=== PATIENT | female | born 1970 | race Caucasian/White ===

== ENCOUNTER 2020-12-19 10:57 | Emergency (ER) | payer OTHER ==
--- OUTSIDE RECORDS SUMMARY | 2020-12-19 10:59 | XMS REPORT | Continuity of Care Document ---
:1970 Author Organization [facility] t Address [address] [place] [address] Care Team Providers Name Role Phone Sherwin SZYMANSKI Attending Clinician 2, Lab Attending Clinician Unavailable Problems This patient has no known problems. Allergies, Adverse Reactions, Alerts This patient has no known allergies or adverse reactions. Medications This patient has no known medications. Procedures This patient has no known procedures. Encounters Start End Encounter Admission Attending Care Care Encounter Source Date/Time Date/Time Type Type Clinicians Facility Department ID 2020-11-08 2020-11-08 Refill LM Courtney [id number] 00:00:00 00:00:00 Mak Aguilar [id number] [place] [id number] Professio [phone] [facility] 2020-11-02 2020-11-02 Mailing Clerk 2, [facility] Lab [facility] [[email or web address]] [id number] 13:24:05 13:39:05 Visit Lauren [id number] Bl[place] [id number] Professio [phone] [facility] 2020-11-02 2020-11-02 Office LM Cuortney [id number] 11:28:22 11:49:50 Visit Mak Aguilar [id number] [place] [id number] Professio [phone] 9 [facility] Results This patient has no known results.
[2020-12-19 11:26] LABS: Urine Blood Negative (Negative); Urine Glucose 1+ (Negative); Urine Protein Negative (Negative); Urine Specific Gravity 1.025 (1.005-1.030)
[2020-12-19] MEDS ORDERED: NA CHLORIDE 0.9% 1,000 ML ONE (11:39)
[2020-12-19] MEDS ORDERED: ONDANSETRON 4 MG/2 ML VIAL ONE (11:39)
[2020-12-19] MEDS ORDERED: MORPHINE 4 MG/ML SYR ONE (11:39)
[2020-12-19 11:51] LABS: Absolute Lymphocytes (CBC) 1.6 K/uL (0.7-4.9); Basophils % 0.4 % (0-1.3); Hematocrit 39.5 % (36.0-45.0); Lymphocytes % 14.4 % (15.3-44.8); MPV 8.2 fL (7.6-11.3); RBC Red Blood Cell Count 4.73 M/uL (3.86-4.86)
[2020-12-19 11:54] LABS: Urine RBC <5 /HPF (NONE SEEN)
[2020-12-19 11:55] LABS: Urine Bacteria <20 /HPF (<20); Urine Mucus 1+ /HPF (NONE SEEN)
[2020-12-19 12:02] LABS: Albumin 3.2 g/dL (3.4-5.0); Bilirubin Direct 0.2 mg/dL (0-0.2); Bilirubin Total 0.7 mg/dL (0.2-1.0); Potassium 3.9 mmol/L (3.5-5.1); Protein, Total 7.9 g/dL (6.4-8.2)
--- NOTE | 2020-12-19 13:04 | RAD REPORT ---
EXAM DESCRIPTION: CT - Abdomen Pelvis W Contrast - 12/19/2020 12:35 pm CLINICAL HISTORY: Abdominal pain COMPARISON: 2016 TECHNIQUE: Computed axial tomography of the abdomen pelvis was obtained. 100 cc Isovue-300 was admin istered intravenously. Oral contrast was not requested which limits evaluation of bowel. All CT scans are performed using dose optimization technique as appropriate and may include automated exposure control or mA/KV adjustment according to patient size. FINDINGS: Fatty liver Spleen, pancreas, adrenals and kidneys unremarkable Normal appendix. Diverticula stem from the colon. Mild to moderate stranding adjacent to sigmoid colon Prominence of the endometrium. If the patient is premenopausal this is normal. If the patient is post menopausal this is abnormal Small umbilical hernia IMPRESSION: Mild to moderate sigmoid diverticulitis
--- NOTE | 2020-12-19 13:26 | ER ---
Nurse's Notes [facility] Name: Adilson Patel Age: 50 yrs Sex: Female : 1970 Arrival Date: 12/19/2020 Time: 11:00 Bed 16 Private MD: Diagnosis: Diverticulitis of intestine, part unspecified, without perforation or abscess without bleeding Presentation: 12/19 11:08 Chief complaint: Right flank pain that radiates to lower abdomen and nausea x 4 days. hb Denies fever/diarrhea/urinary symptoms. Coronavirus screen: At this time, the client does not indicate any symptoms associated with coronavirus-19. Ebola Screen: No symptoms or risks identified at this time. Initial Sepsis Screen: Does the patient meet any 2 criteria? No. Patient's initial sepsis screen is negative. Does the patient have a suspected source of infection? No. Patient's initial sepsis screen is negative. Risk Assessment: Do you want to hurt yourself or someone else? Patient reports no desire to harm self or others. Onset of symptoms was December 15, 2020. 11:08 Method Of Arrival: Ambulatory hb 11:08 Acuity: OVIDIO 3 hb Triage Assessment: 12:26 General: Appears in no apparent distress. Behavior is calm, cooperative, appropriate tr6 for age. Pain: Complains of pain in lower abdomen. EENT: No deficits noted. Neuro: No deficits noted. Cardiovascular: No deficits noted. Respiratory: No deficits noted. GI: Abdomen is round. : No deficits noted. Derm: No deficits noted. Musculoskeletal: No deficits noted. Historical: - Allergies: 11:10 Latex, Natural Rubber; hb 11:10 mycins; hb - Home Meds: 11:10 metformin 1,000 mg Oral tab 1 tab 2 times per day [Active]; Vitamin D3 1,000 unit Oral hb tab daily [Active]; - PMHx: 11:10 Diabetes - NIDDM; Kidney stones; Ovarian cyst; hb - PSHx: 11:10 HEART CATH; hb - Immunization history:: Adult Immunizations up to date. - Social history:: Smoking status: Patient denies any tobacco usage or history of. Screenin:38 Abuse screen: Denies threats or abuse. Denies injuries from another. Nutritional tr6 screening: No deficits noted. Tuberculosis screening: No symptoms or risk factors identified. Fall Risk None identified. Assessment: 12:26 Reassessment: pt transported to CT via wheelchair. tr6 13:16 GI: Bowel sounds present X 4 quads. Abdomen is tender to palpation LLQ. tr6 Vital Signs: 11:08 BP 168 / 75; Pulse 96; Resp 16; Temp 97.9(TE); Pulse Ox 100% on R/A; Weight 79.38 kg; hb Height 5 ft. 3 in. (160.02 cm); Pain 8/10; 13:16 BP 115 / 76; Pulse 80; Resp 18; Pulse Ox 100% on R/A; tr6 11:08 Body Mass Index 31.00 (79.38 kg, 160.02 cm) hb ED Course: 11:00 Patient arrived in ED. mr 11:08 Rosanna Tate FNP-C is PHCP. kb 11:08 Luis Underwood MD is Attending Physician. kb 11:09 Triage completed. hb 11:10 Arm band placed on. hb 11:13 Umm Moses, GINA is Primary Nurse. tr6 11:32 Urine Microscopic Only Sent. dh3 11:38 Inserted saline lock: 18 gauge in left forearm, using aseptic technique. Blood tr6 collected. 12:28 Patient has correct armband on for positive identification. Bed in low position. Call tr6 light in reach. Side rails up X 1. environmental monitoring specialist on. Pulse ox on. NIBP on. Door closed. Noise minimized. Visitors limited. Warm blanket given. 12:28 No provider procedures requiring assistance completed. tr6 12:35 CT Abd/Pelvis - IV Contrast Only In Process Unspecified. EDMS 13:25 IV discontinued, intact, bleeding controlled, No redness/swelling at site. Pressure tr6 dressing applied. Administered Medications: 11:37 Drug: NS 0.9% 1000 ml Route: IV; Rate: 1000 ml; Site: left forearm; tr6 12:27 Follow up: Response: No adverse reaction; IV Status: Completed infusion; IV Intake: tr6 1000ml 11:37 Drug: Zofran (Ondansetron) 4 mg Route: IVP; Site: left forearm; tr6 12:27 Follow up: Response: No adverse reaction tr6 11:37 Drug: morphine 4 mg Route: IVP; Site: left forearm; tr6 12:27 Follow up: Response: No adverse reaction tr6 13:14 Drug: Flagyl (metroNIDAZOLE) 500 mg Route: PO; tr6 13:44 Follow up: Response: No adverse reaction tr6 13:15 Drug: Cipro (ciprofloxacin) 500 mg Route: PO; tr6 13:44 Follow up: Response: No adverse reaction tr6 Intake: 12:27 IV: 1000ml; Total: 1000ml. tr6 Outcome: 13:25 Discharge ordered by MD. josé 13:40 Discharged to home ambulatory. tr6 13:40 Condition: stable 13:40 Discharge instructions given to patient, Instructed on discharge instructions, follow up and referral plans. no drinking with medication, medication usage, safety practices, Demonstrated understanding of instructions, follow-up care, medications, Prescriptions given X 4. 14:04 Patient left the ED. tr6 Signatures: Dispatcher [employer] EDMS Rosanna Tate, BATTALION FIRE CHIEF-C BATTALION FIRE CHIEF-Elizabeth Douglas Heather, RN RN hb Herrera, Deanna [facility] Umm Moses RN RN tr6
--- NOTE | 2020-12-19 13:26 | EDPHYS ---
Physician Documentation [facility] Name: Adilson Patel Age: 50 yrs Sex: Female : 1970 Arrival Date: 12/19/2020 Time: 11:00 Bed 16 Private MD: ED Physician Luis Underwood HPI: 12/19 14:04 This 50 yrs old Female presents to ER via Ambulatory with complaints of kb Abdominal Pain. 14:04 The patient presents with abdominal pain in the lower abdomen. The symptoms do not kb radiate. The patient has not experienced similar symptoms in the past. The patient has not recently seen a physician. 14:04 Onset: The symptoms/episode began/occurred 4 day(s) ago. Associated signs and symptoms: kb none. The symptoms are described as constant. Modifying factors: The symptoms are alleviated by nothing, the symptoms are aggravated by nothing. Severity of pain: At its worst the pain was mild moderate in the emergency department the pain is unchanged. Pt reports right flank pain that radiates into right lower abd that started 4 days ago. States the pain is now across entire lower abdomen. Denies n/v/d, fever/chills. Historical: - Allergies: 11:10 Latex, Natural Rubber; hb 11:10 mycins; hb - Home Meds: 11:10 metformin 1,000 mg Oral tab 1 tab 2 times per day [Active]; Vitamin D3 1,000 unit Oral hb tab daily [Active]; - PMHx: 11:10 Diabetes - NIDDM; Kidney stones; Ovarian cyst; hb - PSHx: 11:10 HEART CATH; hb - Immunization history:: Adult Immunizations up to date. - Social history:: Smoking status: Patient denies any tobacco usage or history of. ROS: 14:03 Constitutional: Negative for fever, chills, and weight loss. kb 14:03 Abdomen/GI: Positive for abdominal pain, Negative for nausea, vomiting, and diarrhea. 14:03 All other systems are negative. Exam: 14:03 Constitutional: This is a well developed, well nourished patient who is awake, alert, kb and in no acute distress. Head/Face: Normocephalic, atraumatic. ENT: Moist Mucous membranes Cardiovascular: Regular rate and rhythm with a normal S1 and S2. No gallops, murmurs, or rubs. No pulse deficits. Respiratory: Respirations even and unlabored. No increased work of breathing, no retractions or nasal flaring. Skin: Warm, dry with normal turgor. Normal color. MS/ Extremity: Pulses equal, no cyanosis. Neurovascular intact. Full, normal range of motion. Neuro: Awake and alert, GCS 15, oriented to person, place, time, and situation. Moves all extremities. Normal gait. Psych: Awake, alert, with orientation to person, place and time. Behavior, mood, and affect are within normal limits. 14:03 Abdomen/GI: Inspection: abdomen appears normal, Bowel sounds: normal, in all quadrants, Palpation: soft, in all quadrants, mild abdominal tenderness, in the right lower quadrant, moderate abdominal tenderness, in the left lower quadrant. Vital Signs: 11:08 BP 168 / 75; Pulse 96; Resp 16; Temp 97.9(TE); Pulse Ox 100% on R/A; Weight 79.38 kg; hb Height 5 ft. 3 in. (160.02 cm); Pain 8/10; 13:16 BP 115 / 76; Pulse 80; Resp 18; Pulse Ox 100% on R/A; tr6 11:08 Body Mass Index 31.00 (79.38 kg, 160.02 cm) hb MDM: 11:08 Patient medically screened. kb 14:02 Data reviewed: vital signs, nurses notes. Data interpreted: Pulse oximetry: on room air kb is 100 %. Interpretation: normal. Counseling: I had a detailed discussion with the patient and/or guardian regarding: the historical points, exam findings, and any diagnostic results supporting the discharge/admit diagnosis, lab results, radiology results, the need for outpatient follow up, a family practitioner, a lode miner blasting, to return to the emergency department if symptoms worsen or persist or if there are any questions or concerns that arise at home. 14:05 ED course: Discussed outpatient antibiotic treatment with pt. Pt in agreement with kb that. Pt educated to return immediately for severe pain, inability to tolerate PO medications and any other concerns. . 12/19 11:08 Order name: Basic Metabolic Panel 12/19 11:08 Order name: CBC with Diff 12/19 11:08 Order name: Hepatic Function 12/19 11:08 Order name: Lipase 12/19 11:09 Order name: Basic Metabolic Panel; Complete Time: 12:04 EDWA 12/19 11:09 Order name: CBC with Automated Diff; Complete Time: 12:50 EDWA 12/19 11:09 Order name: Liver (Hepatic) Function; Complete Time: 12:04 EDWA 12/19 11:09 Order name: Lipase; Complete Time: 12:04 EDWA 12/19 11:26 Order name: Urine Dipstick-Ancillary EDWA 12/19 11:26 Order name: Urine Microscopic Only em1 12/19 11:27 Order name: Urine Microscopic Only; Complete Time: 11:55 EDMS 12/19 12:05 Order name: CT Abd/Pelvis - IV Contrast Only; Complete Time: 13:05 kb 12/19 11:08 Order name: IV Saline Lock; Complete Time: 11:38 kb 12/19 11:08 Order name: Labs collected and sent; Complete Time: 11:38 kb 12/19 11:13 Order name: Urine Dipstick-Ancillary (obtain specimen); Complete Time: 11:26 kb Administered Medications: 11:37 Drug: NS 0.9% 1000 ml Route: IV; Rate: 1000 ml; Site: left forearm; tr6 12:27 Follow up: Response: No adverse reaction; IV Status: Completed infusion; IV Intake: tr6 1000ml 11:37 Drug: Zofran (Ondansetron) 4 mg Route: IVP; Site: left forearm; tr6 12:27 Follow up: Response: No adverse reaction tr6 11:37 Drug: morphine 4 mg Route: IVP; Site: left forearm; tr6 12:27 Follow up: Response: No adverse reaction tr6 13:14 Drug: Flagyl (metroNIDAZOLE) 500 mg Route: PO; tr6 13:44 Follow up: Response: No adverse reaction tr6 13:15 Drug: Cipro (ciprofloxacin) 500 mg Route: PO; tr6 13:44 Follow up: Response: No adverse reaction tr6 Disposition: 12/19/20 13:25 Discharged to Home. Impression: Diverticulitis of intestine, part unspecified, without perforation or abscess without bleeding. - Condition is Stable. - Discharge Instructions: Diverticulitis, [id number]. - Prescriptions for Flagyl 500 mg Oral Tablet - take 1 tablet by ORAL route every 8 hours for 10 days; 30 tablet. Zofran 4 mg Oral Tablet - take 1 tablet by ORAL route every 6 hours As needed; 20 tablet. Cipro 500 mg Oral Tablet - take 1 tablet by ORAL route every 12 hours for 10 days; 20 tablet. Tramadol 50 mg Oral Tablet - take 1 tablet by ORAL route every 8 hours as needed; 12 tablet. - Medication Reconciliation Form, Thank You Letter, Antibiotic Education, Prescription Opioid Use, Work release form form. - Follow up: Emergency Department; When: As needed; Reason: Worsening of condition. Follow up: Private Physician; When: 2 - 3 days; Reason: Recheck today's complaints, Continuance of care, Re-evaluation by your physician. Addendum: 12/23/2020 06:57 Co-signature as Attending Physician, Luis Underwood MD. m a2 Signatures: Dispatcher [employer] EDMS Rosanna Tate, PATI-C PATI-Radha Poon, RN RN Luis Underwood MD MD ma2 Umm Moses RN RN tr6 Corrections: (The following items were deleted from the chart) 12/19 14:04 13:25 12/19/2020 13:25 Discharged to Home. Impression: Diverticulitis of intestine, tr6 part unspecified, without perforation or abscess without bleeding. Condition is Stable. Forms are Work release form, Medication Reconciliation Form, Thank You Letter, Antibiotic Education, Prescription Opioid Use. Follow up: Emergency Department; When: As needed; Reason: Worsening of condition. Follow up: Private Physician; When: 2 - 3 days; Reason: Recheck today's complaints, Continuance of care, Re-evaluation by your physician. kb
[2020-12-19] MEDS ORDERED: CIPROFLOXACIN HCL 500 MG TAB ONE (13:33)
[2020-12-19] MEDS ORDERED: metroNIDAZOLE 500 MG TABLET ONE (13:33)
[2020-12-19 14:35] VITALS: TEMP 97.9; O2SAT 100
[2020-12-19 14:36] VITALS: BP 115/76
== END 2020-12-19 14:04 | disposition home or self-care (01) ==
LOC: ER 10:57
DX: K57.32 Diverticulitis of large intestine without perforation or abscess without bleeding (principal); E11.9 Type 2 diabetes mellitus without complications; Z88.3 Allergy status to other anti-infective agents; Z91.040 Latex allergy status; Z91.048 Other nonmedicinal substance allergy status
CPT/HCPCS: 85025; 80048; 36415; 80076; 83690; 74177; Q9967; J7030; J2405; 81003; 81015; 96361; 96374; 96375; 99284

== ENCOUNTER 2021-05-22 09:37 | Emergency (ER) | payer OTHER ==
[2021-05-22 10:15] LABS: Absolute Lymphocytes (CBC) 2.4 K/uL (0.7-4.9); Basophils % 0.7 % (0-1.3); Hematocrit 38.7 % (36.0-45.0); Lymphocytes % 23.3 % (15.3-44.8); RBC Red Blood Cell Count 4.65 M/uL (3.86-4.86)
[2021-05-22 10:22] LABS: Urine Blood Negative (Negative); Urine Glucose Negative (Negative); Urine Protein Negative (Negative); Urine pH 5.5 (5.0-7.0)
[2021-05-22] MEDS ORDERED: CIPROFLOXACIN 400mg IV 400 MG/200 ML BAG IV ONE (10:32)
[2021-05-22] MEDS ORDERED: WATER FOR INJ,STERILE 10 ML ONE (10:32)
[2021-05-22] MEDS ORDERED: CEFTRIAXONE 500 MG/VIAL ONE (10:32)
[2021-05-22] MEDS ORDERED: NA CHLORIDE 0.9% 1,000 ML ONE (10:33)
[2021-05-22] MEDS ORDERED: METRONIDAZOLE 500mg IVPB 500 MG/100 ML BAG IV ONE (10:33)
--- NOTE | 2021-05-22 11:14 | RAD REPORT ---
EXAM DESCRIPTION: CTAbdomen Pelvis W Contrast - 05/22/2021 10:31 am CLINICAL HISTORY: Abdominal pain. ABD PAIN COMPARISON: Abdomen Pelvis W Contrast dated 12/19/2020; Abdomen Pelvis W Contrast dated 03/21/2017 ; Abdomen Pelvis W Contrast dated 07/10/2016 TECHNIQUE: Biphasic CT imaging of the abdomen and pelvis was performed with 100 ml non-ionic IV cont rast. All CT scans are performed using dose optimization technique as appropriate and may include automated exposure control or mA/KV adjustment according to patient size. FINDINGS: The lung bases are clear. The liver demonstrates diffuse fatty infiltration. Spleen, pancreas, adrenal glands and kidneys are w ithin normal limits. No bowel obstruction, free air, free fluid or abscess. Mild sigmoid diverticulosis is present without diverticulitis. The appendix is normal. No evidence of significant lymphadenopathy. No suspicious bony findings. IMPRESSION: No acute intra-abdominal or pelvic finding. Mild sigmoid diverticulosis coli. Diffuse fatty liver.
--- NOTE | 2021-05-22 11:18 | ER ---
Nurse's Notes [facility] Name: Adilson Patel Age: 51 yrs Sex: Female : 1970 Arrival Date: 05/22/2021 Time: 09:39 Bed 14 Private MD: Diagnosis: Abdominal pain, Generalized;Diverticulitis of large intestine without perforation or abscess without bleeding Presentation: 05/22 09:56 Chief complaint: Patient states: c/o abd pain and spasm x 2 days. Coronavirus screen: [facility] Vaccine status: Patient reports being unvaccinated. Client denies travel out of the [place] in the last 14 days. Client indicates they have traveled out of the [place] in the last 14 days. Ebola Screen: Patient negative for fever greater than or equal to 101.5 degrees Fahrenheit, and additional compatible Ebola Virus Disease symptoms Patient denies exposure to infectious person. Patient denies travel to an Ebola-affected area in the 21 days before illness onset. Initial Sepsis Screen: Does the patient meet any 2 criteria? No. Patient's initial sepsis screen is negative. Does the patient have a suspected source of infection? No. Patient's initial sepsis screen is negative. Risk Assessment: Do you want to hurt yourself or someone else? Patient reports no desire to harm self or others. Onset of symptoms was May 20, 2021. 09:56 Method Of Arrival: Ambulatory [facility] 09:56 Acuity: OVIDIO 3 jw6 Triage Assessment: 09:59 General: Appears uncomfortable, Behavior is calm, cooperative. Pain: Complains of pain jw6 in abdomen Pain does not radiate. Pain currently is 10 out of 10 on a pain scale. EENT: No deficits noted. Neuro: No deficits noted. Cardiovascular: No deficits noted. Respiratory: No deficits noted. GI: Reports lower abdominal pain, cramping, nausea. : No deficits noted. Derm: No deficits noted. Musculoskeletal: No deficits noted. CLINICAL NURSE SPECIALIST: 10:25 0, LMP 04/29/2021 6 Historical: - Allergies: 09:58 Latex, Natural Rubber; ll1 09:58 mycins; ll1 09:59 Latex, Natural Rubber; jw6 - Home Meds: 09:59 metformin 1,000 mg Oral tab 1 tab 2 times per day [Active]; Vitamin D3 1,000 unit Oral jw6 tab daily [Active]; - PMHx: 09:58 Diabetes - NIDDM; Kidney stones; Ovarian cyst; Hypercholesterolemia; Hypertensive ll1 disorder; 10:02 Diverticulitis; ll1 - PSHx: 09:58 heart cath; ll1 - Immunization history:: Client reports receiving the 2nd dose of the Covid vaccine, Adult Immunizations up to date. - Social history:: Smoking status: Patient denies any tobacco usage or history of. Smoking status: Patient denies any tobacco usage or history of. - Family history:: not pertinent. Screenin:01 Abuse screen: Denies threats or abuse. Denies injuries from another. Nutritional jw6 screening: No deficits noted. Tuberculosis screening: No symptoms or risk factors identified. Fall Risk IV access (20 points). Assessment: 10:01 General: Appears distressed, Behavior is cooperative. Pain: Complains of pain in jw6 abdomen Pain does not radiate. Pain currently is 10 out of 10 on a pain scale. Neuro: No deficits noted. Cardiovascular: No deficits noted. Respiratory: No deficits noted. GI: Bowel sounds present X 4 quads. Abdomen is tender to palpation X 4 quads. Reports nausea. : No deficits noted. EENT: No deficits noted. Derm: No deficits noted. Musculoskeletal: No deficits noted. Vital Signs: 09:56 BP 150 / 75; Pulse 96; Resp 18; Pulse Ox 100% ; Weight 77.11 kg; Height 5 ft. 3 in. jw6 (160.02 cm); Pain 10/10; 09:59 BP 140 / 86; Pulse 79; Resp 17; Temp 97.6; Pulse Ox 98% ; Weight 77.11 kg; Height 5 ft. ll1 3 in. (160.02 cm); Pain 8/10; 10:01 BP 140 / 86; Resp 18; Pulse Ox 98% on R/A; jw6 09:59 Body Mass Index 30.11 (77.11 kg, 160.02 cm) ll1 ED Course: 09:39 Patient arrived in ED. as 09:40 Shad Johnston MD is Attending Physician. [facility] 09:56 Crystal Laura is Primary Nurse. jw6 09:58 Arm band placed on Patient placed in an exam room, on a stretcher. ll1 09:59 Triage completed. jw6 10:01 Patient has correct armband on for positive identification. Bed in low position. Call jw6 light in reach. Side rails up X 1. 10:01 Initial lab(s) drawn, by me, sent to lab. Inserted saline lock: 20 gauge in right jw6 forearm, using aseptic technique. 10:30 CT Abd/Pelvis - IV Contrast Only In Process Unspecified. EDMS 11:17 Leonor cMginnis MD is Referral Physician. [facility] Administered Medications: 10:24 Drug: Rocephin (cefTRIAXone) 2 grams Route: IV; Rate: per protocol; Site: right forearm;jw6 10:24 Follow up: Response: No adverse reaction; IV Status: Completed infusion jw6 10:40 Drug: Flagyl (metroNIDAZOLE) 500 mg Volume: 100 ml; Route: IVPB; Rate: 200 ml/hr; jw6 Infused Over: 30 mins; Site: right forearm; 10:50 Follow up: Response: No adverse reaction; IV Status: Completed infusion; IV Intake: jw6 100ml 10:41 Drug: NS 0.9% 1000 ml Route: IV; Rate: 1 bolus; Site: right forearm; jw6 10:50 Drug: Cipro (ciprofloxacin) 400 mg Volume: 200 ml; Route: IVPB; Infused Over: 60 mins; jw6 Site: right forearm; 12:01 Drug: Zofran (Ondansetron) 4 mg Route: IVP; Site: right forearm; jw6 12:01 Follow up: Response: No adverse reaction jw6 Intake: 10:50 IV: 100ml; Total: 100ml. jw6 Outcome: 11:17 Discharge ordered by . [facility] 12:31 Patient left the ED. jw6 Signatures: Dispatcher [employer] EDOH Shad Johnston MD MD cha Martinez, Amelia as Lewis, Lynsay, RN RN ll1 Crystal Laura jw6
--- NOTE | 2021-05-22 11:18 | EDPHYS ---
Physician Documentation [facility] Name: Adilson Patel Age: 51 yrs Sex: Female : 1970 Arrival Date: 05/22/2021 Time: 09:39 Bed 14 Private MD: HAIM Physician Shad Johnston HPI: 05/22 10:14 This 51 yrs old Female presents to ER via Ambulatory with complaints of molly Abdominal Pain. 10:14 The patient presents with abdominal pain in the left upper quadrant, in the left lower molly quadrant, abdominal distention in the upper abdomen, in the lower abdomen. Onset: The symptoms/episode began/occurred 3 day(s) ago. The symptoms do not radiate. Associated signs and symptoms: Pertinent positives: nausea and vomiting. The symptoms are described as crampy, dull. Modifying factors: The symptoms are alleviated by nothing, the symptoms are aggravated by nothing. Severity of pain: At its worst the pain was mild moderate in the emergency department the pain is unchanged. The patient has experienced similar episodes in the past, several times. 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 - Social history:: Smoking status: Patient denies any tobacco usage or history of. Smoking status: Patient denies any tobacco usage or history of. - Family history:: not pertinent. ROS: 10:14 Constitutional: Negative for fever, chills, and weight loss, Eyes: Negative for injury, molly pain, redness, and discharge, ENT: Negative for injury, pain, and discharge, Neck: Negative for injury, pain, and swelling, Cardiovascular: Negative for chest pain, palpitations, and edema, Respiratory: Negative for shortness of breath, cough, wheezing, and pleuritic chest pain, Back: Negative for injury and pain, : Negative for injury, bleeding, discharge, and swelling, MS/Extremity: Negative for injury and deformity, Skin: Negative for injury, rash, and discoloration, Neuro: Negative for headache, weakness, numbness, tingling, and seizure, Psych: Negative for depression, anxiety, suicide ideation, homicidal ideation, and hallucinations, Allergy/Immunology: Negative for hives, rash, and allergies, Endocrine: Negative for neck swelling, polydipsia, polyuria, polyphagia, and marked weight changes, Hematologic/Lymphatic: Negative for swollen nodes, abnormal bleeding, and unusual bruising. 10:14 Abdomen/GI: Positive for abdominal pain, nausea and vomiting, of the left upper quadrant and left lower quadrant. Exam: 10:14 Constitutional: This is a well developed, well nourished patient who is awake, alert, molly and in no acute distress. Head/Face: Normocephalic, atraumatic. Eyes: Pupils equal round and reactive to light, extra-ocular motions intact. Lids and lashes normal. Conjunctiva and sclera are non-icteric and not injected. Cornea within normal limits. Periorbital areas with no swelling, redness, or edema. ENT: Nares patent. No nasal discharge, no septal abnormalities noted. Tympanic membranes are normal and external auditory canals are clear. Oropharynx with no redness, swelling, or masses, exudates, or evidence of obstruction, uvula midline. Mucous membranes moist. Neck: Trachea midline, no thyromegaly or masses palpated, and no cervical lymphadenopathy. Supple, full range of motion without nuchal rigidity, or vertebral point tenderness. No Meningismus. Chest/axilla: Normal chest wall appearance and motion. Nontender with no deformity. No lesions are appreciated. Cardiovascular: Regular rate and rhythm with a normal S1 and S2. No gallops, murmurs, or rubs. Normal PMI, no JVD. No pulse deficits. Respiratory: Lungs have equal breath sounds bilaterally, clear to auscultation and percussion. No rales, rhonchi or wheezes noted. No increased work of breathing, no retractions or nasal flaring. Back: No spinal tenderness. No costovertebral tenderness. Full range of motion. Female : Normal external genitalia. Skin: Warm, dry with normal turgor. Normal color with no rashes, no lesions, and no evidence of cellulitis. MS/ Extremity: Pulses equal, no cyanosis. Neurovascular intact. Full, normal range of motion. Neuro: Awake and alert, GCS 15, oriented to person, place, time, and situation. Cranial nerves II-XII grossly intact. Motor strength 5/5 in all extremities. Sensory grossly intact. Cerebellar exam normal. Normal gait. Psych: Awake, alert, with orientation to person, place and time. Behavior, mood, and affect are within normal limits. 10:14 Abdomen/GI: Inspection: distension, that is mild, Bowel sounds: active, Palpation: mild abdominal tenderness, in the left upper quadrant and left lower quadrant, Liver: no appreciated palpable abnormalities, Hernia: not appreciated. Vital Signs: 09:56 BP 150 / 75; Pulse 96; Resp 18; Pulse Ox 100% ; Weight 77.11 kg; Height 5 ft. 3 in. jw6 (160.02 cm); Pain 10/10; 09:59 BP 140 / 86; Pulse 79; Resp 17; Temp 97.6; Pulse Ox 98% ; Weight 77.11 kg; Height 5 ft. ll1 3 in. (160.02 cm); Pain 8/10; 10:01 BP 140 / 86; Resp 18; Pulse Ox 98% on R/A; jw6 09:59 Body Mass Index 30.11 (77.11 kg, 160.02 cm) ll1 MDM: 09:45 Patient medically screened. [facility] 10:17 Differential diagnosis: bowel obstruction, cholecystitis, Cholelithiasis, molly diverticulitis, gastritis, Irritable bowel syndrome, Mesenteric ischemia or infarction, non-specific abd pain, pancreatitis, Peptic Ulcer Disease, Pyelonephritis, urinary tract infection. Data reviewed: vital signs, nurses notes, lab test result(s), radiologic studies, CT scan. Data interpreted: Pulse oximetry: is not applicable for this patient encounter. on room air. Counseling: I had a detailed discussion with the patient and/or guardian regarding: the historical points, exam findings, and any diagnostic results supporting the discharge/admit diagnosis, lab results, radiology results. 05/22 10:00 Order name: Basic Metabolic Panel [facility] 05/22 10:00 Order name: CBC with Diff; Complete Time: 10:57 [facility] 05/22 10:00 Order name: Hepatic Function [facility] 05/22 10:00 Order name: Lipase molly 05/22 10:00 Order name: Urine Culture [facility] 05/22 10:22 Order name: Urine Dipstick-Ancillary; Complete Time: 10:57 EDMS 05/22 10:00 Order name: IV Saline Lock; Complete Time: 10:03 [facility] 05/22 10:00 Order name: CT Abd/Pelvis - IV Contrast Only; Complete Time: 11:17 [facility] 05/22 10:23 Order name: Urine --Ancillary (enter results) 05/22 10:00 Order name: Labs collected and sent; Complete Time: 10:03 [facility] 05/22 10:00 Order name: Urine Dipstick-Ancillary (obtain specimen) [facility] 05/22 10:19 Order name: Urine Test (obtain specimen); Complete Time: 10:41 [facility] Administered Medications: 10:24 Drug: Rocephin (cefTRIAXone) 2 grams Route: IV; Rate: per protocol; Site: right forearm;jw6 10:24 Follow up: Response: No adverse reaction; IV Status: Completed infusion jw6 10:40 Drug: Flagyl (metroNIDAZOLE) 500 mg Volume: 100 ml; Route: IVPB; Rate: 200 ml/hr; jw6 Infused Over: 30 mins; Site: right forearm; 10:50 Follow up: Response: No adverse reaction; IV Status: Completed infusion; IV Intake: jw6 100ml 10:41 Drug: NS 0.9% 1000 ml Route: IV; Rate: 1 bolus; Site: right forearm; jw6 10:50 Drug: Cipro (ciprofloxacin) 400 mg Volume: 200 ml; Route: IVPB; Infused Over: 60 mins; jw6 Site: right forearm; 12:01 Drug: Zofran (Ondansetron) 4 mg Route: IVP; Site: right forearm; jw6 12:01 Follow up: Response: No adverse reaction jw6 Disposition Summary: 05/22/21 11:17 Discharge Ordered Location: Home molly Problem: new molly Symptoms: have improved molly Condition: Stable molly Diagnosis - Abdominal pain, Generalized molly - Diverticulitis of large intestine without perforation or abscess without bleeding molly Followup: molly - With: Private Physician - When: 2 - 3 days - Reason: Recheck today's complaints, Continuance of care, Re-evaluation by your physician Followup: molly - With: - When: 2 - 3 days - Reason: Recheck today's complaints, Continuance of care, Re-evaluation by your physician Discharge Instructions: - Discharge Summary Sheet molly - Abdominal Pain, Adult molly - High-Fiber Diet molly - Diverticulitis molly - Diverticulitis, [id number] [facility] - Form - Excuse from Work, School, or Physical Activity jw6 Forms: - Medication Reconciliation Form [facility] - Thank You Letter molly - Antibiotic Education [facility] - Prescription Opioid Use [facility] Prescriptions: - Flagyl 500 mg Oral Tablet - take 1 tablet by ORAL route every 6 hours for 10 days; 40 tablet; Refills: 0, [facility] Product Selection Permitted - Zofran 4 mg Oral Tablet - take 1 tablet by ORAL route every 12 hours As needed; 20 tablet; Refills: 0, [facility] Product Selection Permitted - Cipro 500 mg Oral Tablet - take 1 tablet by ORAL route every 12 hours for 10 days; 20 tablet; Refills: 0, [facility] Product Selection Permitted - dicyclomine 20 mg Oral Tablet - take 2 tablets by ORAL route 4 times per day; 28 tablet; Refills: 0, Product [facility] Selection Permitted Signatures: Dispatcher [employer] Shad Gomez MD MD cha Lewis, Lynsay, RN RN ll1 Crystal Laura jw6
[2021-05-22] MEDS ORDERED: ONDANSETRON 4 MG/2 ML VIAL ONE (12:24)
[2021-05-22 12:56] VITALS: BP 140/86; TEMP 97.6; O2SAT 98
[2021-05-22 13:07] LABS: ALT/SGPT 56 U/L (12-78); AST/SGOT 41 U/L (15-37); Albumin 3.3 g/dL (3.4-5.0); Alkaline Phosphatase 106 U/L (45-117); BUN Blood Urea Nitrogen 7 mg/dL (7-18); Bicarbonate 28 mmol/L (21-32); Bilirubin Direct 0.1 mg/dL (0-0.2); Bilirubin Total 0.5 mg/dL (0.2-1.0); Glucose Level 185 mg/dL (74-106); Lipase 291 U/L (73-393); Potassium 3.8 mmol/L (3.5-5.1); Protein, Total 7.9 g/dL (6.4-8.2); Sodium Level 140 mmol/L (136-145)
== END 2021-05-22 12:31 | disposition home or self-care (01) ==
LOC: ER 09:37
DX: K57.32 Diverticulitis of large intestine without perforation or abscess without bleeding (principal); E11.9 Type 2 diabetes mellitus without complications; I10 Essential (primary) hypertension; Z88.3 Allergy status to other anti-infective agents; Z91.040 Latex allergy status; Z91.048 Other nonmedicinal substance allergy status
CPT/HCPCS: 87088; 85025; 87086; 80048; 36415; 81025; 82565; 80076; 81003; 83690; 74177; 96375; 96374; 99284; Q9967; J7030; J2405; J0696; J0744

== ENCOUNTER 2021-07-26 16:32 | Emergency (ER) | payer OTHER, SELFPAY ==
--- OUTSIDE RECORDS SUMMARY | 2021-07-26 16:35 | XMS REPORT | Continuity of Care Document ---
:1970 Author Organization [facility] t Address [address] [place] [address] Care Team Providers Name Role Phone Lucho PANDEY Primary Care Physician Unavailable CONNIE Attending Clinician Unavailable Lucho PANDEY Attending Clinician Unavailable Doctor Unassigned, Name Attending Clinician Unavailable Mitali SZYMANSKI, Lucho Attending Clinician Connie SZYMANSKI Attending Clinician [facility] Attending Clinician Unavailable Gurvinder MAY Attending Clinician Unavailable 2, Lab Attending Clinician Unavailable SEMAJ Attending Clinician Unavailable Payers Payer Name Policy Type Policy Number Effective Date Expiration Date [facility] [id number] 2017 CHOICE 00:00:00 Problems Condition Condition Condition Status Onset Resolution Last Treating Co mments Source Name Details Category Date Date Treatment Clinician Date CHRISTI on CHRISTI on Disease Active 2020-07 Univers CPAP CPAP 0-12 ity of 00:: [place] [facility] Cough Cough Disease Active Univers 8-03 ity of 00:00: [place] [facility] Sinus Sinus Disease Active Univers congestion congestion 8-03 it y of 00:00: [place] [facility] Vitamin D Vitamin D Disease Active Uni vers deficiency deficiency 8- it y of 00:00: [place] [facility] Dyslipidem Dyslipidem Disease Active U nivers ia ia 8- ity of 00:00: [place] [facility] Type 2 Type 2 Disease Active Univers diabetes diabetes 6- ity of mellitus mellitus 00:00: [place] without without 00 Medical complicati complicati Br anch on, on, without without long-term long-term current current use of use of insulin insulin Pain of Pain of Disease Active Univers both both 6- ity of shoulder shoulder 00:00: [place] joints joints 00 Medical Branch Pain of Pain of Disease Active Univers right hip right hip 6 ity of joint joint 00:00: [place] 00 Medical Branch Kidney Kidney Disease Active Univers stone stone 1- ity of 00:00: [place] 00 Medical Branch Allergies, Adverse Reactions, Alerts Allergy Allergy Status Severity Reaction(s) Onset Inactive Treating Comm ents Source Name Type Date Date Clinician Latex Drug Active Swelling Univers Intolera 5-02 ity of nce 00:00: [place] 00 Medical Branch Macrolid Drug Active Swelling Univer s e Intolera 502 ity of Antibiot nce 00:00: [place] ics 00 Medical Branch Neospori Drug Active Swelling Univer s n Intolera 5-02 ity of (Neomyci nce 00:00: [place] n-Polymy 00 Medical x) Branch LATEX DRUG Active High Swelling Univers INGREDI 5-02 ity of 00:00: [place] 00 Medical Branch MACROLID Drug Active High Swelling Univer s E Class 5-02 ity of ANTIBIOT 00:00: [place] ICS 00 Medical Branch NEOSPORI DRUG Active High Swelling Univer s N 5-02 ity of (NEOMYCI 00:00: [place] N-POLYMY 00 Medical X) Branch Social History Social Habit Start Date Stop Date Quantity Comments Source Exposure to Not sure [facility] SARS-CoV-2 [place] Medical (event) Branch Alcohol intake 2021-02-05 2021-02-05 Current [facility] 00:00:00 00:00:00 non-drinker of [facility] alcohol Branch (finding) Tobacco use and 2016-11-28 2016-11-28 Never used Universit y of exposure 00:00:00 00:00:00 [facility] Sex Ass[birth year] At [birth year] Universit y of 00:00:00 00:00:00 [facility] Smoking Status Start Date Stop Date Source Never smoker [facility] Medical Branch Medications Ordered Filled Start Stop Current Ordering Indication Dosage Frequency Signature Comments Components Source Medication Medication Date Date Medication? Clinician (SIG) Name Name Cholecalcif 2020-07 Yes 1000U Take 1,000 Univers silvana, 0-12 Units by ity of Vitamin D3, 11:31: mouth. Claudine s (VITAMIN 30 Medical D3) 1,000 Branch unit capsule aspirin 81 2020-07 Yes 81mg Take 81 mg U nivers mg chewable 0-12 by mouth ity of tablet 11:31: daily. [address] Cholecalcif 2020-07 Yes 1000U Take 1,000 Univers silvana, 0-12 Units by ity of Vitamin D3, 11:31: mouth. Kya s (VITAMIN 30 Medical D3) 1,000 Branch unit capsule aspirin 81 2020-07 Yes 81mg Take 81 mg U nivers mg chewable 0-12 by mouth ity of tablet 11:31: daily. [address] Cholecalcif 2020-07 Yes 1000U Take 1,000 Univers silvana, 0-12 Units by ity of Vitamin D3, 11:31: mouth. Kya s (VITAMIN 30 Medical D3) 1,000 Branch unit capsule aspirin 81 2020-07 Yes 81mg Take 81 mg U nivers mg chewable 0-12 by mouth ity of tablet 11:31: daily. [address] losartan 50 2020-07 Yes 50mg Take 1 Univ ers mg tablet 0-12 tablet by ity o f 00:00: mouth [place] 00 daily. Medical Branch atorvastati 2020-07 Yes [id number] 40mg Take 1 Univers n 40 mg 0-12 tablet by ity of tablet 00:00: mouth [place] 00 daily. Medical Branch losartan 50 2020-07 Yes 50mg Take 1 Univ ers mg tablet 0-12 tablet by ity o f 00:00: mouth [place] 00 daily. Medical Branch atorvastati 2020-07 Yes [id number] 40mg Take 1 Univers n 40 mg 0-12 tablet by ity of tablet 00:00: mouth [place] 00 daily. [facility] Branch losartan 50 2020-07 Yes 50mg Take 1 Univ ers mg tablet 0-12 tablet by ity o f 00:00: mouth [place] 00 daily. [facility] Branch atorvastati 2020-07 Yes [id number] 40mg Take 1 Univers n 40 mg 0-12 tablet by ity of tablet 00:00: mouth [place] 00 daily. Medical Branch glipiZIDE Yes [id number] 5mg Take 1 U nivers XL 5 mg 24 8-17 tablet by ity of hr tablet 00:00: mouth 2 (two) Medical times Branch daily. glipiZIDE 0 Yes [id number] 5mg Take 1 U nivers XL 5 mg 24 8-17 tablet by ity of hr tablet 00:00: mouth 2 (two) Medical times Branch daily. glipiZIDE 2020-0 Yes [id number] 5mg Take 1 U nivers XL 5 mg 24 8-17 tablet by ity of hr tablet 00:00: mouth 2 (two) Medical times Branch daily. cetirizine Yes [id number] 10mg Take 1 Univers (ZYRTEC) 10 8-02 tablet by ity of mg tablet 00:00: mouth 00 daily. Medical Branch fluticasone Yes [id number] 1{spray Use 1 Univers propionate 8-02 } [place] in ity o f 50 00:00: each [place] mcg/actuati 00 nostril Medic al on nasal daily. Branch spray cetirizine Yes [id number] 10mg Take 1 Univers (ZYRTEC) 10 8-02 tablet by ity of mg tablet 00:00: mouth 00 daily. Medical Branch fluticasone Yes [id number] 1{spray Use 1 Univers propionate 8-02 } [place] in ity o f 50 00:00: each [place] mcg/actuati 00 nostril Medic al on nasal daily. Branch spray cetirizine Yes [id number] 10mg Take 1 Univers (ZYRTEC) 10 8-02 tablet by ity of mg tablet 00:00: mouth [place] 00 daily. Medical Branch fluticasone Yes [id number] 1{spray Use 1 Univers propionate 8-02 } [place] in ity o f 50 00:00: each [place] mcg/actuati 00 nostril Medic al on nasal daily. Branch spray benzonatate 0 Yes [id number] 200mg Take 2 Univers 100 mg 7-10 capsules ity of capsule 00:00: [place] mouth 2 [place] 00 (two) Medical times Branch daily as needed for Cough. guaiFENesin 0 Yes [id number] 400mg Take 1 Univers 400 mg 7-10 tablet by ity of tablet 00:00: mouth [place] 00 every 4 Medical (four) Branch hours as needed for Cough. azelastine Yes [id number] 1{spray Use 1 Univers 137 mcg 7-10 } [place] in ity of (0.1 %) 00:00: each [place] nasal spray 00 nostril 2 Med ical (two) Branch times daily. Use in each nostril as directed benzonatate 0 Yes [id number] 200mg Take 2 Univers 100 mg 7-10 capsules ity of capsule 00:00: [place] mouth 2 [place] 00 (two) Medical times Branch daily as needed for Cough. guaiFENesin Yes [id number] 400mg Take 1 Univers 400 mg 7-10 tablet by ity of tablet 00:00: mouth [place] 00 every 4 Medical (four) Branch hours as needed for Cough. azelastine Yes [id number] 1{spray Use 1 Univers 137 mcg 7-10 } [place] in ity of (0.1 %) 00:00: each [place] nasal spray 00 nostril 2 Med ical (two) Branch times daily. Use in each nostril as directed benzonatate 0 Yes [id number] 200mg Take 2 Univers 100 mg 7-10 capsules ity of capsule 00:00: [place] mouth 2 [place] 00 (two) Medical times Branch daily as needed for Cough. guaiFENesin Yes [id number] 400mg Take 1 Univers 400 mg 7-10 tablet by ity of tablet 00:00: mouth [place] 00 every 4 Medical (four) Branch hours as needed for Cough. azelastine 0 Yes [id number] 1{spray Use 1 Univers 137 mcg 7-10 } [place] in ity of (0.1 %) 00:00: each [place] nasal spray 00 nostril 2 Med ical (two) Branch times daily. Use in each nostril as directed losartan 50 2020-0 2020- No [id number] 50mg Take 1 Univers mg tablet 4-12 10-12 tablet by ity of 00:00: 00:00 mouth [place] 00 :00 daily. Medical Branch METFORMIN 2020-0 Yes [id number] 1000mg TAKE 2 Univers ER 500 mg 3-28 TABLETS BY ity of 24 hr 00:00: MOUTH 2 [place] tablet 00 (TWO) Medical TIMES Branch DAILY. METFORMIN Yes [id number] 1000mg TAKE 2 Univers ER 500 mg 3-28 TABLETS BY ity of 24 hr 00:00: MOUTH 2 [place] tablet 00 (TWO) Medical TIMES Branch DAILY. METFORMIN Yes [id number] 1000mg TAKE 2 Univers ER 500 mg 3-28 TABLETS BY ity of 24 hr 00:00: MOUTH 2 [place] tablet 00 (TWO) Medical TIMES Branch DAILY. mupirocin 2 2019-0 Yes [id number] Apply to Univers % cream 6-15 area(s) 3 ity of 00:00: (three) [place] 00 times Medical daily. Branch mupirocin 2 2019-0 Yes [id number] Apply to Univers % cream 6-15 area(s) 3 ity of 00:00: (three) [place] 00 times Medical daily. Branch mupirocin 2 2019-0 Yes [id number] Apply to Univers % cream 6-15 area(s) 3 ity of 00:00: (three) [place] 00 times Medical daily. Branch Vital Signs Vital Name Observation Time Observation Value Comments Source Systolic blood 2021-05-10 16:32:00 137 mm[Hg] [facility] Diastolic blood 2021-05-10 16:32:00 78 [facility]Hg[facility] 2021-05-10 16:32:00 84 /min [facility] Respiratory rate 2021-05-10 16:32:00 22 /min [facility] Body height 2021-05-10 16:32:00 160 cm [facility] Body weight 2021-05-10 16:32:00 80.377 kg [facility] BMI 2021-05-10 16:32:00 31.39 kg/m2 [facility] Oxygen saturation in 2021-05-10 16:32:00 97 /min [facility] Arterial blood by [facility] Pulse oximetry Branch Procedures Procedure Date / Time Performed Performing Clinician Sour e EXTERNAL PROVIDER 2021-06-02 05:01:00 Doctor Unassigned, No Univ [facility] RECORDS Name Medical Branch Encounters Start End Encounter Admission Attending Care Care Encounter Source Date/Time Date/Time Type Type Clinicians Facility Department ID 2021-05-28 Emergency [facility] [id number] [facility] Out[facility] Jose Miguel ROSALES [facility] [id number] Univers 13:40:00 13:40:00 MAK [id number] ity o f [facility] 2021-09-01 2021-09-01 Outpatient R PANDEY [facility] [id number] Univers 09:00:00 09:00:00 KATHRIN [id number] ity [facility] [place] [facility] 2021-09-01 2021-09-01 [id number] Univers 09:00:00 09:00:00 KATHRIN [facility] 2021-06-20 2021-06-20 [facility] [id number] Univers 10:00:00 10:00:00 KATHRIN [id number] [facility] 2021-06-14 2021-06-14 Outpatient R MITALI [facility] [id number] Univers 09:00:00 09:00:00 KATHRIN [id number] [facility] 2021-06-14 2021-06-14 Outpatient R MITALI [facility] [id number] Univers 09:00:00 09:00:00 KATHRIN [facility] 2021-06-02 2021-06-02 Orders Doctor ARGELIA [id number] Univers 00:00:00 00:00:00 Only Unassigned, BRO [id number] ity of [place] [facility] [id number] [place] [phone] [address] 2021-05-23 2021-05-23 Telephone Pandey, [facility] [id number] Univers 00:00:00 00:00:00 Kathrin Aguilar [id number] ity of [place] [id number] [place] Profess[place] [phone] [place] [address] 2021-05-10 2021-05-10 [facility] [id number] Univers 11:20:05 11:44:52 Visit Mak Lauren [id number] tremayne [facility] [id number] Claudine Brown [phone] [place] dical nal 059 [facility] 2021-05-10 2021-05-10 Outpatient R CONNIE, [facility] [id number] Univers 11:20:00 11:20:00 MAK [id number] ity o [facility] 2021-05-10 2021-05-10 Outpatient R CONNIE, [facility] [id number] Univers 11:20:00 11:20:00 MAK y o [facility] 2021-05-03 2021-05-03 Outpatient R CONNIE, [facility] [id number] Univers 11:00:00 11:00:00 MAK [id number] y o [facility] 2021-03-01 2021-03-01 Outpatient R [facility] [id number] Univers 10:15:00 10:15:00 [id number] [facility] 2021-03-01 2021-03-01 [facility] [id number] Univers 10:15:00 10:15:00 KATHRIN [facility] 2021-02-28 2021-02-28 [facility] [id number] Univers 15:00:00 15:00:00 KATHRIN [id number] [facility] 2021-02-28 2021-02-28 [facility] [id number] Univers 15:00:00 15:00:00 KATHRIN [facility] 2021-02-05 2021-02-05 Outpatient R [facility] [id number] Univers 13:20:00 13:20:00 [id number] [facility] 2021-02-05 2021-02-05 Outpatient R NOA, [facility] [id number] Univers 13:20:00 13:20:00 OMAYEMI [facility] 2021-01-29 2021-01-29 Outpatient R [facility] [id number] Univers 17:40:00 17:40:00 [id number] [facility] 2021-01-29 2021-01-29 Outpatient R YADIRA, [facility] [id number] Univers 17:40:00 17:40:00 ALEX [facility] 2020-11-08 2020-11-08 Refill Connie, [facility] [id number] 00:00:00 00:00:00 Mak Aguilar [id number] [place] [id number] Professio [phone] nal 059 [facility] 2020-11-02 2020-11-02 Relief Salesperson 2, Adc Lab [facility] [id number] 13:24:05 13:39:05 Visit Lauren [id number] [place] [id number] Professio [phone] nal 353 [facility] 2020-11-02 2020-11-02 Office [facility] [id number] [id number] 11:28:22 11:49:50 Visit Mak Aguilar [id number] [place] [id number] Professio [phone] nal 059 [facility] 2020-11-02 2020-11-02 Outpatient R CONNIE, [facility] [id number] Univers 11:20:00 11:20:00 MAK [id number] ity o [facility] 2020-11-02 2020-11-02 Outpatient R CONNIE, [facility] [id number] Univers 11:20:00 11:20:00 MAK simentaly o [facility] 2020-09-21 2020-09-21 Outpatient R CONNIE, [facility] [id number] Univers 14:40:00 14:40:00 MAK [id number] ity o [facility] 2020-09-21 2020-09-21 Outpatient R CONNIE, [facility] [id number] Univers 14:40:00 14:40:00 AMK ity o f [facility] 2020-08-19 2020-08-19 Outpatient R [facility] [id number] Univers 08:40:00 08:40:00 [id number] [facility] 2020-08-19 2020-08-19 Outpatient R [facility] [id number] Univers 08:40:00 08:40:00 [facility] 2020-04-18 2020-04-18 Outpatient R [facility] [id number] Univers 13:00:00 13:00:00 [facility] 2020-04-18 2020-04-18 [facility] [id number] Univers 13:00:00 13:00:00 KEV [facility] 2020-02-13 2020-02-13 Outpatient R [facility] [id number] Univers 13:15:00 13:15:00 [id number] [facility] 2020-02-13 2020-02-13 [facility] [id number] Univers 13:15:00 13:15:00 KATHRIN [facility] Results This patient has no known results.
[2021-07-26 19:59] LABS: SARS-COV-2 RT PCR POSITIVE (NEGATIVE)
--- NOTE | 2021-07-26 20:11 | ER ---
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 Coronavirus screen: Vaccine status: Patient reports being unvaccinated. Client denies travel out of the [place] in the last 14 days. fatigue, fever, headache, Client presents with at least one sign or symptom that may indicate coronavirus-19. Standard/surgical mask placed on the client. Ebola Screen: Patient denies travel to an Ebola-affected area in the 21 days before illness onset. Initial Sepsis Screen: Does the patient meet any 2 criteria? No. Patient's initial sepsis screen is negative. Does the patient have a suspected source of infection?. Risk Assessment: Do you want to hurt yourself or someone else? Patient reports no desire to harm self or others. Onset of symptoms was July 26, 2021. 18:02 Method Of Arrival: Ambulatory ll1 18:02 Acuity: OVIDIO 4 ll1 Historical: - Allergies: 18:02 Latex, Natural Rubber; ll1 18:02 mycins; ll1 - PMHx: 18:02 Diabetes - NIDDM; Diverticulitis; Hypercholesterolemia; Hypertensive disorder; Kidney ll1 stones; Ovarian cyst; - PSHx: 18:02 heart cath; ll1 - Immunization history:: Client reports having NOT received the Covid vaccine. Flu vaccine status is unknown. - Social history:: Smoking status: Patient denies any tobacco usage or history of. Vital Signs: 18:02 BP 151 / 86; Pulse 94; Resp 18; Temp 98.6; Pulse Ox 99% ; Pain 6/10; ll1 ED Course: 16:36 Patient arrived in ED. mr 18:02 Arm band placed on. ll1 18:05 Triage completed. ll1 18:06 Rosanna Tate FNP-C [facility] kb 18:06 Facundo Rawls MD is Attending Physician. kb Administered Medications: No medications were administered Outcome: 20:10 Discharge ordered by . estefanía 20:14 Patient left the ED. kb Signatures: Rosanna Tate, PATI-C M[employer] OPERATIONS MANAGER-Elizabeth Douglas mr Nikky Muir, RN RN ll1
--- NOTE | 2021-07-26 20:11 | EDPHYS ---
Physician Documentation [facility] Name: Adilson Patel Age: 51 yrs Sex: Female : 1970 Arrival Date: 07/26/2021 Time: 16:36 Bed Waiting Private MD: ED Physician Facundo Rawls HPI: 07/26 22:12 This 51 yrs old Female presents to ER via Ambulatory with complaints of Flu Symptoms. kb 22:12 The patient or guardian reports flu symptoms, low-grade fever, myalgias. Onset: The kb symptoms/episode began/occurred at 16:00. Severity of symptoms: At their worst the symptoms were moderate, in the emergency department the symptoms are unchanged. Modifying factors: The symptoms are alleviated by nothing, the symptoms are aggravated by nothing. Associated signs and symptoms: Pertinent positives: fever, Pertinent negatives: chest pain, diarrhea, ear ache, nausea, rhinorrhea, sore throat, vomiting. The patient has not experienced similar symptoms in the past. The patient has not recently seen a physician. Pt reports fever, bodyaches and slight congestion since 1600 today. Concerned she has covid. Historical: - Allergies: 18:02 Latex, Natural Rubber; ll1 18:02 mycins; ll1 - PMHx: 18:02 Diabetes - NIDDM; Diverticulitis; Hypercholesterolemia; Hypertensive disorder; Kidney ll1 stones; Ovarian cyst; - PSHx: 18:02 heart cath; ll1 - Immunization history:: Client reports having NOT received the Covid vaccine. Flu vaccine status is unknown. - Social history:: Smoking status: Patient denies any tobacco usage or history of. ROS: 22:11 Respiratory: Negative for shortness of breath, cough, wheezing, and pleuritic chest kb pain. 22:11 Constitutional: Positive for body aches, fever. 22:11 ENT: Positive for sinus congestion. 22:11 All other systems are negative. Exam: 22:11 Constitutional: This is a well developed, well nourished patient who is awake, alert, kb and in no acute distress. Head/Face: Normocephalic, atraumatic. ENT: Moist Mucous membranes Cardiovascular: Regular rate and rhythm with a normal S1 and S2. No gallops, murmurs, or rubs. No pulse deficits. Respiratory: Respirations even and unlabored. No increased work of breathing. Talking in full sentences Skin: Warm, dry with normal turgor. Normal color. MS/ Extremity: Pulses equal, no cyanosis. Neurovascular intact. Full, normal range of motion. Neuro: Awake and alert, GCS 15, oriented to person, place, time, and situation. Moves all extremities. Normal gait. Psych: Awake, alert, with orientation to person, place and time. Behavior, mood, and affect are within normal limits. Vital Signs: 18:02 BP 151 / 86; Pulse 94; Resp 18; Temp 98.6; Pulse Ox 99% ; Pain 6/10; ll1 MDM: 18:06 Patient medically screened. kb 22:11 Data reviewed: vital signs, nurses notes. Data interpreted: Pulse oximetry: on room air kb is 99 %. Interpretation: normal. Counseling: I had a detailed discussion with the patient and/or guardian regarding: the historical points, exam findings, and any diagnostic results supporting the discharge/admit diagnosis, lab results, the need for outpatient follow up, a family practitioner, to return to the emergency department if symptoms worsen or persist or if there are any questions or concerns that arise at home. 07/26 17:41 Order name: COVID-19/FLU A+B (Document "Date of Onset" if Symptomatic); Complete Time: kb 20:10 Administered Medications: No medications were administered Disposition: 07/27 07:27 Co-signature as Attending Physician, Facundo Rawls MD I agree with the assessment and kdr plan of care. Disposition Summary: 07/26/21 20:10 Discharge Ordered Location: Home kb Condition: Stable kb Diagnosis - Coronavirus infection, unspecified kb Followup: kb - With: Emergency Department - When: As needed - Reason: Worsening of condition Followup: kb - With: Private Physician - When: 2 - 3 days - Reason: Recheck today's complaints, Continuance of care, Re-evaluation by your physician Discharge Instructions: - Discharge Summary Sheet kb - COVID-19 kb - COVID-19 Frequently Asked Questions kb Forms: - Medication Reconciliation Form kb - Thank You Letter kb - Antibiotic Education kb - Prescription Opioid Use kb Signatures: Dispatcher [employer] EDRosanna Williamson, JONATHANC PATI-Facundo Brantley MD MD kdr Lewis, Lynsay, RN RN ll1
[2021-07-26 20:34] VITALS: BP 151/86; TEMP 98.6; O2SAT 99
== END 2021-07-26 20:14 | disposition home or self-care (01) ==
LOC: ER 16:32
DX: U07.1 COVID-19 (principal); E11.9 Type 2 diabetes mellitus without complications; I10 Essential (primary) hypertension; Z91.040 Latex allergy status
CPT/HCPCS: 0240U; 99281

== ENCOUNTER 2022-07-08 17:07 | Emergency (ER) | payer OTHER ==
--- OUTSIDE RECORDS SUMMARY | 2022-07-08 17:11 | XMS REPORT | Continuity of Care Document ---
:[address] [facility] t Address [address] [place] [address] Care Team Providers Name Role Phone Kathrin Jasmine MD Primary Care Physician [phone] MAK ROSALES Attending Clinician Unavailable CHARLETTE BYRD Attending Clinician Unavailable SHARAN KRAMER Attending Clinician Unavailable KATHRIN JASMINE Attending Clinician Unavailable Kathrin Jasmine MD Attending Clinician [phone] Mak Rosales MD Attending Clinician Yari Luz RN Attending Clinician Unavailable DIRK JIMENEZ Attending Clinician Unavailable Dirk Khan Attending Clinician Winsome Lott LMSW Attending Clinician Doctor Unassigned, [place] Attending Clinician Unavailable 2, [facility] Attending Clinician Unavailable Jose Muniz MD Attending Clinician JOSE MUNIZ Attending Clinician Unavailable Liana Chowdhury MD Attending Clinician Kev Mariano Attending Clinician LIANA CHOWDHURY Attending Clinician Unavailable ANDREW MARTINEZ Attending Clinician Unavailable Andrew Martinez PA-C Attending Clinician Unknown, Attending Attending Clinician Unavailable Veronica Sotelo Attending Clinician [phone] Mark Gaston Attending Clinician GETACHEWMARK MALDONADO Attending Clinician Unavailable Provider, [facility] Attending Clinician Unavailable Alex May MD Attending Clinician ALEX MAY Attending Clinician Unavailable Ramesh Huffman DO Attending Clinician Anton KRUEGER, Abigail Ameena Attending Clinician Komal Ann Attending Clinician KEV CHA Attending Clinician Unavailable Pob, [facility] Main Attending Clinician Unavailable KATHRIN JASMINE Admitting Clinician Unavailable Payers Payer Name Policy Type Policy Number Effective Date Expiration Date [facility] [id number] 2017 CHOICE 00:00:00 Problems Condition Condition Condition Status Onset Resolution Last Treating Co mments Source Name Details Category Date Date Treatment Clinician Date CHRISTI on CHRISTI on Disease Active 2020-07 Univers CPAP CPAP 0-12 ity of 00:00: Medical Branch Cough Cough Disease Active Univers 8-03 ity of 00:00: Medical Branch Sinus Sinus Disease Active Univers congestion congestion 8 it y of 00:00: Medical Branch Vitamin D Vitamin D Disease Active Uni vers deficiency deficiency 03-21 it y of 00:00: 00 Medical Branch Dyslipidem Dyslipidem Disease Active U nivers ia ia 8 ity of 00:00: 00 Medical Branch Type 2 Type 2 Disease Active Univers diabetes diabetes 01-22 ity of mellitus mellitus 00:00: [place] without without 00 Medical complicati complicati Br anch on, on, without without long-term long-term current current use of use of insulin insulin Pain of Pain of Disease Active Univers both both 01-22 ity of shoulder shoulder 00:00: [place] joints joints 00 Medical Branch Pain of Pain of Disease Active Univers right hip right hip 01-22 ity of joint joint 00:00: [place] 00 Medical Branch Kidney Kidney Disease Active Univers stone stone - ity of 00:00: 00 Medical Branch Allergies, Adverse Reactions, Alerts Allergy Allergy Status Severity Reaction(s) Onset Inactive Treating Comm ents Source Name Type Date Date Clinician LATEX DRUG Active High Swelling Univers INGREDI 11-28 ity of 00:00: [place] 00 Medical Branch MACROLID Drug Active High Swelling Univer s E Class 11-28 ity of ANTIBIOT 00:00: [place] ICS 00 Medical Branch NEOSPORI DRUG Active High Swelling Univer s N 11-28 ity of (NEOMYCI 00:00: [place] N-POLYMY 00 Medical X) Branch Latex Drug Active Swelling Univers Intolera 11-28 ity of nce 00:00: [place] 00 Medical Branch Neospori Drug Active Swelling Univer s n Intolera 11-28 ity of (Neomyci nce 00:00: [place] n-Polymy 00 Medical x) Branch Macrolid Drug Active Swelling Univer s e Intolera 11-28 ity of Antibiot nce 00:00: [place] ics 00 [facility] Social History Social Habit Start Date Stop Date Quantity Comments Source Exposure to 2022-04-08 2022-04-18 Not sure [facility] SARS-CoV-2 00:00:00 14:21:00 [facility] (event) [place] Alcohol intake 2022-04-18 2022-04-18 Current University of 00:00:00 00:00:00 non-drinker of [facility] alcohol (finding) [place] Tobacco use and 2022-03-02 2022-03-02 Smokeless tobacco Un iversity of exposure 00:00:00 00:00:00 non-user [facility] Sex Assigned At [birth year] Universit y of 00:00:00 00:00:00 [facility] Smoking Status Start Date Stop Date Source Never smoked tobacco [facility] Medications Ordered Filled Start Stop Current Ordering Indication Dosage Frequency Signature Comments Components Source Medication Medication Date Date Medication? Clinician (SIG) Name Name Cholecalcif 2021-07 Yes 1000U Take 1,000 Univers silvana, 1-10 Units by ity of Vitamin D3, 10:34[place] (VITAMIN 24 Medical D3) 1,000 Branch unit capsule Cholecalcif 2021-07 Yes 1000U Take 1,000 Univers silvana, 1-10 Units by ity of Vitamin D3, 10:34: [place] (VITAMIN 24 Medical D3) 1,000 Branch unit capsule aspirin 81 2021-07 Yes 81mg Take 81 mg U nivers mg chewable 1-10 by mouth ity of tablet 10:34: daily. [address] aspirin 81 2021-07 Yes 81mg Take 81 mg U nivers mg chewable 1-10 by mouth ity of tablet 10:34: daily. [address] acetylcyste 2021-07 Yes Take by Uni vers ine (NAC 1-10 mouth. ity of ORAL) 10:34: [place] 15 [facility] acetylcyste 2021-07 Yes Take by Uni vers ine (NAC 1-10 mouth. ity of ORAL) 10:34: [address] Branch ZINC ORAL 2021-07 Yes 50mg Take 50 mg Un kath 1-10 by mouth. ity of 10:34: [address] Branch ZINC ORAL 2021-07 Yes 50mg Take 50 mg Un kath 1-10 by mouth. ity of 10:34: [address] Branch vitamin C 2021-07 Yes 1000mg Take 1,000 Univers with jazmin 1-10 mg by ity of hips 10:34: mouth in [place] (VITAMIN C) 12 the Medical 1,000 mg morning. Branch tablet vitamin C 2021-07 Yes 1000mg Take 1,000 Univers with jazmin 1-10 mg by ity of hips 10:34: mouth in [place] (VITAMIN C) 12 the Medical 1,000 mg morning. Branch tablet loratadine 2021-07 Yes Take by Univ ers (CLARITIN 1-10 mouth. ity of ORAL) 10:34: [place] [facility] Branch loratadine 2021-07 Yes Take by Univ ers (CLARITIN 1-10 mouth. ity of ORAL) 10:34: [place] Medical Branch cyanocobala 2021-[address] Unive rs min, 1-10 under the ity of vitamin 10:34: tongue. [place] Medical (VITAMIN Branch B-12) 5,000 mcg Subl cyanocobala 2021-[address] Unive rs min, 1-10 under the ity of vitamin 10:34: tongue. Medical (VITAMIN Branch B-12) 5,000 mcg Subl glipiZIDE 2021-07 Yes [id number] 10mg Take 1 U nivers XL 10 mg 24 1-10 tablet by ity of hr tablet 00:00: mouth in [facility] s 00 the Medical morning Branch and 1 tablet in the evening. glipiZIDE 2021-07 Yes [id number] 10mg Take 1 U nivers XL 10 mg 24 1-10 tablet by ity of hr tablet 00:00: mouth in [facility] s 00 the Medical morning Branch and 1 tablet in the evening. losartan 50 2021-07 Yes [id number] 50mg Take 1 Univers mg tablet 0-11 tablet by ity o f 00:00: mouth in [place] 00 the Medical morning. Branch losartan 50 2021-07 Yes [id number] 50mg Take 1 Univers mg tablet 0-11 tablet by ity o f 00:00: mouth in [place] 00 the Medical morning. Branch losartan 50 2021-07 Yes [id number] 50mg Take 1 Univers mg tablet 0-11 tablet by ity o f 00:00: mouth in [place] the Medical morning. Branch cyanocobala Yes Place Unive rs min, 8-04 under the ity of vitamin 10:34: tongue. [facility] Medical (VITAMIN Branch B-12) 5,000 mcg Subl ZINC ORAL 0 Yes 50mg Take 50 mg Un kath 8-04 by mouth. ity of 10:34: [place] [address] Medical Branch loratadine Yes Take by Univ ers (CLARITIN 8-04 mouth. ity of ORAL) 10:34: [place] [address] Medical Branch vitamin C 0 Yes 1000mg Take 1,000 Univers with jazmin 8-04 mg by ity of hips 10:34: mouth in [place] (VITAMIN C) 12 the Medical 1,000 mg morning. Branch tablet cyanocobala Yes Place Unive rs min, 8-04 under the ity of vitamin 10:34: tongue. [place] Medical (VITAMIN Branch B-12) 5,000 mcg Subl ZINC ORAL 2021-0 Yes 50mg Take 50 mg Un kath 8-04 by mouth. ity of 10:34: [place] [address] Medical Branch loratadine 0 Yes Take by Univ ers (CLARITIN 8-04 mouth. ity of ORAL) 10:34: [place] [address] Medical Branch vitamin C 0 Yes 1000mg Take 1,000 Univers with jazmin 8-04 mg by ity of hips 10:34: mouth in [place] (VITAMIN C) 12 the Medical 1,000 mg morning. Branch tablet cyanocobala 2022-[address] Unive rs min, 8-04 under the ity of vitamin 10:34: tongue. [place] Medical (VITAMIN Branch B-12) 5,000 mcg Subl ZINC ORAL 2022-0 Yes 50mg Take 50 mg Un kath 8-04 by mouth. ity of 10:34: [place] [address] Medical Branch loratadine 2021-0 Yes Take by Univ ers (CLARITIN 8-04 mouth. ity of ORAL) 10:34: [place] [address] Medical Branch vitamin C 2-0 Yes 1000mg Take 1,000 Univers with jazmin 8-04 mg by ity of hips 10:34: mouth in [place] (VITAMIN C) 12 the Medical 1,000 mg morning. Branch tablet cyanocobala 2022-[address] Unive rs min, 8-04 under the ity of vitamin 10:34: tongue. [place] Medical (VITAMIN Branch B-12) 5,000 mcg Subl ZINC ORAL 2-0 Yes 50mg Take 50 mg Un kath 8-04 by mouth. ity of 10:34: [place] [address] Medical Branch loratadine 2021-0 Yes Take by Univ ers (CLARITIN 8-04 mouth. ity of ORAL) 10:34: [place] [address] Medical Branch vitamin C 2-0 Yes 1000mg Take 1,000 Univers with jazmin 8-04 mg by ity of hips 10:34: mouth in [place] (VITAMIN C) 12 the Medical 1,000 mg morning. Branch tablet cyanocobala 2-[address] Unive rs min, 8-04 under the ity of vitamin 10:34: tongue. [place] Medical (VITAMIN Branch B-12) 5,000 mcg Subl ZINC ORAL 2-0 Yes 50mg Take 50 mg Un kath 8-04 by mouth. ity of 10:34: [place] [address] Medical Branch loratadine 2-0 Yes Take by Univ ers (CLARITIN 8-04 mouth. ity of ORAL) 10:34: [place] [address] Medical Branch vitamin C 2-0 Yes 1000mg Take 1,000 Univers with jazmin 8-04 mg by ity of hips 10:34: mouth in [place] (VITAMIN C) 12 the Medical 1,000 mg morning. Branch tablet Cholecalcif 2022-0 Yes 1000U Take 1,000 Univers silvana, 8-04 Units by ity of Vitamin D3, 10:33: [place] (VITAMIN 16 Medical D3) 1,000 Branch unit capsule Cholecalcif 2022-0 Yes 1000U Take 1,000 Univers silvana, 8-04 Units by ity of Vitamin D3, 10:33: [place] (VITAMIN 16 Medical D3) 1,000 Branch unit capsule Cholecalcif 2022-0 Yes 1000U Take 1,000 Univers silvana, 8-04 Units by ity of Vitamin D3, 10:33: [place] (VITAMIN 16 Medical D3) 1,000 Branch unit capsule Cholecalcif 2022-0 Yes 1000U Take 1,000 Univers silvana, 8-04 Units by ity of Vitamin D3, 10:33: [place] (VITAMIN 16 Medical D3) 1,000 Branch unit capsule Cholecalcif 2022-0 Yes 1000U Take 1,000 Univers silvana, 8-04 Units by ity of Vitamin D3, 10:33: [place]. [place] (VITAMIN 16 Medical D3) 1,000 Branch unit capsule aspirin 81 2022-0 Yes 81mg Take 81 mg U nivers mg chewable 8-04 by mouth ity of tablet 10:33: daily. [address] aspirin 81 2022-0 Yes 81mg Take 81 mg U nivers mg chewable 8-04 by mouth ity of tablet 10:33: daily. [address] aspirin 81 2022-0 Yes 81mg Take 81 mg U nivers mg chewable 8-04 by mouth ity of tablet 10:33: daily. [address] aspirin 81 2022-0 Yes 81mg Take 81 mg U nivers mg chewable 8-04 by mouth ity of tablet 10:33: daily. [address] aspirin 81 2022-0 Yes 81mg Take 81 mg U nivers mg chewable 8-04 by mouth ity of tablet 10:33: daily. [address] acetylcyste 2-0 Yes Take by Uni vers ine (NAC 8-04 mouth. ity of ORAL) 10:32: [address] acetylcyste 2-0 Yes Take by Uni vers ine (NAC 8-04 mouth. ity of ORAL) 10:32: [place] 19 Medical Branch acetylcyste 2021-0 Yes Take by Uni vers ine (NAC 8-04 mouth. ity of ORAL) 10:32: [place] [address] Medical Branch acetylcyste 2021-0 Yes Take by Uni vers ine (NAC 8-04 mouth. ity of ORAL) 10:32: [place] Medical Branch acetylcyste 2021-0 Yes Take by Uni vers ine (NAC 8-04 mouth. ity of ORAL) 10:32: Medical Branch glipiZIDE 2021-0 Yes [id number] 5mg Take 1 U nivers XL 5 mg 24 8-04 tablet by ity of hr tablet 00:00: [place] 00 the Medical morning Branch and 1 tablet in the evening. metformin 2021-0 Yes [id number] 1000mg Take 2 Univers ER 500 mg 8-04 tablets by ity of 24 hr 00:00: mouth in [place] tablet 00 the Medical morning Branch and 2 tablets in the evening. atorvastati 2021-0 Yes [id number] 40mg Take 1 Univers n 40 mg 8-04 tablet by ity of tablet 00:00: mouth in [place] 00 the Medical morning. Branch glipiZIDE 2021-0 Yes [id number] 5mg Take 1 U nivers XL 5 mg 24 8-04 tablet by ity of hr tablet 00:00: [place] 00 the Medical morning Branch and 1 tablet in the evening. metformin 2021-0 Yes [id number] 1000mg Take 2 Univers ER 500 mg 8-04 tablets by ity of 24 hr 00:00: mouth in [place] tablet 00 the Medical morning Branch and 2 tablets in the evening. atorvastati 2021-0 Yes [id number] 40mg Take 1 Univers n 40 mg 8-04 tablet by ity of tablet 00:00: mouth in [place] 00 the Medical morning. Branch glipiZIDE 2021-0 Yes [id number] 5mg Take 1 U nivers XL 5 mg 24 8-04 tablet by ity of hr tablet 00:00: [place] 00 the Medical morning Branch and 1 tablet in the evening. metformin 2021-0 Yes [id number] 1000mg Take 2 Univers ER 500 mg 8-04 tablets by ity of 24 hr 00:00: mouth in [place] tablet 00 the Medical morning Branch and 2 tablets in the evening. atorvastati 2021-0 Yes [id number] 40mg Take 1 Univers n 40 mg 8-04 tablet by ity of tablet 00:00: mouth in [place] 00 the Medical morning. Branch glipiZIDE 2021-0 Yes [id number] 5mg Take 1 U nivers XL 5 mg 24 8-04 tablet by ity of hr tablet 00:00: [place] 00 the Medical morning Branch and 1 tablet in the evening. metformin 2021-0 Yes [id number] 1000mg Take 2 Univers ER 500 mg 8-04 tablets by ity of 24 hr 00:00: mouth in [place] tablet 00 the Medical morning Branch and 2 tablets in the evening. atorvastati 2021-0 Yes [id number] 40mg Take 1 Univers n 40 mg 8-04 tablet by ity of tablet 00:00: mouth in [place] 00 the Medical morning. Branch glipiZIDE 2021-0 Yes [id number] 5mg Take 1 U nivers XL 5 mg 24 8-04 tablet by ity of hr tablet 00:00: mouth [place] 00 the Medical morning Branch and 1 tablet in the evening. metformin 2021-0 Yes [id number] 1000mg Take 2 Univers ER 500 mg 8-04 tablets by ity of 24 hr 00:00: mouth in [place] tablet 00 the Medical morning Branch and 2 tablets in the evening. atorvastati 2021-0 Yes [id number] 40mg Take 1 Univers n 40 mg 8-04 tablet by ity of tablet 00:00: mouth in [place] 00 the Medical morning. Branch metformin 2021-0 Yes [id number] 1000mg Take 2 Univers ER 500 mg 8-04 tablets by ity of 24 hr 00:00: mouth in [place] tablet 00 the Medical morning Branch and 2 tablets in the evening. atorvastati 2021-0 Yes [id number] 40mg Take 1 Univers n 40 mg 8-04 tablet by ity of tablet 00:00: mouth in [place] 00 the Medical morning. Branch metformin 2021-0 Yes [id number] 1000mg Take 2 Univers ER 500 mg 8-04 tablets by ity of 24 hr 00:00: mouth in [place] tablet 00 the Medical morning Branch and 2 tablets in the evening. atorvastati 2021-0 Yes [id number] 40mg Take 1 Univers n 40 mg 8-04 tablet by ity of tablet 00:00: mouth in [place] 00 the Medical morning. Branch glipiZIDE 2021- No [id number] 5mg Take 1 Univers XL 5 mg 24 8- 11-10 tablet by ity of hr tablet 00:00: 00:00 mouth in [place] 00 :00 the Medical morning Branch and 1 tablet in the evening. glipiZIDE 2021- No [id number] 5mg Take 1 Univers XL 5 mg 24 8- 11-10 tablet by ity of hr tablet 00:00: 00:00 mouth in [place] 00 :00 the Medical morning Branch and 1 tablet in the evening. losartan 50 2020-07 Yes 50mg Take 1 [...] [place] 00 daily. Medical Branch losartan 50 2020-07- No 50mg Take 1 Uni vers mg tablet 0-12 10-11 tablet by ity of 00:00: 00:00 mouth [place] 00 :00 daily. Medical Branch losartan 50 2020-07- No 50mg Take 1 Uni vers mg tablet 0-12 10-11 tablet by ity of 00:00: 00:00 mouth [place] 00 :00 daily. Medical Branch fluticasone Yes [id number] 1{spray Use 1 Univers propionate 8-02 } [place] in ity o f 50 00:00: each [place] mcg/actuati 00 nostril Medic al on nasal daily. Branch spray fluticasone Yes [id number] 1{spray Use 1 Univers propionate 8-02 } [place] in ity o f 50 00:00: each [place] mcg/actuati 00 nostril Medic al on nasal daily. Branch spray fluticasone Yes [id number] 1{spray Use 1 Univers propionate 8-02 } [place] in ity o f 50 00:00: each [place] mcg/actuati 00 nostril Medic al on nasal daily. Branch spray fluticasone Yes [id number] 1{spray Use 1 Univers propionate 8-02 } [place] in ity o f 50 00:00: each [place] mcg/actuati 00 nostril Medic al on nasal daily. Branch spray fluticasone 2020-0 Yes [id number] 1{spray Use 1 Univers propionate 8-02 } [place] in ity o f 50 00:00: each [place] mcg/actuati 00 nostril Medic al on nasal daily. Branch spray fluticasone 2020-0 Yes [id number] 1{spray Use 1 Univers propionate 8-02 } [place] in ity o f 50 00:00: each [place] mcg/actuati 00 nostril Medic al on nasal daily. Branch spray fluticasone 2020-0 Yes [id number] 1{spray Use 1 Univers propionate 8-02 } [place] in ity o f 50 00:00: each [place] mcg/actuati 00 nostril Medic al on nasal daily. Branch spray mupirocin 2 2020-0 Yes [id number] Apply to Univers % cream 6-15 area(s) 3 ity of 00:00: (three) [place] 00 times Medical daily. Branch mupirocin 2 2020-0 Yes [id number] Apply to Univers % cream 6-15 area(s) 3 ity of 00:00: (three) [place] 00 times Medical daily. Branch mupirocin 2 2020-0 Yes [id number] Apply to Univers % cream 6-15 area(s) 3 ity of 00:00: (three) [place] 00 times Medical daily. Branch mupirocin 2 2020-0 Yes [id number] Apply to Univers % cream 6-15 area(s) 3 ity of 00:00: (three) [place] 00 times Medical daily. Branch mupirocin 2 2020-0 Yes [id number] Apply to Univers % cream 6-15 area(s) 3 ity of 00:00: (three) [place] 00 times Medical daily. Branch mupirocin 2 2020-0 Yes [id number] Apply to Univers % cream 6-15 area(s) 3 ity of 00:00: (three) [place] 00 times Medical daily. Branch mupirocin 2 2020-0 Yes [id number] Apply to Univers % cream 6-15 area(s) 3 ity of 00:00: (three) [place] 00 times Medical daily. Branch Vital Signs Vital Name Observation Time Observation Value Comments Source Systolic blood 2022-06-08 15:36:00 137 mm[Hg] Univer sity of pressure [place] [facility] Diastolic blood 2022-06-08 15:36:00 84 mm[Hg] Unive rsity of pressure [place] [facility] Heart rate 2022-06-08 15:36:00 89 /min Universi ty of [place] [facility] Respiratory rate 2022-06-08 15:36:00 18 /min Univ ersity of [place] [facility] Body weight 2022-06-08 15:36:00 76.749 kg Universi ty of [place] [facility] BMI 2022-06-08 15:36:00 29.97 kg/m2 Universi ty of [place] [facility] Oxygen saturation in 2022-06-08 15:36:00 96 /min University of Arterial blood by [place] [facility] Pulse oximetry Branch Systolic blood 2022-04-18 19:39:00 144 mm[Hg] Univer sity of pressure [place] [facility] Diastolic blood 2022-04-18 19:39:00 95 mm[Hg] Unive rsity of pressure [place] [facility] Heart rate 2022-04-18 19:38:00 96 /min Universi ty of [place] [facility] Body temperature 2022-04-18 19:38:00 36.89 Patricia Univ ersity of [place] [facility] Respiratory rate 2022-04-18 19:38:00 18 /min Univ ersity of [place] [facility] Body height 2022-04-18 19:38:00 160 cm Universi ty of [place] [facility] Body weight 2022-04-18 19:38:00 78.064 kg Universi ty of [place] [facility] BMI 2022-04-18 19:38:00 30.49 kg/m2 Universi ty of [place] [facility] Oxygen saturation in 2022-04-18 19:38:00 98 /min University of Arterial blood by [place] [facility] Pulse oximetry Branch Procedures Procedure Date / Time Performed Performing Clinician Sourc e POCT MOLECULAR STREP 2022-04-18 19:37:00 Dirk Jimenez ity of [place] [facility] [place] Encounters Start End Encounter Admission Attending Care Care Encounter Source Date/Time Date/Time Type Type Clinicians Facility Department ID 2021-05-28 Emergency [facility] [id number] Univers 18:31:18 ity [facility] 2023-02-06 2023-02-06 Outpatient R SHERWIN, [facility] [id number] Univers 10:00:00 10:00:00 JANINARADHA kapil o f [facility] 2023-02-06 2023-02-06 Outpatient R SHERWIN, [facility] [id number] Univers 10:00:00 10:00:00 JANINARADHA kapil o f [facility] 2022-09-26 2022-09-26 Outpatient R BRENDENRITESH, [facility] [id number] Univers 09:20:00 09:20:00 CHARLETTE tremayne [facility] 2022-06-27 2022-06-27 Outpatient R KRAMER, [facility] [id number] Univers 10:15:00 10:15:00 SHARAN [facility] 2022-06-08 2022-06-08 Outpatient R MITALI [facility] [id number] [facility] 09:40:00 10:55:51 KATHRIN dick [facility] 2022-06-08 2022-06-08 Office [facility] [id number] [facility] 09:40:00 10:55:51 Visit Kathrin MCKEON [id number] ity of [facility] [id number] PROF[place] [phone] Pa dical NAL [address] [facility] 2022-05-05 2022-05-05 [facility] 1.2.840.114 [id number] Univers 00:00:00 00:00:00 Mak MCKEON [id number] ity of [place] [id number] PROF[place] [phone] Pa dical NAL 0[address] [facility] 2022-05-04 2022-05-04 [facility] 1.2.840.114 [id number] Univers 00:00:00 00:00:00 Mak NESBITTTON [id number] ity of [facility] [id number] PROFESS[place] [phone] Pa dical NAL 0[address] [facility] 2022-04-192022-04-19 Letter ARGELIA Luz 1.2.840.114 [id number] Univers 00:00:00 00:00:00 (Out) Yari BRO [id number] it y of [facility] [id number] [place] [phone] [facility] 019 [place] 2022-04-18 2022-04-18 [facility] [id number] Univers 14:20:00 14:54:17 RANGA ity of [facility] 2022-04-18 2022-04-18 Urgent [facility] 1.2.840.114 [id number] Univers 14:20:00 14:40:00 Care [facility] [id number] it y of [place] [id number] [place] MANISHA?BLEA [phone] Pa dical KNEY 370 [place] MEDICAL OFFICE [facility] 2022-03-13 2022-03-13 Patient Oren [facility] [id number] [id number] Univers 00:00:00 00:00:00 Outreach Winsome MCKEON [id number] ity of [id number] [phone] Pa dical NAL [address] [facility] 2022-03-06 2022-03-06 Telephone Sherwin [facility] [id number] Univers 00:00:00 00:00:00 Mak MCKEON [id number] ity of [id number] [phone] Pa dical NAL 0[address] [facility] 2022-03-04 2022-03-04 Orders Doctor ARGELIA 1.2.840.114 [id number] Univers 00:00:00 00:00:00 Only Unassigned, BRO [id number] ity of [place] [facility] [id number] [place] [phone] [facility] 009 [place] 2022-03-02 2022-03-02 Office [facility] 1.2.840.114 [id number] Univers 09:40:00 11:06:59 Visit Kathrin Lucho MCKEON [id number] ity of [facility] [id number] [phone] Pa dical NAL [address] [facility] 2022-03-02 2022-03-02 Outpatient R MITALI [facility] [id number] Univers 09:40:00 11:06:59 KATHRIN ity [facility] 2022-03-02 2022-03-02 Outpatient R MITALI [facility] [id number] Univers 09:40:00 09:40:00 KATHRIN ity [facility] 2022-03-02 2022-03-02 Outpatient R MITALI [facility] [id number] Univers 09:40:00 09:40:00 KATHRIN ity [facility] 2022-03-02 2022-03-02 Outpatient R MITALI [facility] [id number] Univers 09:40:00 09:40:00 KATHRIN ity [facility] 2022-03-02 2022-03-02 Outpatient R MITALI [facility] [id number] Univers 09:40:00 09:40:00 [facility] 2022-03-02 [facility] 1.2.840.114 [id number] Univers 00:00:00 00:00:00 Mak MCKEON [id number] ity of [place] [place] [phone] Pa dical NAL 9 [facility] 2022-02-23 2022-02-23 Telephone [facility] 1.2.180.764 [id number] Univers 00:00:00 00:00:00 Mak ANGLEMARLENI 350.1.13.10 ity of [facility] 4.2.[place].2.[place] [phone] Pa dical NAL 059 [facility] 2022-02-21 2022-02-21 [facility] [id number] Univers 16:00:00 16:00:00 MAK dick o [facility] 2022-02-21 2022-02-21 Outpatient R SHERWIN [facility] [id number] Univers 14:44:32 15:12:00 MAK viera [facility] 2022-02-15 2022-02-15 Patient [facility] 1.2.840.114 [id number] Univers 00:00:00 00:00:00 Secure Msg Kathrin NESBITTTON 350.1.13.10 ity of [place].2.[place] [phone] Pa dical NAL 044 [facility] 2022-02-14 2022-02-14 [place] 2, Adc Lab [facility] 1.2.840.114 [id number] Univers 10:30:00 10:45:00 Visit Kathrin Jasmine 350.1. 13.10 ity of [place] 4.2.7.2.[place] [phone] Pa dical NAL 353 [facility] 2022-02-14 2022-02-14 [facility] 1040 [id number] Univers 10:30:00 10:30:00 KATHRIN dick [facility] 2022 2022 [facility] [id number] Univers 13:40:00 14:09:01 MAK viera [facility] 2022 2022 Office [facility] 1.2.840.114 [id number] Univers 13:40:00 14:09:01 Visit Mak LINDA 350.1.13.10 ity of [facility] 4.2.7.2.[place] [phone] Pa dical NAL 059 [facility] 2022 2022 Outpatient [facility] [id number] Univers 13:40:00 14:09:01 MAK holatremayne viera [facility] 2021-11-08 2021-11-08 Refill [facility] .2.840.114 [id number] Univers 00:00:00 00:00:00 Kathrin Lucho NESBITTTON 350.1.13.10 ity of [place] 4[place]2.7.2.[place] [phone] Pa dical NAL 231 [facility] 2021-11-07 2021-11-07 Ivette [facility]RE[facility] 1.2.840.114 [id number] Univers 00:00:00 00:00:00 Mak ADONISTON 350.1.13.10 it[place] of [place].2.[place] [phone] [facility] 059 [facility] 2021-11-01 2021-11-01 Office [facility] 1.2.840.114 [id number] Univers 09:45:00 10:00:00 Visit [facility] 350.1.13.10 it y [place].2.[place] [phone] [facility] [address] 2021-11-01 2021-11-01 [facility] [id number] Univers 09:45:00 09:45:00 HUMAIR ity [facility] 2021-10-20 2021-10-20 [facility] 1038 [id number] Univers 10:13:12 23:59:00 KATHRIN ity of [facility] 2021-10-20 2021-10-20 [facility] 1.2.840.114 [id number] Univers 10:13:12 23:59:00 Encounter Kathrin MCKEON 350.1.13.10 it[place] of [place].2.7.2.[place] [phone] [facility] [address] 2021-10-03 2021-10-03 Case [facility] 1.2.840.114 [id number] Univers 00:00:00 00:00:00 Management Kathrin NESBITTTON 350.1.13.10 it[place] of [place] 4.[place].2.[place] [phone] [facility] 231 [facility] 2021-09-15 2021-09-15 Outpatient R [facility] RAD [id number] Univers 13:00:00 13:00:00 KATHRIN dick [facility] 2021-09-01 2021-09-01 [place] 2, Adc Lab [facility] 1.2.840.114 [id number] Univers 13:00:00 13:15:00 Visit Kathrin Jasmine Lucho LINDA 350.1. 13.10 ity of [facility] 4.2.7.2.[place] [phone] Pa gloriagilda [facility] 353 [facility] 2021-09-01 2021-09-01 Outpatient R MITALI [facility] 1034 [id number] Univers 13:00:00 13:00:00 KATHRIN dick [facility] 2021-09-01 2021-09-01 Office [facility] 1.2.840.114 [id number] Univers 09:00:00 10:41:55 Visit Kathrin MCKEON 350.1.13.10 ity of [place] 4.2.7.2.[place] [phone] Pa [facility] 231 [facility] 2021-09-01 2021-09-01 Outpatient R MITALI [facility] [id number] Univers 09:00:00 10:41:55 KATHRIN [facility] 2021-09-01 2021-09-01 Orders Doctor STOUT 1.2.840.114 [id number] Univers 00:00:00 00:00:00 Only Unassigned, BRO 350.1.13.10 ity of [place] [facility] 4.2.7.2.686 [place] [phone] [address] 2021-08-18 2021-08-18 Liana Beckwith [facility] 1.2.840.114 [id number] Univers 10:40:00 11:00:00 Care [facility] 350.1.13.10 ity of [place] 4.2.7.2.686 [place] MANISHA?BLEA [phone] [facility] [address] MEDICAL OFFICE BU[facility]ING 2021-08-18 2021-08-18 Outpatient R TRENTON [facility] [id number] Univers 10:40:00 10:40:00 LIANA holatremayne [facility] 2021-08-07 2021-08-07 Outpatient R MICHELLE [facility] [id number] Univers 17:40:00 18:44:41 ANDREW dick [facility] 2021-08-07 2021-08-07 Urgent Andrew Martinez [facility] 1.2.840.11 [id number] Univers 17:40:00 18:00:00 Care Unknown, Attending HEALTH 350.1.13.10 ity of [place] 4.2.7.2.686 [place] MANISHA?BLEA [phone] [facility] [address] MEDICAL OFFICE [facility] 2021-08-05 2021-08-05 Refill [facility] 1.2.840.114 [id number] Univers 00:00:00 00:00:00 Kathrin MCKEON 350.1.13.10 ity of [place] 4.2.7.2.[place] [phone] Pa [facility] 231 [facility] 2021-06-14 2021-06-14 Outpatient [facility] [id number] Univers 09:00:00 09:00:00 KATRHIN dick [facility] 2021-06-02 2021-06-02 Orders Doctor ARGELIA 1.2.840.114 [id number] Univers 00:00:00 00:00:00 Only Unassigned, BRO 350.1.13.10 ity of [place] [facility] 4.2.7.2.686 [place] [phone] [address] 2021-05-23 2021-05-23 Telephone [facility] 1.2.840.114 [id number] Univers 00:00:00 00:00:00 Kathrin Mckeon 350.1.13.10 ity of [place] 4.2.7.2.[place] [phone] Pa [facility] 044 [facility] 2021-05-10 2021-05-10 Office [facility] 1.2.840.114 [id number] Univers 11:20:05 11:44:52 Visit Mak Mckeon 350.1.13.10 it[place] of [place] 4.2.7.2.686 [place] [phone] Pa dical nal 059 [facility] 2021-05-10 2021-05-10 Outpatient Jose Miguel SHERWIN [facility] [id number] Univers 11:20:00 11:20:00 MAK dick o f [facility] 2021-03-15 2021-03-15 Case [facility] 1.2.840.114 [id number] Univers 00:00:00 00:00:00 Management Kathrin Mckeon 350.1.13.10 it[place] of [place] 4[place].2.[place] [phone] [facility] 231 [facility] 2021-03-01 2021-03-01 Outpatient [facility] [id number] [id number] Univers 10:15:00 10:15:00 KATHRIN dick [facility] 2021-03-01 2021-03-01 [place] 2, Adc Lab [facility] 1.2.840.114 [id number] Univers 09:45:20 10:00:20 Visit Kathrin Jasmine 350.1. 13.10 it[place] of [place] 4[place]2.[place].2.[place] [phone] [facility] 353 [facility] 2021-02-28 2021-02-28 Telemedici [facility] 1.2.840.114 [id number] Univers 15:07:51 16:32:56 ne Visit Kathrin Mckeon 350.1.13.10 it[place] of [place] 4.2.7.2.686 [place] [phone] Pa [facility]st. [facility] 231 [facility] 2021-02-28 2021-02-28 Outpatient [facility] [id number] Univers 15:00:00 15:00:00 KATHRIN dick [facility] 2021-02-28 2021-02-28 Refill [facility] 1.2.840.114 [id number] Univers 00:00:00 00:00:00 Kathrin Mckeon 350.1.13.10 ity of [place] 4.2.7.2.686 [place] [phone] Pa dical nal [address] [facility] 2021-02-27 2021-02-27 Refill Jace [facility] 1.2.840.114 [id number] Univers 00:00:00 00:00:00 s, [facility] 350.1.13.10 ity of [place] 4.2.7.2.686 [place] Profess[place] [phone] Pa dical nal [address] One 2021-02-27 2021-02-27 Refill [place] [facility] 1.2.840.114 [id number] Univers 00:00:00 00:00:00 [facility] 350.1.13.10 it y of [place] 4.2.7.2.686 [place] Profess[place] [phone] [facility] nal [address] [place] Office [facility] One 2021-02-05 2021-02-05 Urgent Liana Chowdhury [facility] 1.2.840.114 [id number] Univers 13:16:32 13:36:32 Care [facility] 350.1.13.10 ity of [place] 4.2.7.2.686 [place] Profess[place] [phone] [facility] [address] [place] Office [facility] One 2021-02-05 2021-02-05 Outpatient R NOA [facility] [id number] Univers 13:20:00 13:20:00 [facility] ity of [facility] 2021-01-29 2021-01-29 Urgent Provider, [facility] 1.2.840.114 [id number] Univers 17:34:49 18:20:41 Care Alex May [facility] 350.1.13.10 ity of [place] 4.2.7.2.686 [place] Profess[place] [phone] Pa dicdc nal [address] 2021-01-29 2021-01-29 Outpatient R YADIRA [facility] [id number] Univers 17:40:00 17:40:00 ALEX ity of [facility] 2021-01-10 2021-01-10 Case Mitali, [facility] 1.2.840.114 [id number] Univers 00:00:00 00:00:00 Management Kathrin Yepez Linda 350.1.13.10 [place] of [place] 4[place].2.[place] [phone] [facility] 231 [facility] 2020-11-08 2020-11-08 Refill [facility] 1.2.840.114 [id number] 00:00:00 00:00:00 Janinariteshclara [place] 350.1.13.10 [place] 4.2.7.2.686 Professio [phone] [address] 2020-11-08 2020-11-08 Refill [facility] 1.2.840.114 [id number] Univers 00:00:00 00:00:00 Mak Mckeon 350.1.13.10 it[place] of [place] 4[place].2.[place] [phone] [facility] 059 [facility] 2020-11-02 2020-11-02 [place] 2, [facility] Lab [facility] 1.2.840.114 [id number] 13:24:05 13:39:05 Visit [place] 350.1.13.10 [place] 4.2.7.2.686 Professio [phone] [facility] 353 [facility] 2020-11-02 2020-11-02 [place] 2, Adc Lab [facility] 1.2.840.114 [id number] [facility] 13:24:05 13:39:05 Visit Sherwin Mak Mckeon 350.1.13.10 it[place] of [place] 4[place].2.[place] [phone] [facility] 353 [facility] 2020-11-02 2020-11-02 Office [facility] 1.2.840.114 [id number] 11:28:22 11:49:50 Visit Mak Mckeon 350.1.13.10 [place] 4.2.7.2.686 Professio [phone] nal 059 [facility] 2020-11-02 2020-11-02 Office [facility] 1.2.840.114 [id number] Univers 11:28:22 11:49:50 Visit Mak Mckeon 350.1.13.10 it[place] of [place] 4[place]2.7.2.[place] [phone] Pa dical nal 059 [facility] 2020-11-02 2020-11-02 Outpatient R [facility] [id number] Univers 11:20:00 11:20:00 MAK dick o f [facility] 2020-10-21 2020-10-21 Refill [facility] 1.2.840.114 [id number] Univers 00:00:00 00:00:00 Kathrin Mckeon 350.1.13.10 it[place] of [place] 4[place].2.[place] [phone] Pa dical nal 231 [facility] 2020-10-12 2020-10-12 Patient [facility] 1.2.840.114 [id number] Univers 00:00:00 00:00:00 Outreach Ramesh MCDANIEL 350.1.13.10 i ty of [facility] 4.2.7.2.686 [place] [phone] Pa dical [address] 2020-09-21 2020-09-21 Office [facility] 1.2.840.114 [id number] Univers 14:18:43 15:09:25 Visit Mak Mckeon 350.1.13.10 it[place] of [place] 4.2.7.2.686 [place] [phone] Pa dical nal 059 [facility] 2020-09-21 2020-09-21 Outpatient R [facility] [id number] Univers 14:40:00 14:40:00 JANINARITESHCLARA kapil o f [facility] 2020-09-21 2020-09-21 Orders Doctor STOUT 1.2.840.114 [id number] Univers 00:00:00 00:00:00 Only Unassigned, BRO 350.1.13.10 ity of [facility] 4.2.7.2.686 [place] as [phone] [facility] [address] 2020-08-19 2020-08-19 Emergency Cacreji, [facility] 1.2.440.620 [id number] Univers 09:44:00 15:00:00 Abigail [place] 350.1.13.10 ity of [place] 4.2.7.2.686 [place] [facility] [phone] [facility] [address] 2020-08-19 2020-08-19 Urgent Provider, [facility] 1.2.840.114 [id number] Univers 08:30:48 09:33:22 Care Komal Bradley [facility] 350.1.13.10 ity of [place] 4.2.7.2.686 [place] Profess[place] [phone] [address] Office Building One 2020-08-19 2020-08-19 Outpatient R [facility] [id number] Univers 08:40:00 08:40:00 ity [facility] 2020-04-25 2020-04-25 Chris [facility]adRE[facility] 1.2.112.162 [id number] Univers 00:00:00 00:00:00 [facility] 350.1.13.10 it y of [place] 4.2.7.2.686 [place] Profess[place] [phone] [address] Office Building [facility] 2020-04-18 2020-04-18 Urgent Provider, [facility] 1.2.840.114 [id number] Univers 12:58:11 13:18:11 Care Susan [facility] 350.1.13.10 ity of [place] 4.2.7.2.686 [place] Profess[place] [phone] Pa dic[address] Office Building [facility] 2020-04-18 2020-04-18 [facility] [id number] Univers 13:00:00 13:00:00 [facility] 2020-02-13 2020-02-13 Outpatient R MITALI [facility] 1027 [id number] Univers 13:15:00 13:15:00 KATHRIN ity [facility] 2020-02-13 2020-02-13 [place] Mark [facility] Main [facility] 1.2.8 40.114 [id number] Univers 12:49:54 13:04:54 Visit Kathrin Jasmine 350.1. 13.10 it[place] of [place] 4[place]2.7.2.[place] [phone] [facility] 353 [facility] 2020-02-13 2020-02-13 Orders Doctor ARGELIA 1.2.840.114 [id number] Univers 00:00:00 00:00:00 Only Unassigned, BRO 350.1.13.10 ity of [place] [facility] 4.2.7.2.686 [place] [phone] [address] 2020-02-12 2020-02-12 Case Mitali [facility] 1.2.840.114 [id number] Univers 00:00:00 00:00:00 Management Kathrin Mckeon 350.1.13.10 it[place] of [place].2.[place] [phone] [facility] 231 [facility] 2020-01-12 2020-01-12 Case Mitali [facility] 1.2.840.114 [id number] Univers 00:00:00 00:00:00 Management Kathrin Mckeon 350.1.13.10 it[place] of [place] 4[place]2.7.2.[place] [phone] [address] 2019-10-16 2019-10-16 Refill Jasmine [facility] 1.2.840.114 [id number] Univers 00:00:00 00:00:00 Kathrin Mckeon 350.1.13.10 it[place] of [place] 4[place]2.[place].2.[place] [phone] Pa dic[address] 2019-04-16 2019-04-16 Patient Mitali [facility] 1.2.840.114 [id number] Univers 00:00:00 00:00:00 Secure Msg Kathrin Mckeon 350.1.13.10 ity of [place] 4.2.7.2.686 Claudine lockett Kevin [phone] Pa dical [place] [address] [address] [facility] Results Test Description Test Time Test Comments Results Result Comments Source POCT MOLECULAR STREP 2022-04-18 19:45:04 Test Item Value Reference Range Interpretation Comme nts POCT Molecular Strep (test code = 23936-8) Negative Negative Lab Interpretation (test code = 02091-4) Normal [facility]
[2022-07-08 18:21] LABS: Urine Blood Negative (Negative); Urine Glucose Negative (Negative); Urine Protein Negative (Negative); Urine Specific Gravity 1.025 (1.005-1.030)
[2022-07-08 18:30] LABS: Urine Specific Gravity/Preg 1.025 (1.005-1.030)
[2022-07-08 18:40] LABS: Urine Mucus Slight /HPF (None Seen); Urine RBC <5 /HPF (None Seen)
[2022-07-08] MEDS ORDERED: dexAMETHasone 10 MG/ML VIAL ONE (18:40)
[2022-07-08] MEDS ORDERED: LIDOCAINE 4% PATCH ONE (18:40)
[2022-07-08] MEDS ORDERED: KETOROLAC 30 MG/ML INJ ONE (18:40)
[2022-07-08] MEDS ORDERED: MORPHINE 4 MG/ML SYR ONE (18:40)
--- NOTE | 2022-07-08 20:18 | RAD REPORT ---
EXAM DESCRIPTION: RAD - Lumbar Spine 3 Views - 07/08/2022 8:07 pm CLINICAL HISTORY: PAIN COMPARISON: None FINDINGS: No acute fracture. Grade 1 anterolisthesis of L4 on L5. Mild diffuse endplate spurring but no significant disc height loss. IMPRESSION: No acute osseous abnormality involving the lumbar spine.
--- NOTE | 2022-07-08 20:46 | EDPHYS ---
Physician Documentation [facility] Name: Adilson Patel Age: 52 yrs Sex: Female : 1970 Arrival Date: 07/08/2022 Time: 17:08 Bed 6 Private MD: ED Physician Reno Burnett HPI: 07/08 18:20 This 52 yrs old Female presents to ER via Ambulatory with complaints of Low Back Pain. cp 18:20 The patient presents with pain that is acute, with no known mechanism of injury. The cp symptoms are located in the low back. 18:20 The pain radiates to the posterior aspect of right upper leg and right inner thigh. cp 18:20 The problem was sustained from unknown cause. cp 18:20 Onset: The symptoms/episode began/occurred 1 week(s) ago. cp 18:20 Associated signs and symptoms: Pertinent positives: radiating tightness to abdomen, cp Pertinent negatives: constipation, dysuria, fever, incontinence, numbness, urinary retention, weakness. Severity of symptoms: in the emergency department the symptoms are unchanged, despite home interventions. 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 N/A - Post-menopause kb3 Historical: - Allergies: 18:04 Latex, Natural Rubber; kb3 18:04 mycins; kb3 - Home Meds: 18:04 metformin 1,000 mg Oral tab 1 tab 2 times per day [Active]; Vitamin D3 1,000 unit Oral kb3 tab daily [Active]; glipizide 10 mg Oral tab 1 tab 2 times per day [Active]; losartan 50 mg oral tab 1 tab once daily [Active]; - PMHx: 18:04 Diabetes - NIDDM; Diverticulitis; Hypercholesterolemia; Hypertensive disorder; Kidney kb3 stones; Ovarian cyst; Sciatica; - PSHx: 18:04 heart cath; kb3 - Immunization history:: Adult Immunizations up to date, Client reports having NOT received the Covid vaccine. Last tetanus immunization: unknown. - Social history:: Smoking status: Patient denies any tobacco usage or history of. ROS: 18:25 Constitutional: Negative for body aches, chills, fever, poor PO intake. cp 18:25 Eyes: Negative for injury, pain, redness, and discharge. cp 18:25 Neck: Negative for pain with movement, pain at rest, stiffness. 18:25 Cardiovascular: Negative for chest pain, edema, palpitations. 18:25 Respiratory: Negative for cough, shortness of breath, wheezing. 18:25 Abdomen/GI: Positive for nausea, radiating tightness, Negative for vomiting, diarrhea, constipation, bowel incontinence. 18:25 Back: Positive for pain at rest, pain with movement. 18:25 : Negative for urinary symptoms, burning with urination, difficulty urinating, bladder incontinence. 18:25 Neuro: Negative for dizziness, numbness, weakness. 18:25 All other systems are negative. Exam: 18:30 Constitutional: The patient appears in no acute distress, alert, awake, cp non-diaphoretic, non-toxic, well developed, well nourished, uncomfortable. 18:30 Head/Face: Normocephalic, atraumatic. cp 18:30 Eyes: Periorbital structures: appear normal, Conjunctiva: normal, no exudate, no injection, Sclera: no appreciated abnormality, Lids and lashes: appear normal, bilaterally. 18:30 ENT: External ear(s): are unremarkable, Nose: is normal, Mouth: Lips: moist, Oral mucosa: moist, Posterior pharynx: Airway: no evidence of obstruction, patent. 18:30 Neck: ROM/movement: is normal, is supple, without pain, no range of motions limitations. 18:30 Chest/axilla: Inspection: normal. 18:30 Cardiovascular: Rate: tachycardic, Rhythm: regular. 18:30 Respiratory: the patient does not display signs of respiratory distress, Respirations: normal, no use of accessory muscles, no retractions, labored breathing, is not present, Breath sounds: are clear throughout, no decreased breath sounds, no stridor, no wheezing. 18:30 Abdomen/GI: Inspection: abdomen appears normal, Bowel sounds: active, all quadrants, Palpation: abdomen is soft and non-tender, in all quadrants, rebound tenderness, is not appreciated, involuntary guarding, is not appreciated. 18:30 Back: pain, that is moderate, of the lumbar area, ROM is painful, with all movement. 18:30 Skin: no rash present. 18:30 Neuro: Orientation: to person, place \T\ time. Mentation: is normal, Motor: moves all fours, strength is normal, Sensation: is normal, Gait: is steady. Vital Signs: 18:01 BP 173 / 79; Pulse 100; Resp 20; Temp 97.5; Pulse Ox 100% ; Weight 76.66 kg; Height 5 kb3 ft. 3 in. (160.02 cm); Pain 9/10; 20:08 BP 130 / 71; Pulse 67; Resp 18; Pulse Ox 98% on R/A; kd3 20:50 BP 129 / 74; Pulse 67; Resp 18 S; Pulse Ox 97% on R/A; as6 18:01 Body Mass Index 29.94 (76.66 kg, 160.02 cm) kb3 MDM: 17:57 Patient medically screened. cp 19:00 Differential diagnosis: sciatica, Herniated disc cauda equina, spinal stenosis, bulging cp disc. 20:43 Data reviewed: vital signs, nurses notes, lab test result(s), radiologic studies, plain cp films. 20:45 Counseling: I had a detailed discussion with the patient and/or guardian regarding: the cp historical points, exam findings, and any diagnostic results supporting the discharge/admit diagnosis, lab results, radiology results, the need for outpatient follow up, a family practitioner, to return to the emergency department if symptoms worsen or persist or if there are any questions or concerns that arise at home. Response to treatment: the patient's symptoms have markedly improved after treatment, Pain and nausea markedly improved. Will discharge to home for continued monitoring. Patient instructed to return to ED worsening pain, bowel and/or bladder incontinence, persistent numbness. 07/08 18:12 Order name: Urine Microscopic Only; Complete Time: 18:41 07/08 20:44 Interpretation: Reviewed. 07/08 18:21 Order name: Urine Dipstick-Ancillary; Complete Time: 18:41 EDMS 07/08 18:41 Interpretation: Normal except: UKET Trace. 07/08 18:29 Order name: Urine --Ancillary (enter results); Complete Time: 18:41 eb 07/08 18:57 Order name: XRAY Lumbar Spine (3 Views); Complete Time: 20:44 07/08 20:44 Interpretation: Report reviewed. 07/08 18:12 Order name: Urine Dipstick-Ancillary (obtain specimen); Complete Time: 18:22 cp 07/08 18:12 Order name: Urine Test (obtain specimen); Complete Time: 18:23 cp Administered Medications: 18:45 Drug: Ketorolac 30 mg Route: IM; Site: right ventrogluteal; kb3 20:51 Follow up: Response: No adverse reaction as6 18:46 Drug: morphine 4 mg Route: IM; Site: left ventrogluteal; kb3 20:51 Follow up: Response: No adverse reaction as6 18:48 Drug: Decadron (dexamethasone) 10 mg Route: IM; Site: left ventrogluteal; kb3 20:51 Follow up: Response: No adverse reaction as6 18:50 Drug: Lidoderm Patch 5 % (700 mg/patch) 1 patches {Note: Middle lower back.} Route: kb3 Topical; Site: affected area; 20:51 Follow up: Response: No adverse reaction as6 Disposition Summary: 07/08/22 20:45 Discharge Ordered Location: Home cp Problem: new cp Symptoms: have improved cp Condition: Stable cp Diagnosis - Lumbago with sciatica, right side cp Followup: cp - With: Private Physician - When: 2 - 3 days - Reason: Recheck today's complaints Discharge Instructions: - Discharge Summary Sheet cp - Acute Back Pain, Adult cp - Back Exercises cp Forms: - Medication Reconciliation Form cp - Thank You Letter cp - Antibiotic Education cp - Prescription Opioid Use cp - Work release form as6 Prescriptions: - Lidoderm 5 % Topical adhesive patch,medicated - apply 1 patch by TOPICAL route once daily; 10 patch; Refills: 0, Product cp Selection Permitted - Medrol (Enzo) 4 mg Oral Tablets, Dose Pack - take 1 tablet by ORAL route as directed - follow package instructions; 1 cp packet; Refills: 0, Product Selection Permitted - methocarbamol 500 mg Oral Tablet - take 1 tablet by ORAL route every 8 hours As needed; 30 tablet; Refills: 0, cp Product Selection Permitted Signatures: Dispatcher [employer] EDMS Shad Barba PA PA cp Barbara Braswell RN RN kb3 Cedric Beyer RN as6 Corrections: (The following items were deleted from the chart) 07/09 20:00 18:50 This 52 yrs old Female presents to ER via Ambulatory with complaints of Low Back cp Pain. cp 20:53 07/08 18:25 Abdomen/GI: Positive for radiating tightness, Negative for vomiting, cp diarrhea, constipation, bowel incontinence, cp
--- NOTE | 2022-07-08 20:46 | ER ---
Nurse's Notes [facility] Name: Adilson Patel Age: 52 yrs Sex: Female : 1970 Arrival Date: 07/08/2022 Time: 17:08 Bed 6 Private MD: Diagnosis: Lumbago with sciatica, right side Presentation: 07/08 18:01 Chief complaint: Patient states: middle lower back pain that is tender to palpation, kb3 intermittently radiates down bilateral legs with pain and tingling x1 week. Pt reports radiation is into posterior right thigh today and is burning. Pt also reports bilateral lower abdominal tightness and nausea today. Coronavirus screen: Vaccine status: Patient reports having had a previously documented Covid positive illness. Client denies travel out of the [place] in the last 14 days. Ebola Screen: Patient negative for fever greater than or equal to 101.5 degrees Fahrenheit, and additional compatible Ebola Virus Disease symptoms Patient denies exposure to infectious person. Patient denies travel to an Ebola-affected area in the 21 days before illness onset. No symptoms or risks identified at this time. Initial Sepsis Screen: Does the patient meet any 2 criteria? No. Patient's initial sepsis screen is negative. Does the patient have a suspected source of infection? No. Patient's initial sepsis screen is negative. Risk Assessment: Do you want to hurt yourself or someone else? Patient reports no desire to harm self or others. Onset of symptoms was July 01, 2022. 18:01 Method Of Arrival: Ambulatory kb3 18:01 Acuity: OVIDIO 3 kb3 Triage Assessment: 18:04 General: Appears in no apparent distress. uncomfortable, Behavior is calm, cooperative. kb3 Pain: Complains of pain in lumbar area Pain radiates to right hamstring, posterior aspect of right knee, right calf, right Achilles, right heel, left hamstring, posterior aspect of left knee, left calf, left Achilles and left heel Pain currently is 9 out of 10 on a pain scale. Quality of pain is described as burning. 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:04 LMP N/A - Post-menopause kb3 Historical: - Allergies: 18:04 Latex, Natural Rubber; kb3 18:04 mycins; kb3 - Home Meds: 18:04 metformin 1,000 mg Oral tab 1 tab 2 times per day [Active]; Vitamin D3 1,000 unit Oral kb3 tab daily [Active]; glipizide 10 mg Oral tab 1 tab 2 times per day [Active]; losartan 50 mg oral tab 1 tab once daily [Active]; - PMHx: 18:04 Diabetes - NIDDM; Diverticulitis; Hypercholesterolemia; Hypertensive disorder; Kidney kb3 stones; Ovarian cyst; Sciatica; - PSHx: 18:04 heart cath; kb3 - Immunization history:: Adult Immunizations up to date, Client reports having NOT received the Covid vaccine. Last tetanus immunization: unknown. - Social history:: Smoking status: Patient denies any tobacco usage or history of. Screenin:10 Abuse screen: Denies threats or abuse. Denies injuries from another. Nutritional kb3 screening: No deficits noted. Tuberculosis screening: No symptoms or risk factors identified. Fall Risk None identified. Assessment: 18:10 General: See triage note. kb3 18:10 Reassessment: Patient appears in no apparent distress at this time. No changes from kb3 previously documented assessment. 20:09 Reassessment: Patient and/or family updated on plan of care and expected duration. Pain kd3 level reassessed. Patient is alert, oriented x 3, equal unlabored respirations, skin warm/dry/pink. Patient states symptoms have improved. General: Appears in no apparent distress. Behavior is calm, cooperative. Neuro: Level of Consciousness is awake, alert, obeys commands, Oriented to person, place, time, situation. Respiratory: Airway is patent Trachea midline Respiratory effort is even, unlabored, Respiratory pattern is regular, symmetrical. Musculoskeletal: Circulation, motion, and sensation intact. Vital Signs: 18:01 BP 173 / 79; Pulse 100; Resp 20; Temp 97.5; Pulse Ox 100% ; Weight 76.66 kg; Height 5 kb3 ft. 3 in. (160.02 cm); Pain 9/10; 20:08 BP 130 / 71; Pulse 67; Resp 18; Pulse Ox 98% on R/A; kd3 20:50 BP 129 / 74; Pulse 67; Resp 18 S; Pulse Ox 97% on R/A; as6 18:01 Body Mass Index 29.94 (76.66 kg, 160.02 cm) kb3 ED Course: 17:08 Patient arrived in ED. as 17:10 Shad Barba PA is PHCP. cp 17:10 Reno Burnett MD is Attending Physician. cp 18:01 Barbara Braswell, RN is Primary Nurse. kb3 18:04 Triage completed. kb3 18:04 Arm band placed on right wrist. Patient placed in an exam room, on a stretcher. kb3 18:10 Patient has correct armband on for positive identification. Bed in low position. Call kb3 light in reach. 18:10 No provider procedures requiring assistance completed. kb3 18:22 Urine Microscopic Only Sent. kb3 20:09 XRAY Lumbar Spine (3 Views) In Process Unspecified. EDMS 20:51 Patient did not have IV access during this emergency room visit. as6 Administered Medications: 18:45 Drug: Ketorolac 30 mg Route: IM; Site: right ventrogluteal; kb3 20:51 Follow up: Response: No adverse reaction as6 18:46 Drug: morphine 4 mg Route: IM; Site: left ventrogluteal; kb3 20:51 Follow up: Response: No adverse reaction as6 18:48 Drug: Decadron (dexamethasone) 10 mg Route: IM; Site: left ventrogluteal; kb3 20:51 Follow up: Response: No adverse reaction as6 18:50 Drug: Lidoderm Patch 5 % (700 mg/patch) 1 patches {Note: Middle lower back.} Route: kb3 Topical; Site: affected area; 20:51 Follow up: Response: No adverse reaction as6 Medication: 18:10 VIS not applicable for this client. kb3 Outcome: 20:45 Discharge ordered by MD. cp 20:51 Condition: stable as6 21:02 Discharged to home ambulatory, with significant other. as6 21:02 Discharge instructions given to patient, significant other, Instructed on discharge instructions, follow up and referral plans. medication usage, Demonstrated understanding of instructions, follow-up care, medications, Prescriptions given X 3. 21:02 Patient left the ED. as6 Signatures: Dispatcher [employer] EDWI Kelly Perdomo as Shad Barba PA PA cp Cedric Beyer, RN RN as6 Michelle Zepeda, GINA RN kd3 Barbara Braswell, RN RN kb3
[2022-07-08 23:55] VITALS: TEMP 97.5
[2022-07-08 23:57] VITALS: BP 129/74; O2SAT 97
== END 2022-07-08 21:02 | disposition home or self-care (01) ==
LOC: ER 17:07
DX: M54.41 Lumbago with sciatica, right side (principal); I10 Essential (primary) hypertension; E11.9 Type 2 diabetes mellitus without complications; Z91.040 Latex allergy status; Z91.048 Other nonmedicinal substance allergy status
CPT/HCPCS: 81025; 72100; 96372; 99284; J2001; J1100; 81003; 81015

== ENCOUNTER 2022-11-26 02:40 | Observation (INO) | payer OTHER ==
--- OUTSIDE RECORDS SUMMARY | 2022-11-26 02:47 | XMS REPORT | Continuity of Care Document ---
:1970 Author Organization [facility] t Address [address] [place] [address] [place] [id number] Care Team Providers Name Role Phone Charlette Hope MD Primary Care Physician MAK ROSALES Attending Clinician Unavailable CHARLETTE HOPE Attending Clinician Unavailable JOSE MUNIZ Attending Clinician Unavailable Charlette Hope MD Attending Clinician Mak Rosales MD Attending Clinician Doctor Unassigned, Twin Attending Clinician Unavailable 2, [facility] Attending Clinician Unavailable Dirk Khan Attending Clinician Unknown, Attending Attending Clinician Unavailable DIRK JIMENEZ Attending Clinician Unavailable Sheron TOLEDO Attending Clinician Unavailable Sheron Anthony Attending Clinician SHARAN KRAMER Attending Clinician Unavailable KATHRIN JASMINE Attending Clinician Unavailable Kathrin Jasmine MD Attending Clinician [phone] Yari Luz RN Attending Clinician Unavailable Winsome Lott LMSW Attending Clinician Jose Muniz MD Attending Clinician Liana Chowdhury MD Attending Clinician Kev Mariano Attending Clinician LIANA CHOWDHURY Attending Clinician Unavailable ANDREW MARTINEZ Attending Clinician Unavailable Andrew Martinez PA-C Attending Clinician Mirela MANAGER PLANNING, Veronica Attending Clinician [phone] Noa MANAGER PLANNING, Mark Attending Clinician MARK LATHAM Attending Clinician Unavailable Provider, [facility] Attending Clinician Unavailable Alex May MD Attending Clinician ALEX MAY Attending Clinician Unavailable Ramesh Huffman DO Attending Clinician Anton MANAGER PLANNING, Abigail Lindquist Attending Clinician Komal Ann Attending Clinician KEV CHA Attending Clinician Unavailable Pob, [facility] Main Attending Clinician Unavailable Sheron TOLEDO Admitting Clinician Unavailable KATHRIN JASMINE Admitting Clinician Unavailable Payers Payer Name Policy Type Policy Number Effective Date Expiration Date [facility] later [facility] [id number] 2017 CHOICE 00:00:00 Problems Condition Condition Condition Status Onset Resolution Last Treating Co mments Source Name Details Category Date Date Treatment Clinician Date Chronic Chronic Disease Active Univers bilateral bilateral 2-28 ity of low back low back 00:00: [place] pain with pain with 00 Medi pastor bilateral bilateral Bran ch sciatica sciatica Primary Primary Disease Active Univers hypertensi hypertensi 2-28 it y of on on 00:00: [facility] Chronic Chronic Disease Active Univers allergic allergic 2-28 ity of rhinitis rhinitis 00:00: [facility] Chronic Chronic Disease Active Univers midline midline 2-28 [place] posterior posterior [place] pain 00 Medi pastor Branch CHRISTI on CHRISTI on Disease Active 2020-07 Univers CPAP CPAP 0-12 ity of 00:00: [facility] Branch Cough Cough Disease Active Univers 8-03 ity of 00:00: [facility] Branch Sinus Sinus Disease Active Univers congestion congestion 8-03 it y of 00:00: [facility] Vitamin D Vitamin D Disease Active Uni vers deficiency deficiency 8- it y of 00:00: [place] [facility] Dyslipidem Dyslipidem Disease Active U nivers ia ia 8 ity of 00:00: [place] 00 Medical Branch Type 2 Type 2 [...] Kidney Kidney Disease Active Univers stone stone 07-30 ity of 00:00: [place] 00 Medical Branch Allergies, Adverse Reactions, Alerts Allergy Allergy Status Severity Reaction(s) Onset Inactive Treating Comm ents Source Name Type Date Date Clinician Macrolid Drug Active Swelling Univer s e Intolera 5 ity of Antibiot nce 00:00: [place] ics 00 Medical Branch LATEX DRUG Active High Swelling Univers INGREDI 5 ity of 00:00: [place] 00 Medical Branch MACROLID Drug Active High Swelling Univer s E Class 5 ity of ANTIBIOT 00:00: [place] ICS 00 Medical Branch NEOSPORI DRUG Active High Swelling Univer s N 5-02 ity of (NEOMYCI 00:00: [place] N-POLYMY 00 Medical X) Branch Latex Drug Active Swelling Univers Intolera 5-02 ity of nce 00:00: [place] 00 Medical Branch Neospori Drug Active Swelling Univer s n Intolera 5-02 ity of (Neomyci nce 00:00: [place] n-Polymy 00 Medical x) Branch Social History Social Habit Start Date Stop Date Quantity Comments Source Exposure to 2022-09-16 2022-09-26 Not sure [facility] SARS-CoV-2 00:00:00 09:48:00 [place] [facility] (event) Branch Alcohol intake 2022-09-26 2022-09-26 Current University of 00:00:00 00:00:00 non-drinker of [facility] alcohol (finding) Branch Tobacco use and 2022-03-02 2022-03-02 Smokeless tobacco Un iversity of exposure 00:00:00 00:00:00 non-user [facility] Sex Ass[birth year] At [birth year] Universit y of 00:00:00 00:00:00 [facility] Smoking Status Start Date Stop Date Source Never smoked tobacco [facility] Medications Ordered Filled Start Stop Current Ordering Indication Dosage Frequency Signature Comments Components Source Medication Medication Date Date Medication? Clinician (SIG) Name Name jody 0 Yes [id number] 40mg Take 1 Univers n 40 mg 4-28 tablet by ity of tablet 00:00: mouth in [place] 00 the Medical morning. Branch atorvastati 0 Yes [id number] 40mg Take 1 Univers n 40 mg 3-28 tablet by ity of tablet 00:00: mouth in [place] 00 the Medical morning. Branch atorvastati 2023- No [id number] 40mg Take 1 Univers n 40 mg 3-28 04-28 tablet by ity of tablet 00:00: 00:00 mouth in [place] 00 :00 the Medical morning. Branch fluticasone 0 Yes [id number] 1{spray Use 1 Univers propionate 3-05 } [place] in ity o f 50 00:00: each [place] mcg/actuati 00 nostril in Me dical on nasal the Branch spray morning. fluticasone 0 Yes [id number] 1{spray Use 1 Univers propionate 3-05 } [place] in ity o f 50 00:00: each [place] mcg/actuati 00 nostril in Me dical on nasal the Branch spray morning. fluticasone 2022-0 Yes [id number] 1{spray Use 1 Univers propionate 3-05 } [place] ity o f 50 00:00: each [place] mcg/actuati 00 nostril in Me dical on nasal the Branch spray morning. fluticasone 2022-0 Yes [id number] 1{spray Use 1 Univers propionate 3-05 } [place] in ity o f 50 00:00: each [place] mcg/actuati 00 nostril in Me dical on nasal the Branch spray morning. fluticasone 2022-0 Yes [id number] 1{spray Use 1 Univers propionate 3-05 } [place] in ity o f 50 00:00: each [place] mcg/actuati 00 nostril in Me dical on nasal the Branch spray morning. fluticasone 3-0 Yes [id number] 1{spray Use 1 Univers propionate 3-05 } [place] ity o f 50 00:00: each [place] mcg/actuati 00 nostril in Me dical on nasal the Branch spray morning. Cholecalcif 3-0 Yes 1000U Take 1 Uni vers silvana, 2-28 capsule by ity of Vitamin D3, 09:10: [place] 25 [place]cg 36 Medical (1,000 Branch unit) capsule aspirin 81 2022-0 Yes 81mg Take 1 Unive rs mg chewable 2-28 tablet by ity of tablet 09:10: mouth in [place] [address] the Medical morning. Branch acetylcyste 2022-0 Yes Take by Uni vers ine (NAC 2-28 mouth. ity of ORAL) 09:10: [address] Branch cyanocobala 2022-[address] Unive rs min, 2-28 under the ity of vitamin 09:10: tongue. [place] [address], ,[address] [place] [address] Subl Branch ZINC ORAL 2022-0 Yes 50mg Take 50 mg Un kath 2-28 by mouth. ity of 09:10: [address] Branch loratadine 2022-0 Yes Take by Univ ers (CLARITIN 2-28 mouth. ity of ORAL) 09:10: [address] vitamin C 2022-0 Yes 1000mg Take 1 Univ ers with jazmin 2-28 tablet by ity o f hips 1,000 09:10: mouth in [place] mg tablet 36 the Medical morning. Branch Cholecalcif 2022-0 Yes 1000U Take 1 Uni vers silvana, 2-28 capsule by ity of Vitamin D3, 09:10: [place]. [place] 25 [place]cg 36 Medical (1,000 Branch unit) capsule aspirin 81 2022-0 Yes 81mg Take 1 Unive rs mg chewable 2-28 tablet by ity of tablet 09:10: mouth in [place] [address] the Medical morning. Branch acetylcyste 2022-0 Yes Take by Uni vers ine (NAC 2-28 mouth. ity of ORAL) 09:10: [address] Branch cyanocobala 3-[address] Unive rs min, 2-28 under the ity of vitamin 09:10: tongue. [place] B-12, 5,000 36 Medical mcg Subl Branch ZINC ORAL 3-0 Yes 50mg Take 50 mg Un kath 2-28 by mouth. ity of 09:10: [place] [address] Medical Branch loratadine 3-0 Yes Take by Univ ers (CLARITIN 2-28 mouth. ity of ORAL) 09:10: [address] Branch vitamin C 3-0 Yes 1000mg Take 1 Univ ers with jazmin 2-28 tablet by ity o f hips ,000 09:10: mouth in [place] mg tablet 36 the Medical morning. Branch Cholecalcif 2023-0 Yes 1000U Take 1 Uni vers silvana, 2-28 capsule by ity of Vitamin D3, 09:10: [place] 25 [place]cg 36 Medical (1,000 Branch unit) capsule aspirin 81 3-0 Yes 81mg Take 1 Unive rs mg chewable 2-28 tablet by ity of tablet 09:10: mouth in [place] [address] the Medical morning. Branch acetylcyste 2022-0 Yes Take by Uni vers ine (NAC 2-28 mouth. ity of ORAL) 09:10: [address] Branch cyanocobala 2022-[address] Unive rs min, 2-28 under the ity of vitamin 09:10: tongue. [place] [address], ,000 36 Medical [facility] Subl Branch ZINC ORAL 3-0 Yes 50mg Take 50 mg Un kath 2-28 by mouth. ity of 09:10: [place] [address] Medical Branch loratadine 3-0 Yes Take by Univ ers (CLARITIN 2-28 mouth. ity of ORAL) 09:10: [address] Branch vitamin C 3-0 Yes 1000mg Take 1 Univ ers with jazmin 2-28 tablet by ity o f hips 000 09:10: mouth in [place] mg tablet 36 the Medical morning. Branch Cholecalcif 2023-0 Yes 1000U Take 1 Uni vers silvana, 2-28 capsule by ity of Vitamin D3, 09:10: [place]cg 36 Medical (1,000 Branch unit) capsule aspirin 81 3-0 Yes 81mg Take 1 Unive rs mg chewable 2-28 tablet by ity of tablet 09:10: mouth in [place] [address] the Medical morning. Branch acetylcyste 2023-0 Yes Take by Uni vers ine (NAC 2-28 mouth. ity of ORAL) 09:10: [address] Branch cyanocobala 3-[address] Unive rs min, 2-28 under the ity of vitamin 09:10: tongue. [facility], ,000 36 Medical mcg Subl Branch ZINC ORAL 3-0 Yes 50mg Take 50 mg Un kath 2-28 by mouth. ity of 09:10: [address] Branch loratadine 2022-0 Yes Take by Univ ers (CLARITIN 2-28 mouth. ity of ORAL) 09:10: [address] Branch vitamin C 3-0 Yes 1000mg Take 1 Univ ers with jazmin 2-28 tablet by ity o f hips 000 09:10: mouth in [place] mg tablet 36 the Medical morning. Branch Cholecalcif 2022-0 Yes 1000U Take 1 Uni vers silvana, 2-28 capsule by ity of Vitamin D3, 09:10: [place]. [place] 25 mcg 36 Medical (1,000 Branch unit) capsule aspirin 81 2022-0 Yes 81mg Take 1 Unive rs mg chewable 2-28 tablet by ity of tablet 09:10: mouth in [place] 36 the Medical morning. Branch acetylcyste 2022-0 Yes Take by Uni vers ine (NAC 2-28 mouth. ity of ORAL) 09:10: [address] Branch cyanocobala 2022-[address] Unive rs min, 2-28 under the ity of vitamin 09:10: tongue. [place] [address], , 36 Medical mcg Subl Branch ZINC ORAL 3-0 Yes 50mg Take 50 mg Un kath 2-28 by mouth. ity of 09:10: [address] Branch loratadine 3-0 Yes Take by Univ ers (CLARITIN 2-28 mouth. ity of ORAL) 09:10: [address] Branch vitamin C 3-0 Yes 1000mg Take 1 Univ ers with jazmin 2-28 tablet by ity o f hips 000 09:10: mouth in [place] mg tablet 36 the Medical morning. Branch Cholecalcif 2023-0 Yes 1000U Take 1 Uni vers silvana, 2-28 capsule by ity of Vitamin D3, 09:10: [place] 25 mcg 36 Medical (1,000 Branch unit) capsule aspirin 81 3-0 Yes 81mg Take 1 Unive rs mg chewable 2-28 tablet by ity of tablet 09:10: mouth in [place] [address] the Medical morning. Branch acetylcyste 3-0 Yes Take by Uni vers ine (NAC 2-28 mouth. ity of ORAL) 09:10: [place] [address] Medical Branch cyanocobala 3-[address] Unive rs min, 2-28 under the ity of vitamin 09:10: tongue. [place] B-12, 5,000 36 Medical mcg Subl Branch ZINC ORAL 3-0 Yes 50mg Take 50 mg Un kath 2-28 by mouth. ity of 09:10: [place] [address] Medical Branch loratadine 3-0 Yes Take by Univ ers (CLARITIN 2-28 mouth. ity of ORAL) 09:10: [place] [address] Medical Branch vitamin C 3-0 Yes 1000mg Take 1 Univ ers with jazmin 2-28 tablet by ity o f hips 1,000 09:10: mouth in [place] mg tablet 36 the Medical morning. Branch Cholecalcif 3-0 Yes 1000U Take 1 Uni vers silvana, 2-28 capsule by ity of Vitamin D3, 09:10: [place]. [place] 25 mcg Medical (1,000 Branch unit) capsule aspirin 81 3-0 Yes 81mg Take 1 Unive rs mg chewable 2-28 tablet by ity of tablet 09:10: mouth in [place] [address] the Medical morning. Branch acetylcyste 3-0 Yes Take by Uni vers ine (NAC 2-28 mouth. ity of ORAL) 09:10: [place] [address] Medical Branch cyanocobala 3-[address] Unive rs min, 2-28 under the ity of vitamin 09:10: tongue. [place] B-12, 5,000 36 Medical mcg Subl Branch ZINC ORAL 3-0 Yes 50mg Take 50 mg Un kath 2-28 by mouth. ity of 09:10: [place] [address] Medical Branch loratadine 3-0 Yes Take by Univ ers (CLARITIN 2-28 mouth. ity of ORAL) 09:10: [place] [address] Medical Branch vitamin C 2023-0 Yes 1000mg Take 1 Univ ers with jazmin 2-28 tablet by ity o f hips 1,000 09:10: mouth in [place] mg tablet 36 the Medical morning. Branch Cholecalcif 2023-0 Yes 1000U Take 1 Uni vers silvana, 2-28 capsule by ity of Vitamin D3, 09:10: [place]. [place] 25 [place]cg 36 Medical (1,000 Branch unit) capsule aspirin 81 3-0 Yes 81mg Take 1 Unive rs mg chewable 2-28 tablet by ity of tablet 09:10: mouth in [place] [address] the Medical morning. Branch acetylcyste 2023-0 Yes Take by Uni vers ine (NAC 2-28 mouth. ity of ORAL) 09:10: [place] [address] Medical Branch cyanocobala 2023-[address] Unive rs min, 2-28 under the ity of vitamin 09:10: tongue. [place] B-12, ,000 36 Medical mcg Subl Branch ZINC ORAL 3-0 Yes 50mg Take 50 mg Un kath 2-28 by mouth. ity of 09:10: [place] [address] Medical Branch loratadine 2022-0 Yes Take by Univ ers (CLARITIN 2-28 mouth. ity of ORAL) 09:10: [address] Branch vitamin C 3-0 Yes 1000mg Take 1 Univ ers with jazmin 2-28 tablet by ity o f hips 1,000 09:10: mouth in [place] mg tablet 36 the Medical morning. Branch Cholecalcif 2023-0 Yes 1000U Take 1 Uni vers silvana, 2-28 capsule by ity of Vitamin D3, 09:10: [place] 25 mcg 36 Medical (1,000 Branch unit) capsule aspirin 81 3-0 Yes 81mg Take 1 Unive rs mg chewable 2-28 tablet by ity of tablet 09:10: mouth in [place] [address] the Medical morning. Branch acetylcyste 3-0 Yes Take by Uni vers ine (NAC 2-28 mouth. ity of ORAL) 09:10: [place] [address] Medical Branch cyanocobala 3-[address] Unive rs min, 2-28 under the ity of vitamin 09:10: tongue. [place] B-12, 5,000 36 Medical mcg Subl Branch ZINC ORAL 3-0 Yes 50mg Take 50 mg Un kath 2-28 by mouth. ity of 09:10: [place] [address] Medical Branch loratadine 3-0 Yes Take by Univ ers (CLARITIN 2-28 mouth. ity of ORAL) 09:10: [address] Branch vitamin C 2023-0 Yes 1000mg Take 1 Univ ers with jazmin 2-28 tablet by ity o f hips 1,000 09:10: mouth in [place] mg tablet 36 the Medical morning. Branch Diclofenac 2022-0 Yes [id number] Apply to Univers Sodium 2-28 area(s) 4 ity of (VOLTAREN) 00:00: (four) [place] 1 % gel 00 times Medical daily. Branch Apply 4 g qid Lidocaine 5 2022-0 Yes [id number] Apply to Univers % cream 2-28 area(s) 2 ity of 00:00: (two) [place] 00 times Medical daily as Branch needed for Pain (scale 4-6). Apply 5g to affected areas BID PRN montelukast 2022-0 Yes [id number] 10mg Take 1 Univers 10 mg 2-28 tablet by ity of tablet 00:00: mouth at [place] 00 bedtime. Medical Branch Diclofenac 2022-0 Yes [id number] Apply to Univers Sodium 2-28 area(s) 4 ity of (VOLTAREN) 00:00: (four) [place] 1 % gel 00 times Medical daily. Branch Apply 4 g qid Lidocaine 5 2022-0 Yes [id number] Apply to Univers % cream 2-28 area(s) 2 ity of 00:00: (two) [place] 00 times Medical daily as Branch needed for Pain (scale 4-6). Apply 5g to affected areas BID PRN montelukast 2022-0 Yes [id number] 10mg Take 1 Univers 10 mg 2-28 tablet by ity of tablet 00:00: mouth at [place] 00 bedtime. Medical Branch Diclofenac 2022-0 Yes [id number] Apply to Univers Sodium 2-28 area(s) 4 ity of (VOLTAREN) 00:00: (four) [place] 1 % gel 00 times Medical daily. Branch Apply 4 g qid Lidocaine 5 2022-0 Yes [id number] Apply to Univers % cream 2-28 area(s) 2 ity of 00:00: (two) [place] 00 times Medical daily as Branch needed for Pain (scale 4-6). Apply 5g to affected areas BID PRN montelukast 2022-0 Yes [id number] 10mg Take 1 Univers 10 mg 2-28 tablet by ity of tablet 00:00: mouth at [place] 00 bedtime. Medical Branch Diclofenac 2022-0 Yes [id number] Apply to Univers Sodium 2-28 area(s) 4 ity of (VOLTAREN) 00:00: (four) [place] 1 % gel 00 times Medical daily. Branch Apply 4 g qid Lidocaine 5 2022-0 Yes [id number] Apply to Univers % cream 2-28 area(s) 2 ity of 00:00: (two) [place] 00 times Medical daily as Branch needed for Pain (scale 4-6). Apply 5g to affected areas BID PRN montelukast 3-0 Yes [id number] 10mg Take 1 Univers 10 mg 2-28 tablet by ity of tablet 00:00: mouth at [place] 00 bedtime. Medical Branch Diclofenac 2022-0 Yes [id number] Apply to Univers Sodium 2-28 area(s) 4 ity of (VOLTAREN) 00:00: (four) [place] 1 % gel 00 times Medical daily. Branch Apply 4 g qid Lidocaine 5 2022-0 Yes [id number] Apply to Univers % cream 2-28 area(s) 2 ity of 00:00: (two) [place] 00 times Medical daily as Branch needed for Pain (scale 4-6). Apply 5g to affected areas BID PRN montelukast 3-0 Yes [id number] 10mg Take 1 Univers 10 mg 2-28 tablet by ity of tablet 00:00: mouth at [place] 00 bedtime. Medical Branch Diclofenac 2022-0 Yes [id number] Apply to Univers Sodium 2-28 area(s) 4 ity of (VOLTAREN) 00:00: (four) [place] 1 % gel 00 times Medical daily. Branch Apply 4 g qid Lidocaine 5 2022-0 Yes [id number] Apply to Univers % cream 2-28 area(s) 2 ity of 00:00: (two) [place] 00 times Medical daily as Branch needed for Pain (scale 4-6). Apply 5g to affected areas BID PRN montelukast 3-0 Yes [id number] 10mg Take 1 Univers 10 mg 2-28 tablet by ity of tablet 00:00: mouth at [place] 00 bedtime. Medical Branch Diclofenac 3-0 Yes [id number] Apply to Univers Sodium 2-28 area(s) 4 ity of (VOLTAREN) 00:00: (four) [place] 1 % gel 00 times Medical daily. Branch Apply 4 g qid Lidocaine 5 2023-0 Yes [id number] Apply to Univers % cream 2-28 area(s) 2 ity of 00:00: (two) [place] 00 times Medical daily as Branch needed for Pain (scale 4-6). Apply 5g to affected areas BID PRN montelukast 3-0 Yes [id number] 10mg Take 1 Univers 10 mg 2-28 tablet by ity of tablet 00:00: mouth at [place] 00 bedtime. Medical Branch Diclofenac 2022-0 Yes [id number] Apply to Univers Sodium 2-28 area(s) 4 ity of (VOLTAREN) 00:00: (four) [place] 1 % gel 00 times Medical daily. Branch Apply 4 g qid Lidocaine 5 2022-0 Yes [id number] Apply to Univers % cream 2-28 area(s) 2 ity of 00:00: (two) [place] 00 times Medical daily as Branch needed for Pain (scale 4-6). Apply 5g to affected areas BID PRN montelukast 2022-0 Yes [id number] 10mg Take 1 Univers 10 mg 2-28 tablet by ity of tablet 00:00: mouth at [place] 00 bedtime. Medical Branch Diclofenac 2022-0 Yes [id number] Apply to Univers Sodium 2-28 area(s) 4 ity of (VOLTAREN) 00:00: (four) [place] 1 % gel 00 times Medical daily. Branch Apply 4 g qid Lidocaine 5 2022-0 Yes [id number] Apply to Univers % cream 2-28 area(s) 2 ity of 00:00: (two) [place] 00 times Medical daily as Branch needed for Pain (scale 4-6). Apply 5g to affected areas BID PRN montelukast 3-0 Yes [id number] 10mg Take 1 Univers 10 mg 2-28 tablet by ity of tablet 00:00: mouth at [place] 00 bedtime. Medical Branch methylPREDN 3-0 Yes [id number] Take by Univers ISolone 2-15 mouth ity of (MEDROL, 00:00: SEE-INSTRU [place],) 4 mg 00 CTIONS. Medica l tablets follow Branch package directions methylPREDN 2023-0 Yes [id number] Take by Univers ISolone 2-15 mouth ity of (MEDROL, 00:00: SEE-INSTRU [place],) 4 mg 00 CTIONS. Medica l tablets follow Branch package directions methylPREDN 2022-0 Yes [id number] Take by Univers ISolone 09-13 mouth ity of (MEDROL, 00:00: SEE-INSTRU [place],) 4 mg 00 CTIONS. Medica l tablets follow Branch package directions methylPREDN 2022- No [id number] Take by Univers ISolone 09-13 mouth ity of (MEDROL, 00:00: 00:00 [place] 4 mg 00 :00 CTIONS. Medica l tablets follow Branch package directions methylPREDN 0 2022- No [id number] Take by Univers ISolone 09-13 mouth ity of (MEDROL, 00:00: 00:00 [place] 4 mg 00 :00 CTIONS. Medica l tablets follow Branch package directions promethazin 2022- Yes [id number] 5mL Take 5 mL Univers e-dextromet 09-13 by mouth 4 i ty of horphan 00:00: 05:59 (four) [place] 6.25-15 00 :00 times Medical mg/5 mL daily for Branch syrup 10 days. promethazin 2022- Yes [id number] 5mL Take 5 mL Univers e-dextromet 09-13 by mouth 4 i ty of horphan 00:00: 05:59 (four) [place] 6.25-15 00 :00 times Medical mg/5 mL daily for Branch syrup 10 days. ketorolac 2021-07 No 30mg 30 mg, Unive rs (TORADOL) -14 07- Intramuscu ity of injection 22:00: 21:20 [place], ONCE, [place] 30 mg 00 :00 1 dose, On Medical Fri Branch 07/14/22 at 1600, ZEE methocarbam 2021-07 Yes [id number] 500mg Take 1 Univers oL 500 mg 2-16 tablet by ity o f tablet 00:00: mouth 4 [place] 00 (four) Medical times Branch daily. naproxen 2021-07 Yes [id number] 500mg Take 1 U nivers (NAPROSYN) 2-16 tablet by ity of 500 mg 00:00: mouth in [place] tablet 00 the Medical morning Branch and 1 tablet in the evening. Take with meals. methocarbam 2021-07 Yes [id number] 500mg Take 1 Univers oL 500 mg 2-16 tablet by ity o f tablet 00:00: mouth 4 ([facility]) Medical times [place] daily. naproxen 2021-07 Yes [id number] 500mg Take 1 U nivers (NAPROSYN) 2-16 tablet by ity of 500 mg 00:00: mouth in [place] tablet 00 the Medical morning Branch and 1 tablet in the evening. Take with meals. methocarbam 2021-07 Yes [id number] 500mg Take 1 Univers oL 500 mg 2-16 tablet by ity o f tablet 00:00: mouth 4 (chi [facility]) [facility] times [place] daily. naproxen 2021-07 Yes [id number] 500mg Take 1 U nivers (NAPROSYN) 2-16 tablet by ity of 500 mg 00:00: mouth in [place] tablet 00 the Medical morning Branch and 1 tablet in the evening. Take with meals. methocarbam 2021-07 Yes [id number] 500mg Take 1 Univers oL 500 mg 2-16 tablet by ity o f tablet 00:00: mouth 4 ([facility]) [facility] times [place] daily. naproxen 2021-07 Yes [id number] 500mg Take 1 U nivers (NAPROSYN) 2-16 tablet by ity of 500 mg 00:00: mouth in [place] tablet 00 the [facility] morning Branch and 1 tablet in the evening. Take with meals. methocarbam 2021-07 Yes [id number] 500mg Take 1 Univers oL 500 mg 2-16 tablet by ity o f tablet 00:00: mouth 4 ([facility]) [facility] times [place] daily. naproxen 2021-07 Yes [id number] 500mg Take 1 U nivers (NAPROSYN) 2-16 tablet by ity of 500 mg 00:00: mouth in [place] tablet 00 the [facility] morning Branch and 1 tablet in the evening. Take with meals. methocarbam 2021-07 Yes [id number] 500mg Take 1 Univers oL 500 mg 2-16 tablet by ity o f tablet 00:00: mouth 4 ([facility]) [facility] times [place] daily. naproxen 2021-07 Yes [id number] 500mg Take 1 U nivers (NAPROSYN) 2-16 tablet by ity of 500 mg 00:00: mouth in [place] tablet 00 the Medical morning Branch and 1 tablet in the evening. Take with meals. methocarbam 2021-07 Yes [id number] 500mg Take 1 Univers oL 500 mg 2-16 tablet by ity o f tablet 00:00: mouth 4 ([facility]) Medical times Branch daily. naproxen 2021-07 Yes [id number] 500mg Take 1 U nivers (NAPROSYN) 2-16 tablet by ity of 500 mg 00:00: mouth in [place] tablet 00 the Medical morning Branch and 1 tablet in the evening. Take with meals. methocarbam 2021-07 Yes [id number] 500mg Take 1 Univers oL 500 mg 2-16 tablet by ity o f tablet 00:00: mouth 4 ([facility]) Medical times [place] daily. naproxen 2021-07 Yes [id number] 500mg Take 1 U nivers (NAPROSYN) 2-16 tablet by ity of 500 mg 00:00: mouth in [place] tablet 00 the Medical morning Branch and 1 tablet in the evening. Take with meals. methocarbam 2021-07 Yes [id number] 500mg Take 1 Univers oL 500 mg 2-16 tablet by ity o f tablet 00:00: mouth 4 ([facility]) Medical times [place] daily. naproxen 2021-07 Yes [id number] 500mg Take 1 [facility] n[facility] (NAPROSYN) 2-16 tablet by ity of 500 mg 00:00: mouth in [place] tablet 00 the Medical morning Branch and 1 tablet in the evening. Take with meals. methocarbam 2021-07 Yes [id number] 500mg Take 1 [facility] oL 500 mg 2-16 tablet by ity o f tablet 00:00: mouth 4 ([facility]) Medical times Branch daily. naproxen 2021-07 Yes [id number] 500mg Take 1 [facility] n[facility] (NAPROSYN) 2-16 tablet by ity of 500 mg 00:00: mouth in [place] tablet 00 the Medical morning Branch and 1 tablet in the evening. Take with meals. methocarbam 2021-07 Yes [id number] 500mg Take 1 [facility] oL 500 mg 2-16 tablet by ity o f tablet 00:00: mouth 4 ([facility]) Medical times Branch daily. naproxen 2021-07 Yes [id number] 500mg Take 1 [facility] n[facility] (NAPROSYN) 2-16 tablet by ity of 500 mg 00:00: mouth in [place] tablet 00 the Medical morning Branch and 1 tablet in the evening. Take with meals. methocarbam 2021-07 Yes [id number] 500mg Take 1 [facility] oL 500 mg 2-16 tablet by ity o f tablet 00:00: mouth 4 [place] (chi [facility]) Medical times [place] daily. naproxen 2021-07 Yes [id number] 500mg Take 1 [facility] n[facility] (NAPROSYN) 2-16 tablet by ity of 500 mg 00:00: mouth in [place] tablet 00 the Medical morning Branch and 1 tablet in the evening. Take with meals. methocarbam 2021-07 Yes [id number] 500mg Take 1 [facility] oL 500 mg 2-16 tablet by ity o f tablet 00:00: mouth 4 [place] 00 ([facility]) Medical times [place] daily. naproxen 2021-07 Yes [id number] 500mg Take 1 [facility] n[facility] (NAPROSYN) 2-16 tablet by ity of 500 mg 00:00: mouth in [place] tablet 00 the Medical morning Branch and 1 tablet in the evening. Take with meals. methocarbam 2021-07 Yes [id number] 500mg Take 1 [facility] oL 500 mg 2-16 tablet by ity o f tablet 00:00: mouth 4 [place] (chi [facility]) [facility] times [place] daily. naproxen 2021-07 Yes [id number] 500mg Take 1 [facility] nivers (NAPROSYN) 2-16 tablet by ity of 500 mg 00:00: mouth in [place] tablet 00 the Medical morning Branch and 1 tablet in the evening. Take with meals. Cholecalcif 2021-07 Yes 1000U Take 1,000 Univers [...] by mouth ity of tablet 10:34: daily. [address] aspirin 81 2021-07 Yes 81mg Take 81 mg [facility] nivers mg chewable 1-10 by mouth ity of tablet 10:34: daily. [address] aspirin 81 2021-07 Yes 81mg Take 81 mg [facility] mg chewable 1-10 by mouth ity of tablet 10:34: daily. [address] aspirin 81 2021-07 Yes 81mg Take 81 mg [facility] mg chewable 1-10 by mouth ity of tablet 10:34: daily. [address] aspirin 81 2021-07 Yes 81mg Take 81 mg [facility] mg chewable 1-10 by mouth ity of tablet 10:34: daily. [address] aspirin 81 2021-07 Yes 81mg Take 81 mg [facility] mg chewable 1-10 by mouth ity of tablet 10:34: daily. [address] aspirin 81 2021-07 Yes 81mg Take 81 mg [facility]ivers mg chewable 1-10 by mouth ity of tablet 10:34: daily. [address] acetylcyste 2021-07 Yes Take by [facility] vers ine (NAC 1-10 mouth. ity of ORAL) 10:34: [address] acetylcyste 2021-07 Yes Take by [facility] vers ine (NAC 1-10 mouth. ity of ORAL) 10:34: [address] acetylcyste 2021-07 Yes Take by [facility] vers ine (NAC 1-10 mouth. ity of ORAL) 10:34: [address] acetylcyste 2021-07 Yes Take by [facility] vers ine (NAC 1-10 mouth. ity of ORAL) 10:34: [address] acetylcyste 2021-07 Yes Take by [facility] vers ine (NAC 1-10 mouth. ity of ORAL) 10:34: [address] acetylcyste 2021-07 Yes Take by [facility] vers ine (NAC 1-10 mouth. ity of ORAL) 10:34: [address] acetylcyste 2021-07 Yes Take by [facility] vers ine (NAC 1-10 mouth. ity of ORAL) 10:34: [address] ZINC ORAL 2021-07 Yes 50mg Take 50 mg Un kath 1-10 by mouth. ity of 10:34: [address] ZINC ORAL 2021-07 Yes 50mg Take 50 mg Un kath 1-10 by mouth. ity of 10:34: [address] ZINC ORAL 2021-07 Yes 50mg Take 50 mg Un kath 1-10 by mouth. ity of 10:34: [address] ZINC ORAL 2021-07 Yes 50mg Take 50 mg Un kath 1-10 by mouth. ity of 10:34: [address] ZINC ORAL 2021-07 Yes 50mg Take 50 mg Un kath 1-10 by mouth. ity of 10:34: [address] ZINC ORAL 2021-07 Yes 50mg Take 50 mg Un kath 1-10 by mouth. ity of 10:34: [address] ZINC ORAL 2021-07 Yes 50mg Take 50 mg Un kath 1-10 by mouth. ity of 10:34: [address] vitamin C 2021-07 Yes 1000mg Take 1,000 [facility] with jazmin 1-10 mg by ity of hips 10:34: mouth in [place] (VITAMIN C) 12 the Medical 1,000 mg morning. Branch tablet vitamin C 2021-07 Yes 1000mg Take 1,000 [facility] with jazmin 1-10 mg by ity of hips 10:34: mouth in [place] (VITAMIN C) 12 the Medical 1,000 mg morning. Branch tablet vitamin C 2021-07 Yes 1000mg Take 1,000 [facility] with jazmin 1-10 mg by ity of hips 10:34: mouth in [place] (VITAMIN C) 12 the Medical 1,000 mg morning. Branch tablet vitamin C 2021-07 Yes 1000mg Take 1,000 [facility] with jazmin 1-10 mg by ity of hips 10:34: mouth in [place] (VITAMIN C) 12 the Medical 1,000 mg morning. Branch tablet vitamin C 2021-07 Yes 1000mg Take 1,000 [facility] with jazmin 1-10 mg by ity of hips 10:34: mouth in [place] (VITAMIN C) 12 the Medical 1,000 mg morning. Branch tablet vitamin C 2021-07 Yes 1000mg Take 1,000 [facility] with jazmin 1-10 mg by ity of hips 10:34: mouth in [place] (VITAMIN C) 12 the Medical 1,000 mg morning. Branch tablet vitamin C 2021-07 Yes 1000mg Take 1,000 [facility] with jazmin 1-10 mg by ity of hips 10:34: mouth in [place] (VITAMIN C) 12 the Medical 1,000 mg morning. Branch tablet loratadine 2021-07 Yes Take by [facility] ers (CLARITIN 1-10 mouth. ity of ORAL) 10:34: [place] [address] Medical Branch loratadine 2021-07 Yes Take by [facility] ers (CLARITIN 1-10 mouth. ity of ORAL) 10:34: [place] [address] Medical Branch loratadine 2021-07 Yes Take by [facility] ers (CLARITIN 1-10 mouth. ity of ORAL) 10:34: [place] [address] Medical Branch loratadine 2021-07 Yes Take by [facility] ers (CLARITIN 1-10 mouth. ity of ORAL) 10:34: [place] [address] Medical Branch loratadine 2021-07 Yes Take by [facility] ers (CLARITIN 1-10 mouth. ity of ORAL) 10:34: [place] [address] Medical Branch loratadine 2021-07 Yes Take by [facility] ers (CLARITIN 1-10 mouth. ity of ORAL) 10:34: [place] [address] Medical Branch loratadine 2021-07 Yes Take by [facility] ers (CLARITIN 1-10 mouth. ity of ORAL) 10:34: [place] [address] Medical Branch cyanocobala 2021-[address] [facility]ive [...] under the ity of vitamin 10:34: tongue. [place] Medical (VITAMIN Branch B-12) 5,000 mcg Subl glipiZIDE 2021-07 Yes [id number] 10mg Take 1 [facility] nivers XL 10 mg 24 1-10 tablet by ity of hr tablet 00:00: [place] 00 the Medical morning Branch and 1 tablet in the evening. glipiZIDE 2021-07 Yes [id number] 10mg Take 1 [facility] XL 10 mg 24 1-10 tablet by ity of hr tablet 00:00: [place] 00 the Medical morning Branch and 1 tablet in the evening. glipiZIDE 2021-07 Yes [id number] 10mg Take 1 [facility] XL 10 mg 24 1-10 tablet by ity of hr tablet 00:00: [place] 00 the Medical morning Branch and 1 tablet in the evening. glipiZIDE 2021-07 Yes [id number] 10mg Take 1 [facility] XL 10 mg 24 1-10 tablet by ity of hr tablet 00:00: [place] 00 the Medical morning Branch and 1 tablet in the evening. glipiZIDE 2021-07 Yes [id number] 10mg Take 1 [facility] XL 10 mg 24 1-10 tablet by ity of hr tablet 00:00: [place] 00 the Medical morning Branch and 1 tablet in the evening. glipiZIDE 2021-07 Yes [id number] 10mg Take 1 [facility] XL 10 mg 24 1-10 tablet by ity of hr tablet 00:00: [place] 00 the Medical morning Branch and 1 tablet in the evening. glipiZIDE 2021-07 Yes [id number] 10mg Take 1 [facility] XL 10 mg 24 1-10 tablet by ity of hr tablet 00:00: [place] 00 the Medical morning Branch and 1 tablet in the evening. glipiZIDE 2021-07 Yes [id number] 10mg Take 1 [facility] XL 10 mg 24 1-10 tablet by ity of hr tablet 00:00: mouth [place] 00 the Medical morning Branch and 1 tablet in the evening. glipiZIDE 2021-07 Yes [id number] 10mg Take 1 [facility] XL 10 mg 24 1-10 tablet by ity of hr tablet 00:00: [place] 00 the Medical morning Branch and 1 tablet in the evening. glipiZIDE 2021-07 Yes [id number] 10mg Take 1 [facility] XL 10 mg 24 1-10 tablet by ity of hr tablet 00:00: [place] 00 the Medical morning Branch and 1 tablet in the evening. glipiZIDE 2021-07 Yes [id number] 10mg Take 1 [facility] XL 10 mg 24 1-10 tablet by ity of hr tablet 00:00: mouth [place] 00 the Medical morning Branch and 1 tablet in the evening. glipiZIDE 2021-07 Yes [id number] 10mg Take 1 [facility] XL 10 mg 24 1-10 tablet by ity of hr tablet 00:00: [place] 00 the Medical morning Branch and 1 tablet in the evening. glipiZIDE 2021-07 Yes [id number] 10mg Take 1 [facility] XL 10 mg 24 1-10 tablet by ity of hr tablet 00:00: mouth [place] 00 the Medical morning Branch and 1 tablet in the evening. glipiZIDE 2021-07 Yes [id number] 10mg Take 1 [facility] XL 10 mg 24 1-10 tablet by ity of hr tablet 00:00: [place] 00 the Medical morning Branch and 1 tablet in the evening. glipiZIDE 2021-07 Yes [id number] 10mg Take 1 [facility] XL 10 mg 24 1-10 tablet by ity of hr tablet 00:00: [place] 00 the Medical morning Branch and 1 tablet in the evening. glipiZIDE 2021-07 Yes [id number] 10mg Take 1 [facility] XL 10 mg 24 1-10 tablet by ity of hr tablet 00:00: mouth [place] the Medical morning Branch and 1 tablet in the evening. losartan 50 2021-07 Yes [id number] 50mg Take 1 [facility] mg tablet 0-11 tablet by ity o f 00:00: mouth in [place] the Medical morning. Branch losartan 50 2021-07 Yes [id number] 50mg Take 1 [facility] mg tablet 0-11 tablet by ity o f 00:00: mouth in [place] the Medical morning. Branch losartan 50 2021-07 Yes [id number] 50mg Take 1 [facility] mg tablet 0-11 tablet by ity o f 00:00: mouth in [place] the Medical morning. Branch losartan 50 2021-07 Yes [id number] 50mg Take 1 [facility] mg tablet 0-11 tablet by ity o f 00:00: mouth in [place] 00 the Medical morning. Branch losartan 50 2021-07 Yes [id number] 50mg Take 1 [facility] mg tablet 0-11 tablet by ity o f 00:00: mouth in [place] 00 the Medical morning. Branch losartan 50 2021-07 Yes [id number] 50mg Take 1 [facility] mg tablet 0-11 tablet by ity o f 00:00: mouth in [place] 00 the Medical morning. Branch losartan 50 2021-07 Yes [id number] 50mg Take 1 [facility] mg tablet 0-11 tablet by ity o f 00:00: mouth in [place] 00 the Medical morning. Branch losartan 50 2021-07 Yes [id number] 50mg Take 1 [facility] mg tablet 0-11 tablet by ity o f 00:00: mouth in [place] the Medical morning. Branch losartan 50 2021-07 Yes [id number] 50mg Take 1 [facility] mg tablet 0-11 tablet by ity o f 00:00: mouth in [place] the Medical morning. Branch losartan 50 2021-07 Yes [id number] 50mg Take 1 [facility] mg tablet 0-11 tablet by ity o f 00:00: mouth in [place] the Medical morning. Branch losartan 50 2021-07 Yes [id number] 50mg Take 1 [facility] mg tablet 0-11 tablet by ity o f 00:00: mouth in [place] the Medical morning. Branch losartan 50 2021-07 Yes [id number] 50mg Take 1 [facility] mg tablet 0-11 tablet by ity o f 00:00: mouth in [place] the Medical morning. Branch losartan 50 2021-07 Yes [id number] 50mg Take 1 [facility] mg tablet 0-11 tablet by ity o f 00:00: mouth in [place] the Medical morning. Branch losartan 50 2021-07 Yes [id number] 50mg Take 1 [facility] mg tablet 0-11 tablet by ity o f 00:00: mouth in [place] the Medical morning. Branch losartan 50 2021-07 Yes [id number] 50mg Take 1 [facility] mg tablet 0-11 tablet by ity o f 00:00: mouth in [place] the Medical morning. Branch losartan 50 2021-07 Yes [id number] 50mg Take 1 [facility] mg tablet 0-11 tablet by ity o f 00:00: mouth in [place] the Medical morning. Branch losartan 50 2021-07 Yes [id number] 50mg Take 1 [facility] mg tablet 0-11 tablet by ity o f 00:00: mouth in [place] the Medical morning. Branch cyanocobala Yes Place Unive rs min, 03-02 under the ity of vitamin 10:34: tongue. [place] B-12, Medical (VITAMIN Branch B-12) 5,000 mcg Subl ZINC ORAL Yes 50mg Take 50 mg Un kath 03-02 by mouth. ity of 10:34: [place] [address] Medical Branch loratadine Yes Take by Univ ers (CLARITIN 03-02 mouth. ity of ORAL) 10:34: [place] [address] Medical Branch vitamin C 2022-0 Yes 1000mg Take 1,000 [facility] with jazmin 8-04 mg by ity of hips 10:34: mouth in [place] (VITAMIN C) 12 the Medical 1,000 mg morning. Branch tablet cyanocobala 2022-[address] Unive rs min, 8-04 under the ity of vitamin 10:34: tongue. [place] B Medical (VITAMIN Branch B-12) 5,000 mcg Subl ZINC ORAL 2022-0 Yes 50mg Take 50 mg Un kath 8-04 by mouth. ity of 10:34: [place] [address] Medical Branch loratadine 2-0 Yes Take by Univ ers (CLARITIN 8-04 mouth. ity of ORAL) 10:34: [place] [address] Medical Branch vitamin C 2-0 Yes 1000mg Take 1,000 [facility] with jazmin 8-04 mg by ity of hips 10:34: mouth in [place] (VITAMIN C) 12 the Medical 1,000 mg morning. Branch tablet cyanocobala 2022-[address] Unive rs min, 8-04 under the ity of vitamin 10:34: tongue. [place] Medical (VITAMIN Branch B-12) 5,000 mcg Subl ZINC ORAL 2-0 Yes 50mg Take 50 mg Un kath 8-04 by mouth. ity of 10:34: [place] [address] Medical Branch loratadine 2021-0 Yes Take by Univ ers (CLARITIN 8-04 mouth. ity of ORAL) 10:34: [place] [address] Medical Branch vitamin C 2-0 Yes 1000mg Take 1,000 [facility] with jazmin 8-04 mg by ity of hips 10:34: mouth in [place] (VITAMIN C) 12 the Medical 1,000 mg morning. Branch tablet cyanocobala 2022-[address] Unive rs min, 8-04 under the ity of vitamin 10:34: tongue. [place] B 12 Medical (VITAMIN Branch B-12) 5,000 mcg Subl ZINC ORAL 2022-0 Yes 50mg Take 50 mg Un kath 8-04 by mouth. ity of 10:34: [place] [address] Medical Branch loratadine 2-0 Yes Take by Univ ers (CLARITIN 8-04 mouth. ity of ORAL) 10:34: [place] [address] Medical Branch vitamin C 2-0 Yes 1000mg Take 1,000 [facility] with jazmin 8-04 mg by ity of hips 10:34: mouth in [place] (VITAMIN C) 12 the Medical 1,000 mg morning. Branch tablet cyanocobala 2021-[address] Unive rs min, 04 under the ity of vitamin 10:34: tongue. [place] B-12, 12 Medical (VITAMIN Branch B-12) 5,000 mcg Subl ZINC ORAL 2021-0 Yes 50mg Take 50 mg Un kath 8-04 by mouth. ity of 10:34: [place] [address] Medical Branch loratadine 0 Yes Take by Univ ers (CLARITIN 8-04 mouth. ity of ORAL) 10:34: [place] [address] Medical Branch vitamin C 2021-0 Yes 1000mg Take 1,000 [facility] with jazmin 8-04 mg by ity of hips 10:34: mouth in [place] (VITAMIN C) 12 the Medical 1,000 mg morning. Branch tablet Cholecalcif 2021-0 Yes 1000U Take 1,000 [facility] silvana, 8-04 [...] by mouth ity of tablet 10:33: daily. [address] aspirin 81 2022-0 Yes 81mg Take 81 mg U nivers mg chewable 8-04 by mouth ity of tablet 10:33: daily. [address] aspirin 81 2021-0 Yes 81mg Take 81 mg U nivers mg chewable 8-04 by mouth ity of tablet 10:33: daily. [address] aspirin 81 2-0 Yes 81mg Take 81 mg U nivers mg chewable 8-04 by mouth ity of tablet 10:33: daily. [address] aspirin 81 2-0 Yes 81mg Take 81 mg U nivers mg chewable 8-04 by mouth ity of tablet 10:33: daily. [address] acetylcyste 0 Yes Take by [facility] vers ine (NAC 8-04 mouth. ity of ORAL) 10:32: [address] acetylcyste 0 Yes Take by [facility] vers ine (NAC 8-04 mouth. ity of ORAL) 10:32: [address] acetylcyste 0 Yes Take by [facility] vers ine (NAC 8-04 mouth. ity of ORAL) 10:32: [address] acetylcyste 0 Yes Take by [facility] vers ine (NAC 8-04 mouth. ity of ORAL) 10:32: [address] acetylcyste 0 Yes Take by [facility] vers ine (NAC 8-04 mouth. ity of ORAL) 10:32: [address] glipiZIDE 2021-0 Yes [id number] 5mg Take 1 [facility] nivers XL 5 mg 24 8-04 tablet by ity of hr tablet 00:00: mouth in [address] Medical morning Branch and 1 tablet in the evening. metformin 2021-0 Yes [id number] 1000mg Take 2 [facility] ER 500 mg 8-04 tablets by ity of 24 hr 00:00: mouth in [address] morning Branch and 2 tablets in the evening. atorvastati 2021-0 Yes [id number] 40mg Take 1 [facility] n 40 mg 8-04 tablet by ity of tablet 00:00: mouth in [place] [address] the [facility] morning. Branch glipiZIDE 2021-0 Yes [id number] 5mg Take 1 U nivers XL 5 mg 24 8-04 tablet by ity of hr tablet 00:00: mouth in [address] Medical morning Branch and 1 tablet in the evening. metformin 2021-0 Yes [id number] 1000mg Take 2 [facility] ER 500 mg 8-04 tablets by ity of 24 hr 00:00: mouth in [place] tablet 00 the Medical morning Branch and 2 tablets in the evening. atorvastati 2021-0 Yes [id number] 40mg Take 1 [facility] n 40 mg 8-04 tablet by ity of tablet 00:00: mouth in [place] 00 the Medical morning. Branch glipiZIDE 2021-0 Yes [id number] 5mg Take 1 [facility] nivers XL 5 mg 24 8-04 tablet by ity of hr tablet 00:00: mouth [place] 00 the Medical morning Branch and 1 tablet in the evening. metformin 2021-0 Yes [id number] 1000mg Take 2 [facility] ER 500 mg 8-04 tablets by ity of 24 hr 00:00: mouth in [place] tablet 00 the Medical morning Branch and 2 tablets in the evening. atorvastati 2021-0 Yes [id number] 40mg Take 1 [facility] n 40 mg 8-04 tablet by ity of tablet 00:00: mouth in [place] 00 the Medical morning. Branch glipiZIDE 2021-0 Yes [id number] 5mg Take 1 [facility] nivers XL 5 mg 24 8-04 tablet by ity of hr tablet 00:00: mouth [place] 00 the Medical morning Branch and 1 tablet in the evening. metformin 2021-0 Yes [id number] 1000mg Take 2 [facility] ER 500 mg 8-04 tablets by ity of 24 hr 00:00: mouth in [place] tablet 00 the Medical morning Branch and 2 tablets in the evening. atorvastati 2021-0 Yes [id number] 40mg Take 1 [facility] n 40 mg 8-04 tablet by ity of tablet 00:00: mouth in [place] 00 the Medical morning. Branch glipiZIDE 2021-0 Yes [id number] 5mg Take 1 [facility] nivers XL 5 mg 24 8-04 tablet by ity of hr tablet 00:00: mouth [place] 00 the Medical morning Branch and 1 tablet in the evening. metformin 2021-0 Yes [id number] 1000mg Take 2 [facility] ER 500 mg 8-04 tablets by ity of 24 hr 00:00: mouth in [place] tablet 00 the Medical morning Branch and 2 tablets in the evening. atorvastati 2021-0 Yes [id number] 40mg Take 1 [facility] n 40 mg 8-04 tablet by ity of tablet 00:00: mouth in [place] 00 the Medical morning. Branch metformin 2021-0 Yes [id number] 1000mg Take 2 [facility] ER 500 mg 8-04 tablets by ity of 24 hr 00:00: mouth in [place] tablet 00 the Medical morning Branch and 2 tablets in the evening. atorvastati 2021-0 Yes [id number] 40mg Take 1 [facility] n 40 mg 8-04 tablet by ity of tablet 00:00: mouth in [place] 00 the Medical morning. Branch metformin 2021-0 Yes [id number] 1000mg Take 2 [facility] ER 500 mg 8-04 tablets by ity of 24 hr 00:00: mouth in [place] tablet 00 the Medical morning Branch and 2 tablets in the evening. atorvastati 2021-0 Yes [id number] 40mg Take 1 [facility] n 40 mg 8-04 tablet by ity of tablet 00:00: mouth in [place] 00 the Medical morning. Branch metformin 2021-0 Yes [id number] 1000mg Take 2 [facility] ER 500 mg 8-04 tablets by ity of 24 hr 00:00: mouth in [place] tablet 00 the Medical morning Branch and 2 tablets in the evening. atorvastati 2021-0 Yes [id number] 40mg Take 1 [facility] n 40 mg 8-04 tablet by ity of tablet 00:00: mouth in [place] 00 the Medical morning. Branch metformin 2021-0 Yes [id number] 1000mg Take 2 [facility] ER 500 mg 8-04 tablets by ity of 24 hr 00:00: mouth in [place] tablet 00 the Medical morning Branch and 2 tablets in the evening. atorvastati 2021-0 Yes [id number] 40mg Take 1 [facility] n 40 mg 8-04 tablet by ity of tablet 00:00: mouth in [place] 00 the Medical morning. Branch metformin 2021-0 Yes [id number] 1000mg Take 2 [facility] ER 500 mg 8-04 tablets by ity of 24 hr 00:00: mouth in [place] tablet 00 the Medical morning Branch and 2 tablets in the evening. atorvastati 2021-0 Yes [id number] 40mg Take 1 [facility] n 40 mg 8-04 tablet by ity of tablet 00:00: mouth in [place] 00 the Medical morning. Branch metformin 2021-0 Yes [id number] 1000mg Take 2 [facility] ER 500 mg 8-04 tablets by ity of 24 hr 00:00: mouth in [place] tablet 00 the Medical morning Branch and 2 tablets in the evening. atorvastati 2021-0 Yes [id number] 40mg Take 1 [facility] n 40 mg 8-04 tablet by ity of tablet 00:00: mouth in [place] 00 the Medical morning. Branch metformin 2021-0 Yes [id number] 1000mg Take 2 [facility] ER 500 mg 8-04 tablets by ity of 24 hr 00:00: mouth in [place] tablet 00 the Medical morning Branch and 2 tablets in the evening. atorvastati 2021-0 Yes [id number] 40mg Take 1 [facility] n 40 mg 8-04 tablet by ity of tablet 00:00: mouth in [place] 00 the Medical morning. Branch metformin 2021-0 Yes [id number] 1000mg Take 2 [facility] ER 500 mg 8-04 tablets by ity of 24 hr 00:00: mouth in [place] tablet 00 the Medical morning Branch and 2 tablets in the evening. atorvastati 2021-0 Yes [id number] 40mg Take 1 [facility] n 40 mg 8-04 tablet by ity of tablet 00:00: mouth in [place] 00 the Medical morning. Branch metformin 2021-0 Yes [id number] 1000mg Take 2 [facility] ER 500 mg 8-04 tablets by ity of 24 hr 00:00: mouth in [place] tablet 00 the Medical morning Branch and 2 tablets in the evening. atorvastati 2021-0 Yes [id number] 40mg Take 1 [facility] n 40 mg 8-04 tablet by ity of tablet 00:00: mouth in [place] 00 the Medical morning. Branch metformin 2021-0 Yes [id number] 1000mg Take 2 [facility] ER 500 mg 8-04 tablets by ity of 24 hr 00:00: mouth in [place] tablet 00 the Medical morning Branch and 2 tablets in the evening. atorvastati 2021-0 Yes [id number] 40mg Take 1 [facility] n 40 mg 8-04 tablet by ity of tablet 00:00: mouth in [place] 00 the Medical morning. Branch metformin 2021-0 Yes [id number] 1000mg Take 2 [facility] ER 500 mg 8-04 tablets by ity of 24 hr 00:00: mouth in [place] tablet 00 the Medical morning Branch and 2 tablets in the evening. atorvastati 2021-0 Yes [id number] 40mg Take 1 [facility] n 40 mg 8-04 tablet by ity of tablet 00:00: mouth in [place] 00 the Medical morning. Branch metformin 2021-0 Yes [id number] 1000mg Take 2 [facility] ER 500 mg 8-04 tablets by ity of 24 hr 00:00: mouth in [place] tablet 00 the Medical morning Branch and 2 tablets in the evening. atorvastati 2021-0 Yes [id number] 40mg Take 1 [facility] n 40 mg 8-04 tablet by ity of tablet 00:00: mouth in [place] 00 the Medical morning. Branch metformin 2021-0 Yes [id number] 1000mg Take 2 [facility] ER 500 mg 8-04 tablets by ity of 24 hr 00:00: mouth in [place] tablet 00 the Medical morning Branch and 2 tablets in the evening. atorvastati 2021-0 Yes [id number] 40mg Take 1 [facility] n 40 mg 8-04 tablet by ity of tablet 00:00: mouth in [place] 00 the Medical morning. Branch metformin 2021-0 Yes [id number] 1000mg Take 2 [facility] ER 500 mg 8-04 tablets by ity of 24 hr 00:00: mouth in [place] tablet 00 the Medical morning Branch and 2 tablets in the evening. atorvastati 2021-0 Yes [id number] 40mg Take 1 [facility] n 40 mg 8-04 tablet by ity of tablet 00:00: mouth in [place] 00 the Medical morning. Branch metformin 2021-0 Yes [id number] 1000mg Take 2 [facility] ER 500 mg 8-04 tablets by ity of 24 hr 00:00: mouth in [place] tablet 00 the Medical morning Branch and 2 tablets in the evening. metformin 2021-0 Yes [id number] 1000mg Take 2 [facility] ER 500 mg 8-04 tablets by ity of 24 hr 00:00: mouth in [place] tablet 00 the Medical morning Branch and 2 tablets in the evening. atorvastati 2021-0 3- No [id number] 40mg Take 1 [facility] n 40 mg 8-04 03-27 tablet by ity of tablet 00:00: 00:00 mouth in [place] 00 :00 the Medical morning. Branch glipiZIDE 2021-0 2- No [id number] 5mg Take 1 [facility] XL 5 mg 24 8-04 11-10 tablet by ity of hr tablet 00:00: 00:00 mouth in [place] 00 :00 the Medical morning Branch and 1 tablet in the evening. glipiZIDE 2021- No [id number] 5mg Take 1 [facility] XL 5 mg 24 8-04 11-10 tablet by ity of hr tablet [...] 00 :00 daily. Medical Branch fluticasone Yes [id number] 1{spray Use 1 [facility] propionate 8-02 } [place] in ity o f 50 00:00: each [place] mcg/actuati 00 nostril Medic al on nasal daily. Branch spray fluticasone Yes [id number] 1{spray Use 1 [facility] propionate 8-02 } [place] in ity o f 50 00:00: each [place] mcg/actuati 00 nostril Medic al on nasal daily. Branch spray fluticasone Yes [id number] 1{spray Use 1 [facility] propionate 8-02 } [place] in ity o f 50 00:00: each [place] mcg/actuati 00 nostril Medic al on nasal daily. Branch spray fluticasone Yes [id number] 1{spray Use 1 [facility] propionate 8-02 } [place] in ity o f 50 00:00: each [place] mcg/actuati 00 nostril Medic al on nasal daily. Branch spray fluticasone Yes [id number] 1{spray Use 1 Univers propionate 8-02 } [place] in ity o f 50 00:00: each [place] mcg/actuati 00 nostril Medic al on nasal daily. Branch spray fluticasone 0 Yes [id number] 1{spray Use 1 Univers propionate 8-02 } [place] in ity o f 50 00:00: each [place] mcg/actuati 00 nostril Medic al on nasal daily. Branch spray fluticasone 2020-0 Yes [id number] 1{spray Use 1 Univers propionate 8-02 } [place] in ity o f 50 00:00: each [place] mcg/actuati 00 nostril Medic al on nasal daily. Branch spray fluticasone 0 Yes [id number] 1{spray Use 1 [facility] propionate 8-02 } [place] in ity o f 50 00:00: each [place] mcg/actuati 00 nostril Medic al on nasal daily. Branch spray fluticasone 2020-0 Yes [id number] 1{spray Use 1 [facility] propionate 8-02 } [place] in ity o f 50 00:00: each [place] mcg/actuati 00 nostril Medic al on nasal daily. Branch spray fluticasone 0 Yes [id number] 1{spray Use 1 [facility] propionate 8-02 } [place] in ity o f 50 00:00: each [place] mcg/actuati 00 nostril Medic al on nasal daily. Branch spray fluticasone 0 Yes [id number] 1{spray Use 1 [facility] propionate 8-02 } [place] in ity o f 50 00:00: each [place] mcg/actuati 00 nostril Medic al on nasal daily. Branch spray fluticasone 2020-0 Yes [id number] 1{spray Use 1 Univers propionate 8-02 } [place] in ity o f 50 00:00: each [place] mcg/actuati 00 nostril Medic al on nasal daily. Branch spray fluticasone 2020-0 2023- No [id number] 1{spray Use 1 Univers propionate 8-02 02-28 } [place] in ity of 50 00:00: 00:00 each [place] mcg/actuati 00 :00 nostril Medic al on nasal daily. Branch spray fluticasone 2020-0 2023- No [id number] 1{spray Use 1 Univers propionate 8-02 02-28 } [place] in ity of 50 00:00: 00:00 each [place] mcg/actuati 00 :00 nostril Medic al on nasal daily. Branch spray mupirocin 2 2020-0 Yes [id number] Apply to Univers % cream 6-15 area(s) 3 ity of 00:00: (three) [place] 00 times Medical daily. Branch mupirocin 2 2020-0 Yes [id number] Apply to Univers % cream 6-15 area(s) 3 ity of 00:00: (three) [place] 00 times Medical daily. Branch mupirocin 2 2020-0 Yes [id number] Apply to Univers % cream 6-15 area(s) 3 ity of 00:00: (three) [place] 00 times Medical daily. Branch mupirocin 2 2020-0 Yes [id number] Apply to Univers % cream 6-15 area(s) 3 ity of 00:00: (three) [place] 00 times Medical daily. Branch mupirocin 2 2020-0 Yes [id number] Apply to Univers % cream 6-15 area(s) 3 ity of 00:00: (three) [place] 00 times Medical daily. Branch mupirocin 2 2020-0 Yes [id number] Apply to Univers % cream 6-15 area(s) 3 ity of 00:00: (three) [place] 00 times Medical daily. Branch mupirocin 2 2020-0 Yes [id number] Apply to Univers % cream 6-15 area(s) 3 ity of 00:00: (three) [place] 00 times Medical daily. Branch mupirocin 2 2020-0 Yes [id number] Apply to Univers % cream 6-15 area(s) 3 ity of 00:00: (three) [place] 00 times Medical daily. Branch mupirocin 2 2020-0 Yes [id number] Apply to Univers % cream 6-15 area(s) 3 ity of 00:00: (three) [place] 00 times Medical daily. Branch mupirocin 2 2020-0 Yes [id number] Apply to Univers % cream 6-15 area(s) 3 ity of 00:00: (three) [place] 00 times Medical daily. Branch mupirocin 2 2020-0 Yes [id number] Apply to Univers % cream 6-15 area(s) 3 ity of 00:00: (three) [place] 00 times Medical daily. Branch mupirocin 2 2020-0 Yes [id number] Apply to Univers % cream 6-15 area(s) 3 ity of 00:00: (three) [place] 00 times Medical daily. Branch mupirocin 2 2020-0 Yes [id number] Apply to Univers % cream 6-15 area(s) 3 ity of 00:00: (three) [place] 00 times Medical daily. Branch mupirocin 2 2020-0 Yes [id number] Apply to Univers % cream 6-15 area(s) 3 ity of 00:00: (three) [place] 00 times Medical daily. Branch mupirocin 2 2020-0 Yes [id number] Apply to Univers % cream 6-15 area(s) 3 ity of 00:00: (three) [place] 00 times Medical daily. Branch mupirocin 2 2020-0 Yes [id number] Apply to Univers % cream 6-15 area(s) 3 ity of 00:00: (three) [place] 00 times Medical daily. Branch mupirocin 2 2020-0 Yes [id number] Apply to Univers % cream 6-15 area(s) 3 ity of 00:00: (three) [place] 00 times Medical daily. Branch mupirocin 2 2020-0 Yes [id number] Apply to Univers % cream 6-15 area(s) 3 ity of 00:00: (three) [place] 00 times Medical daily. Branch mupirocin 2 2020-0 Yes [id number] Apply to Univers % cream 6-15 area(s) 3 ity of 00:00: (three) [place] 00 times Medical daily. Branch mupirocin 2 2020-0 Yes [id number] Apply to Univers % cream 6-15 area(s) 3 ity of 00:00: (three) [place] 00 times Medical daily. Branch mupirocin 2 2020-0 Yes [id number] Apply to Univers % cream 6-15 area(s) 3 ity of 00:00: (three) [place] 00 times Medical daily. Branch Vital Signs Vital Name Observation Time Observation Value Comments Source Systolic blood 2022-09-26 15:12:00 139 mm[Hg] Univer sity of pressure [facility] Diastolic blood 2022-09-26 15:12:00 91 mm[Hg] Unive rsity of pressure [facility] Heart rate 2022-09-26 15:10:00 97 /min [facility] [place] [facility] Respiratory rate 2022-09-26 15:10:00 18 /min [facility] [place] [facility] Body weight 2022-09-26 15:10:00 78.472 kg [facility] [place] [facility] BMI 2022-09-26 15:10:00 30.65 kg/m2 [facility] [place] [facility] Oxygen saturation in 2022-09-26 15:10:00 97 /min University of Arterial blood by [place] [employer] pastor Pulse oximetry Branch Systolic blood 2022-09-13 17:56:00 158 mm[Hg] Univer sity of pressure [place] [facility] Diastolic blood 2022-09-13 17:56:00 102 mm[Hg] Unive rsity of pressure [place] [facility] Heart rate 2022-09-13 17:55:00 101 /min [facility] [place] [facility] Body temperature 2022-09-13 17:55:00 36.78 Patricia [facility] [place] [facility] Respiratory rate 2022-09-13 17:55:00 17 /min [facility] [place] [facility] Body height 2022-09-13 17:55:00 160 cm [facility] [place] [facility] Body weight 2022-09-13 17:55:00 79.425 kg [facility] [place] [facility] BMI 2022-09-13 17:55:00 31.02 kg/m2 [facility] [place] [facility] Oxygen saturation in 2022-09-13 17:55:00 97 /min University of Arterial blood by [facility] pastor Pulse oximetry Branch Systolic blood 2022-07-14 21:31:04 159 mm[Hg] Univer sity of pressure [place] [facility] Diastolic blood 2022-07-14 21:31:04 78 mm[Hg] Unive rsity of pressure [place] [facility] Heart rate 2022-07-14 21:31:04 95 /min [facility] [place] [facility] Body temperature 2022-07-14 21:31:04 36.78 Patricia [facility] [place] [facility] Respiratory rate 2022-07-14 21:31:04 16 /min [facility] [place] [facility] Body height 2022-07-14 19:45:00 160 cm [facility] [place] [facility] Body weight 2022-07-14 19:45:00 76.204 kg [facility] [place] [facility] BMI 2022-07-14 19:45:00 29.76 kg/m2 [facility] [place] [facility] Oxygen saturation in 2022-07-14 19:45:00 100 /min University of Arterial blood by [facility] pastor Pulse oximetry Branch Systolic blood 2022-06-08 15:36:00 137 mm[Hg] Univer sity of pressure [place] [facility] Diastolic blood 2022-06-08 15:36:00 84 mm[Hg] Unive rsity of pressure [place] [facility] Heart rate 2022-06-08 15:36:00 89 /min [facility] [place] [facility] Respiratory rate 2022-06-08 15:36:00 18 /min [facility] [place] [facility] Body weight 2022-06-08 15:36:00 76.749 kg [facility] [place] [facility] BMI 2022-06-08 15:36:00 29.97 kg/m2 [facility] [place] [facility] Oxygen saturation in 2022-06-08 15:36:00 96 /min University of Arterial blood by [facility] Pulse oximetry Branch Systolic blood 2022-04-18 19:39:00 144 mm[Hg] Univer sity of pressure [place] [facility] Diastolic blood 2022-04-18 19:39:00 95 mm[Hg] Unive rsity of pressure [place] [facility] Heart rate 2022-04-18 19:38:00 96 /min [facility] [place] [facility] Body temperature 2022-04-18 19:38:00 36.89 Patricia [facility] [place] [facility] Respiratory rate 2022-04-18 19:38:00 18 /min [facility] [place] [facility] Body height 2022-04-18 19:38:00 160 cm [facility] [place] [facility] Body weight 2022-04-18 19:38:00 78.064 kg [facility] [place] [facility] BMI 2022-04-18 19:38:00 30.49 kg/m2 [facility] [place] [facility] Oxygen saturation in 2022-04-18 19:38:00 98 /min University of Arterial blood by [facility] Pulse oximetry Branch Procedures Procedure Date / Time Performed Performing Clinician Juan e EXTERNAL PROVIDER 2022-10-20 05:01:00 Doctor Unassigned, No [facility] Medical Branch EXTERNAL PROVIDER 2022-10-12 05:01:00 Doctor Unassigned, No [facility] RECORDS Name Medical [facility] PATIENT FINANCIAL 2022-09-26 14:35:35 Doctor Unassigned, No [facility] POLICY Name [facility] POCT SARS-COV-2 2022-09-13 18:26:00 Dirk Jimenez [place] [facility] [place] ANTIGEN (BINAX NOW) Medical Bran ch POCT MOLECULAR FLU 2022-09-13 18:16:00 Unknown, Attending [facility] CONSENT/REFUSAL FOR 2022-09-13 17:40:59 Doctor Unassigned, No Un [facility] DIAGNOSIS AND Name Medical Branch TREATMENT ASSIGNMENT OF BENEFITS 2022-09-13 17:40:40 Doctor Unassigned, No [facility] Branch CT LUMBAR SPINE WO 2022-07-14 21:30:00 Sheron Tol[facility] Branch CONSENT/REFUSAL FOR 2022-07-14 19:38:20 Doctor Unassigned, No [facility] AND Name Medical Branch TREATMENT POCT MOLECULAR STREP 2022-04-18 19:37:00 Dirk Jimenez [facility] Encounters Start End Encounter Admission Attending Care Care Encounter Source Date/Time Date/Time Type Type Clinicians Facility Department ID 2021-05-[address] [facility] [id number] Univers 18:31:18 [facility] 2023-02-06 2023-02-06 Outpatient R SHERWIN [facility] [id number] Univers 10:00:00 10:00:[address] [facility] 2023-02-06 2023-02-06 Outpatient R SHERWIN [facility] [id number] Univers 10:00:00 10:00:00 MAK [facility] o [facility] 2023-01-18 2023-01-18 Outpatient R CARSON [facility] [id number] Univers 14:40:00 14:40:00 CHARLETTE [facility] 2022-11-24 2022-11-24 Telephone [facility] 1.2.840.114 [id number] Univers 00:00:00 00:00:00 Charlette MCKEON 350.1.13.10 i ty [facility] [place] [phone] Oh dical NAL 044 [facility] 2022-11-14 2022-11-14 Outpatient Jose Miguel MUNIZ [facility] [id number] Univers 14:30:00 14:30:00 HUMAIR ity of [facility] 2022-10-23 2022-10-23 Ivette Rosales [facility] 1.2.840.114 [id number] Univers 00:00:00 00:00:00 Mak MCKEON 350.1.13.10 [facility]y [facility] [place] [id number] Oh dical NAL 059 [facility] 2022-10-20 2022-10-20 Orders Doctor STOUT 1.2.840.114 [id number] Univers 00:00:00 00:00:00 Only Unassigned, [place] 350.1.13.10 [place] [facility] [place].2.[place] [phone] [address] 2022-10-12 2022-10-12 Orders Doctor ARGELIA 1.2.840.114 [id number] Univers 00:00:00 00:00:00 Only Unassigned, [place] 350.1.13.10 [place] [facility] [place].2.[place] [id number] [address] 2022-10-10 2022-10-10 Telephone Carson [facility] 1.2.840.114 [id number] Univers 00:00:00 00:00:00 Charlette MCKEON 350.1.13.10 i ty of [facility] 4[place] [id number] Oh dical NAL 044 [facility] 2022-09-26 2022-09-26 Webbing Supervisor 2, Adc Lab [facility] 1.2.840.114 [id number] Univers 09:45:00 10:00:00 Visit Charlette Hope 350.1.13.10 ity [place] [facility] 4[place] [phone] Me dical NAL 353 [facility] 2022-09-26 2022-09-26 [id number] Univers 09:20:00 09:43:59 PETER ittremayne [facility] [place] [facility] 2022-09-26 2022-09-26 Office [facility] 1.2.840.114 [id number] Univers 09:20:00 09:43:59 Visit Charlette MCKEON 350.1.13.10 i ty [place]7.[place] [phone] [facility] 044 [facility] 2022-09-26 2022-09-26 Orders Doctor ARGELIA 1.2.840.114 [id number] Univers 00:00:00 00:00:00 Only Unassigned, [place] 350.1.13.10 [place] [facility] [place].2.[place] [id number] [address] 2022-09-26 2022-09-26 Telephone [facility] 1.2.840.114 [id number] Univers 00:00:00 00:00:00 Charlette MCKEON 350.1.13.10 i ty [place] [id number] [facility] 044 [facility] 2022-09-13 2022-09-13 Urgent Dirk Jimenez [facility] 1.2.840.114 [id number] Univers 11:20:00 11:40:00 Care Unknown, Attending HEALTH 350.1.13.10 ity of [place] 4.2.7.2.686 [place] MANISHA?BLEA [phone] [facility] TANYA 370 [facility] OFFICE BUILDING 2022-09-13 2022-09-13 Outpatient R TONY [facility] [id number] Univers 11:20:00 11:20:00 RANIA ity [facility] [place] [facility] 2022-09-13 2022-09-13 Orders Doctor ARGELIA 1.2.840.114 [id number] Univers 00:00:00 00:00:00 Only Unassigned, [place] 350.1.13.10 [place] [facility] 4.2.[place].2.[place] [phone] [facility] 009 Branch 2022-09-13 2022-09-13 Ida Jimenez [facility] 1.2.840.114 [id number] Univers 00:00:00 00:00:00 (Out) [employer] 350.1.13.10 it [facility] 4.2.7.2.[place] MANISHA?BLEA [id number] Oh dical [facility] [address] MEDICAL OFFICE BUILDING 2022-07-14 2022-07-14 Emergency X MARIAJOSE, K [facility] ERT [id number] Univers 13:47:00 17:07:00 ity of [facility] 2022-07-14 2022-07-14 Emergency Mariajose, [facility] 1.2.840.114 [id number] Univers 13:47:00 17:07:00 [facility] 350.1.13.10 i ty [place].2.[place] [phone] [facility] [address] 2022-06-27 2022-06-27 Outpatient R WILLIAMS [facility] [id number] Univers 10:15:00 10:15:00 SHARAN [facility] 2022-06-08 2022-06-08 Outpatient [facility] [id number] Univers 09:40:00 10:55:51 KATHRIN simentaly [facility] [place] [facility] 2022-06-08 2022-06-08 Office [facility] 1.2.840.114 [id number] Univers 09:40:00 10:55:51 Visit Kathrin MCKEON 350.1.13.10 ity [facility] 4.2.[place] [phone] Oh femi [facility] 231 Branch BUILDING 2022-05-05 2022-05-05 Ivette [facility] 1.2.840.114 [id number] Univers 00:00:00 00:00:00 Mak MCKEON 350.1.13.10 ity [facility] [place] [phone] Oh gloriami NAL 059 Branch [facility] 2022-05-04 2022-05-04 Refill [facility] 1.2.840.114 [id number] Univers 00:00:00 00:00:00 Mak MCKEON 350.1.13.10 [place] [phone] [facility] 059 [facility] 2022-04-19 2022-04-19 Letter ARGELIA Luz 1.2.840.114 [id number] Univers 00:00:00 00:00:00 (Out) Yari BRO 350.1.13.10 it y of [facility] 4.2.7.2.686 [place] [phone] [address] 2022-04-18 2022-04-18 Outpatient R [address]Y [facility] [id number] Univers 14:20:00 14:54:17 [facility] 2022-04-18 2022-04-18 Urgent [facility] 1.2.840.114 [id number] Univers 14:20:00 14:40:[address] [facility] 350.1.13.10 it y of [place] 4.2.7.2.686 [place] MANISHA?BLEA [phone] [facility] [address] MEDICAL OFFICE BUILDING 2022-03-13 2022-03-13 Patient Oren [facility] 1.2.840.114 [id number] Univers 00:00:00 00:00:00 Outreach Winsome MCKEON 350.1.13.10 ity [place] [id number] [facility] 231 [facility] 2022-03-06 2022-03-06 Telephone [facility] 1.2.387.614 [id number] Univers 00:00:00 00:00:00 Mak MCKEON 350.1.13.10 [place] [id number] [facility] 059 [facility] 2022-03-04 2022-03-04 Orders Doctor ARGELIA 1.2.840.114 [id number] Univers 00:00:00 00:00:00 Only Unassigned, BRO 350.1.13.10 ity of [facility] 4.2.7.2.686 [place] [phone] [address] 2022-03-02 2022-03-02 Office Jasmine, [facility] 1.2.840.114 [id number] Univers 09:40:00 11:06:59 Visit Kathrin MCKEON 350.1.13.10 ity [facility] 4[place] [id number] Oh dical NAL 231 [facility] 2022-03-02 2022-03-02 Outpatient [facility] [id number] Univers 09:40:00 11:06:59 [facility] 2022-03-02 2022-03-02 Outpatient R [facility] [id number] Univers 09:40:00 09:40:00 [facility] 2022-03-02 2022-03-02 [facility] [id number] Univers 09:40:00 09:40:00 [facility]-02 2022-03-02 [facility] [id number] Univers 09:40:00 09:40:00 [facility] 2022-03-02 2022-03-02 [facility] [id number] Univers 09:40:00 09:40:00 [facility] 2022-03-02 2022-03-02 Refill [facility] 1.2.840.114 [id number] Univers 00:00:00 00:00:00 Mak MCKEON 350.1.13.10 ity [facility] 4[place] [id number] Oh dical NAL 059 [facility] 2022-02-23 2022-02-23 Telephone Sherwin [facility] 1.2.126.745 [id number] Univers 00:00:00 00:00:00 Angelclara ADONISTON 350.1.13.10 ity of [place] 4[place].2.[place] [id number] Oh dical NAL 059 [facility] 2022-02-21 2022-02-21 Outpatient R SHERWIN, [facility] [id number] Univers 16:00:00 16:00:[address] [facility] 2022-02-21 2022-02-21 Outpatient R SHERWIN, [facility] [id number] Univers 14:44:32 15:12:[address] [facility] 2022-02-15 2022-02-15 Patient [facility] 1.2.840.114 [id number] Univers 00:00:00 00:00:00 Secure Msg Kathrin MCKEON 350.1.13.10 ity of [place] 4[place]2.7.2.[place] [phone] Oh gloriaal NAL 044 [facility] 2022-02-14 2022-02-14 Webbing Supervisor 2, Adc Lab [facility] 1.2.840.114 [id number] Univers 10:30:00 10:45:00 Visit Kathrin Jasmine 350.1. 13.10 ity of [place] 4[place] [id number] Oh dical NAL 353 [facility] 2022-02-14 2022-02-14 Outpatient R JASMINE, [facility] [id number] Univers 10:30:00 10:30:00 KATHRIN ittremayne of [facility] 2022 2022 Outpatient R SHERWIN, [facility] [id number] Univers 13:40:00 14:09:[address] [facility] 2022 2022 Office Sherwin, [facility] 1.2.840.114 [id number] Univers 13:40:00 14:09:01 Visit Mak MCKEON 350.1.13.10 ity of [place] [id number] Oh dical NAL 059 [facility] 2022 2022 Outpatient R SHERWIN [facility] [id number] Univers 13:40:00 14:09:01 HARRISRADHA simentaly o f [facility] 2021-11-08 2021-11-08 [facility] 1.2.840.114 [id number] Univers 00:00:00 00:00:00 Kathrin NESBITTTON 350.1.13.10 ity [facility] [place]2.[place] [id number] Oh dical NAL 231 [facility] 2021-11-07 2021-11-07 Refaugustus RosalesDZIL[facility] 1.2.840.114 [id number] Univers 00:00:00 00:00:00 Mak NESBITTTON 350.1.13.10 ity [facility] 4[place] [id number] Oh dicmi NAL 059 [facility] 2021-11-01 2021-11-01 Sterling [facility] 1.2.840.114 [id number] Univers 09:45:00 10:00:00 Visit [facility] 350.1.13.10 it y of [place] 4.2.7.2.686 [facility] [id number] [facility] [address] 2021-11-01 2021-11-01 Outpatient R NERY [facility] [id number] Univers 09:45:00 09:45:00 HUMAIR ity [facility] 2021-10-20 2021-10-20 Outpatient R [facility] [id number] Univers 10:13:12 23:59:00 KATHRIN ity [facility] 2021-10-20 2021-10-20 [facility] 1.2.840.114 [id number] Univers 10:13:12 23:59:00 Encounter Kathrin MCKEON 350.1.13.10 ity of [facility] 4.2.7.2.686 [facility] [place] [id number] [facility] 800 Branch 2021-10-03 2021-10-03 Case [facility] 1.2.840.114 [id number] Univers 00:00:00 00:00:00 Management Kathrin MCKEON 350.1.13.10 [facility] [place] [id number] [facility] 231 [facility] 2021-09-15 2021-09-15 Outpatient R JASMINE, [facility] [id number] Univers 13:00:00 13:00:00 KATHRIN dick [facility] 2021-09-01 2021-09-01 Webbing Supervisor 2, Adc Lab [facility] 1.2.840.114 [id number] Univers 13:00:00 13:15:00 Visit Kathrin Jasmine 350.1. 13.10 [facility] [place] [id number] [facility] 353 [facility] 2021-09-01 2021-09-01 [facility] [id number] Univers 13:00:00 13:00:00 KATHRIN dick [facility] 2021-09-01 2021-09-01 [facility] 1.2.840.114 [id number] Univers 09:00:00 10:41:55 Visit Kathrin MCKEON 350.1.13.10 [place] [id number] [address] 2021-09-01 2021-09-01 [facility] [id number] Univers 09:00:00 10:41:55 KATHRIN dick [facility] 2021-09-01 2021-09-01 Orders Doctor STOUT 1.2.840.114 [id number] Univers 00:00:00 00:00:00 Only Unassigned, BRO 350.1.13.10 [place]y of [place] [facility] 4.2.7.2.[place] [id number] [facility] 009 Branch 2021-08-18 2021-08-18 Urgent Liana Chowdhury [facility] 1.2.840.114 [id number] Univers 10:40:00 11:00:00 Care Green, [facility] 350.1.13.10 ity of [place] 4.2.7.2.686 [place] MANISHA?BLEA [phone] Oh femi MARTÍNEZ [address] MEDICAL OFFICE [facility] 2021-08-18 2021-08-18 Outpatient R [facility] [id number] Univers 10:40:00 10:40:00 LIANA [facility] 2021-08-07 2021-08-07 Outpatient [facility] [id number] Univers 17:40:00 18:44:41 ANDREW [facility] 2021-08-07 2021-08-07 Urgent Jameyjudith [facility] 1.2.840.11 [id number] Univers 17:40:00 18:00:00 Care Unknown, [facility] [id number] ity [place] 4.2.7.2.686 [place] MNAISHA?BLEA [phone] Oh femi MARTÍNEZ 370 [facility] OFFICE [facility] 2021-08-05 2021-08-05 [facility] 1.2.840.114 [id number] Univers 00:00:00 00:00:00 Kathrin MCKEON 350.1.13.10 it[place] [phone] Oh femi MCMULLEN 231 [facility] 2021-06-14 2021-06-14 Outpatient R [facility] [id number] Univers 09:00:00 09:00:00 KATHRIN dick [facility] 2021-06-02 2021-06-02 Orders Doctor STOUT 1.2.840.114 [id number] Univers 00:00:00 00:00:00 Only Unassigned, BRO 350.1.13.10 ity of [place] [facility] 4.2.7.2.686 [place] [phone] [address] 2021-05-23 2021-05-23 Telephone Mitali ILMB 1.2.840.114 [id number] Univers 00:00:00 00:00:00 Kathrin Mckeon 350.1.13.10 [place] [phone] Oh dical nal 044 [facility] 2021-05-10 2021-05-10 Office [facility] 1.2.840.114 [id number] Univers 11:20:05 11:44:52 Visit Mak Mckeon 350.1.13.10 [place] [phone] Oh dicgilda nal 059 [facility] 2021-05-10 2021-05-10 Outpatient R [facility] [id number] Univers 11:20:00 11:20:00 MAK dick o f [facility] 2021-03-15 2021-03-15 [facility] 1.2.840.114 [id number] Univers 00:00:00 00:00:00 Management Kathrin Mckeon 350.1.13.10 [place] [phone] Oh femi chinmay 231 [facility] 2021-03-01 2021-03-01 Outpatient R MITALI [facility] [id number] Univers 10:15:00 10:15:00 KATHRIN dick of [facility] 2021-03-01 2021-03-01 Webbing Supervisor 2, Adc Lab [facility] 1.2.840.114 [id number] Univers 09:45:20 10:00:20 Visit Kathrin Jasmine 350.1. 13.10 [place] [phone] Oh gloriagilda chinmay 353 [facility] 2021-02-28 2021-02-28 Telemedici [facility] 1.2.840.114 [id number] Univers 15:07:51 16:32:56 ne Visit Kathrin Mckeon 350.1.13.10 [place] [phone] [address] 2021-02-28 2021-02-28 Outpatient R MITALI [facility] [id number] Univers 15:00:00 15:00:00 KATHRIN ity [facility] 2021-02-28 2021-02-28 Refill [facility] 1.2.840.114 [id number] Univers 00:00:00 00:00:00 Kathringlenys [place] 350.1.13.10 [place] [phone] [address] 2021-02-27 2021-02-27 Refill Jace [facility] 1.2.840.114 [id number] Univers 00:00:00 00:00:00 s [facility] 350.1.13.10 ity of [place] 4.2.7.2.686 [place] [phone] [address] Office [facility] 2021-02-27 2021-02-27 Refill [facility] 1.2.840.114 [id number] Univers 00:00:00 00:00:00 [facility] 350.1.13.10 it y [place] 4.2.[place].2.[place] [phone] [address] Office [facility] 2021-02-05 2021-02-05 Urgent Liana Chowdhury [facility] 1.2.840.114 [id number] Univers 13:16:32 13:36:32 Care [facility] [id number] it[place] 4.2.7.2.686 [place] [phone] [address] Office [facility] 2021-02-05 2021-02-05 [address] R NOA [facility] [id number] Univers 13:20:00 13:20:00 [facility] 2021-01-29 2021-01-29 Urgent Provider, [facility] 1.2.840.114 [id number] [facility] 17:34:49 18:20:41 Care Alex May [facility] [id number] ity of [place] 4.2.7.2.686 [place] Profess[place] [phone] [facility] [address] Office [facility] 2021-01-29 2021-01-29 Outpatient R YADIRA [facility] [id number] [facility] 17:40:00 17:40:00 ALEX ity [facility] 2021-01-10 2021-01-10 Case Mitali, [facility] 1.2.840.114 [id number] Univers 00:00:00 00:00:00 Management Kathrin Mckeon 350.1.13.10 [place] [phone] [facility] 231 [facility] 2020-11-08 2020-11-08 Refill [facility] 1.2.840.114 [id number] 00:00:00 00:00:00 Mak Mckeon 350.1.13.10 [place] 4.2.7.2.686 Professio [phone] [facility] [address] [place] [address] 2020-11-08 2020-11-08 Refill Sherwin [facility] 1.2.840.114 [id number] Univers 00:00:00 00:00:00 Mak Mckeon 350.1.13.10 [place] [phone] [facility] 059 [facility] 2020-11-02 2020-11-02 Webbing Supervisor 2, Adc Lab [facility] 1.2.840.114 [id number] Univers 13:24:05 13:39:05 Visit Mak Rosales 350.1.13.10 [place] [phone] [facility] 353 [facility] 2020-11-02 2020-11-02 Webbing Supervisor 2, Adc Lab [facility] 1.2.840.114 [id number] 13:24:05 13:39:05 Visit Lauren 350.1.13.10 [place] 4.2.7.2.[address] Profess[phone] [address] 2020-11-02 2020-11-02 Office [facility] 1.2.840.114 [id number] Univers 11:28:22 11:49:50 Visit Mak Mckeon 350.1.13.10 [place] [phone] Oh dical [facility] 059 [facility] 2020-11-02 2020-11-02 Office [facility] 1.2.840.114 [id number] 11:28:22 11:49:50 Visit Mak Mckeon 350.1.13.10 [place] 4.2.7.2.[address] Professio [phone] [address] 2020-11-02 2020-11-02 Outpatient R [facility] [id number] Univers 11:20:00 11:20:00 MAK simentaly o f [facility] 2020-10-21 2020-10-21 Refill [facility] 1.2.840.114 [id number] Univers 00:00:00 00:00:00 Kathrin Mckeon 350.1.13.10 [place] [phone] [facility] 231 [facility] 2020-10-12 2020-10-12 Patient [facility] 1.2.840.114 [id number] Univers 00:00:00 00:00:00 Outreach Ramesh PRIMARY 350.1.13.10 i ty of [facility] [place]2.7.2.[place] [phone] [address] 2020-09-21 2020-09-21 Office [facility] 1.2.840.114 [id number] Univers 14:18:43 15:09:25 Visit Mak Mckeon 350.1.13.10 [place] [phone] [facility] nal 059 [address] [facility] 2020-09-21 2020-09-21 Outpatient R SHERWIN [facility] [id number] Univers 14:40:00 14:40:00 MAK ity o f [facility] 2020-09-21 2020-09-21 Orders Doctor ARGELIA 1.2.840.114 [id number] Univers 00:00:00 00:00:00 Only Unassigned, BRO 350.1.13.10 ity of [facility] 4.2.7.2.686 [place] [phone] [facility] [address] 2020-08-19 2020-08-19 Emergency [facility], [facility] 1.2.577.350 [id number] Univers 09:44:00 15:00:00 Abigail Mckeon 350.1.13.10 [place] [phone] [facility] [address] 2020-08-19 2020-08-19 Urgent Provider, [facility] 1.2.840.114 [id number] Univers 08:30:48 09:33:22 Care Tahira Bradleye [facility] 350.1.13.10 ity of [place] 4.2.7.2.686 [place] [phone] [facility] [address] One 2020-08-19 2020-08-[address] [facility] [id number] Univers 08:40:00 08:40:00 ity of [facility] 2020-04-25 2020-04-25 Chris Cha [facility] [id number] Univers 00:00:00 00:00:00 K[facility] 350.1.13.10 it y of [place] 4.2.7.2.686 [place] [phone] [address] Office [facility] 2020-04-18 2020-04-18 Urgent Provider, [facility] 1.2.840.114 [id number] Univers 12:58:11 13:18:11 Care Eyad [facility] 350.1.13.10 ity of [place] 4.2.7.2.686 [place] [phone] Oh dical nal [address] Office [facility] 2020-04-18 2020-04-18 Outpatient R EYAD [facility] [id number] Univers 13:00:00 13:00:00 KEV ity [facility] 2020-02-13 2020-02-13 Outpatient R JASMINE, [facility] [id number] Univers 13:15:00 13:15:00 KATHRIN simentaly [facility] 2020-02-13 2020-02-13 Webbing Supervisor Mark Croft Lab Main [facility] 1.2.8 40.114 [id number] Univers 12:49:54 13:04:54 Visit Kathrin Jasmine 350.1. 13.10 [place] [phone] Oh dical nal 353 [facility] 2020-02-13 2020-02-13 Orders Doctor ARGELIA 1.2.840.114 [id number] Univers 00:00:00 00:00:00 Only Unassigned, BRO 350.1.13.10 [place] [facility] 4.2.7.2.686 [place] [phone] [address] 2020-02-12 2020-02-12 [facility] 1.2.840.114 [id number] Univers 00:00:00 00:00:00 Management Kathrin Mckeon 350.1.13.10 [place] [phone] Oh dical nal 231 [facility] 2020-01-12 2020-01-12 Ricardo [facility] 1.2.840.114 [id number] Univers 00:00:00 00:00:00 Management Kathrin Mckeon 350.1.13.10 [place] [phone] Oh dical nal 231 [facility] 2019-10-16 2019-10-16 Refill [facility] 1.2.840.114 [id number] Univers 00:00:00 00:00:00 Kathrin Mckeon 350.1.13.10 [place] [phone] [address] 2019-04-16 2019-04-16 Patient Mitali ILNILAY 1.2.840.114 [id number] Univers 00:00:00 00:00:00 Secure Msg Kathrin Mckeon 350.1.13.10 [place] [phone] [address] Results Test Description Test Time Test Comments Results Result Comments Source POCT MOLECULAR FLU 2022-09-13 18:28:18 Test Item Value Reference Range Interpretation Comme nts POCT Molecular FluA (test code = 61506-5) Negative Negative POCT Molecular FluB (test code = 19419-9) Negative Negative Lab Interpretation (test code = 18875-4) Normal [facility] SARS-COV-2 ANTIGEN (BINAX NOW)2022-09-13 18:26:00 Test Item Value Reference Range Interpretation Comments POCT SARS-COV-2 ANTIGEN (test Not Detected Not Detected code = 61539-3) On board controls acceptable Yes with C Line (test code = 3574) Lab Interpretation (test code = Normal 80675-8) [facility] MOLECULAR [id number] 19:45:04 Test Item Value Reference Range Interpretation Comments POCT Molecular Strep (test code = Negative Negative 99317-9) Lab Interpretation (test code = Normal 88585-9) [facility]
[2022-11-26] MEDS ORDERED: ONDANSETRON 4 MG/2 ML VIAL ONE ×4 (03:16→19:45)
[2022-11-26] MEDS ORDERED: KETOROLAC 30 MG/ML INJ ONE (04:05)
[2022-11-26] MEDS ORDERED: CEFTRIAXONE 1000 MG/VIAL ONE (04:05)
[2022-11-26] MEDS ORDERED: MORPHINE 4 MG/ML SYR ONE (04:05)
[2022-11-26] MEDS ORDERED: NA CHLORIDE 0.9% 1,000 ML ONE (04:06)
[2022-11-26] MEDS ORDERED: NA CHLORIDE 0.9% 50 ML ONE (04:06)
[2022-11-26] MEDS ORDERED: METRONIDAZOLE 500mg IVPB 500 MG/100 ML BAG IV ONE ×3 (04:06→17:43)
[2022-11-26 04:11] LABS: Absolute Lymphocytes (CBC) 2.8 K/uL (0.7-4.9); Hematocrit 37.5 % (36.0-45.0); Lymphocytes % 25.7 % (15.3-44.8); MCV 82.3 fL (80-100); MPV 8.4 fL (7.6-11.3); RBC Red Blood Cell Count 4.56 M/uL (3.86-4.86)
[2022-11-26 04:22] LABS: Albumin 3.3 g/dL (3.4-5.0); Bilirubin Total 0.4 mg/dL (0.2-1.0); Protein, Total 7.9 g/dL (6.4-8.2)
[2022-11-26 04:23] LABS: Potassium 4.2 mEq/L (3.5-5.1)
[2022-11-26 04:30] LABS: Specific Gravity 1.009 (1.005-1.030); Urine Bacteria None Seen /HPF (<20); Urine Bilirubin NEGATIVE (Negative); Urine Blood Negative (Negative); Urine Clarity Clear (Clear); Urine Color Colorless (Yellow); Urine Glucose NEGATIVE (Negative); Urine Mucus Slight /HPF (None Seen); Urine Protein NEGATIVE (Negative); Urine RBC None Seen /HPF (None Seen); Urine Urobilinogen Normal (Normal); Urine pH 5.5 (5.0-7.0)
--- NOTE | 2022-11-26 06:17 | ER ---
Nurse's Notes [facility] Name: Adilson Patel Age: 52 yrs Sex: Female : 1970 Arrival Date: 11/26/2022 Time: 02:40 Bed 19 Private MD: Diagnosis: Diverticulitis of large intestine without perforation or abscess without bleeding;Acute sigmoid diverticulitis Presentation: 11/26 03:02 Chief complaint: Patient states: lower abdominal pain began yesterday and gradually kl worsened reports nausea no vomiting and BM yesterday Has had diverticulitis and pancreatitis. Coronavirus screen: Vaccine status: Patient reports being unvaccinated. Ebola Screen: Patient negative for fever greater than or equal to 101.5 degrees Fahrenheit, and additional compatible Ebola Virus Disease symptoms. Initial Sepsis Screen: Does the patient meet any 2 criteria? No. Patient's initial sepsis screen is negative. Does the patient have a suspected source of infection? No. Patient's initial sepsis screen is negative. Risk Assessment: Do you want to hurt yourself or someone else? Patient reports no desire to harm self or others. Onset of symptoms was November 25, 2022. 03:02 Method Of Arrival: Ambulatory kl 03:02 Acuity: OVIDIO 3 kl Triage Assessment: 03:05 General: Appears distressed, uncomfortable, well groomed, well developed, Behavior is kl anxious, crying. Pain: Complains of pain in right lower quadrant and left lower quadrant Pain currently is 10 out of 10 on a pain scale. Quality of pain is described as crampy. GI: Reports lower abdominal pain, nausea. 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 - Social history:: Smoking status: Patient denies any tobacco usage or history of. - Family history:: not pertinent. Screenin:05 [facility] ED Fall Risk Assessment (Adult) Score/Fall Risk Level 0 - 2 = Low Risk. Abuse as6 screen: Denies threats or abuse. Denies injuries from another. Nutritional screening: No deficits noted. Tuberculosis screening: No symptoms or risk factors identified. Assessment: 04:13 General: Appears uncomfortable, Behavior is calm, cooperative. Pain: Complains of pain as6 in left lower quadrant and right lower quadrant. GI: Reports lower abdominal pain, nausea. 07:00 Reassessment: No changes from previously documented assessment. Patient and/or family kc6 updated on plan of care and expected duration. Pain level reassessed. Patient is alert, oriented x 3, equal unlabored respirations, skin warm/dry/pink. 07:15 Reassessment: [facility] for further charting. kc6 Vital Signs: 03:02 BP 156 / 80; Pulse 85; Resp 18; Temp 97.6(O); Pulse Ox 100% on R/A; Weight 79.5 kg (M); kl Pain 10/10; 04:12 BP 135 / 71; Pulse 78; Resp 18 S; Pulse Ox 98% on R/A; as6 03:02 Pain Scale: Adult kl ED Course: 02:43 Patient arrived in ED. jj6 02:50 Abel Suarez MD is Attending Physician. sp4 03:04 Triage completed. kl 03:16 Inserted saline lock: 20 gauge in right forearm, using aseptic technique. Blood oe collected. 03:21 Lipase Sent. oe 03:21 CMP Sent. oe 03:21 CBC with Diff Sent. oe 03:26 Urinalysis W/Microscopic Sent. oe 03:55 Cedric Beyer RN is Primary Nurse. as6 03:55 Arm band placed on. as6 04:54 Abdomen In Process Unspecified. EDMS 06:06 Bed in low position. Call light in reach. Side rails up X2. as6 06:16 Hilario Jensen MD is Hospitalizing Provider. sp4 06:31 No provider procedures requiring assistance completed. Patient admitted, IV remains in as6 place. Administered Medications: 03:16 Drug: Ondansetron IVP 4 mg Route: IVP; Site: right forearm; kl 04:11 Drug: morphine IVP or IV 4 mg Route: IVP; Infused Over: 4 mins; Site: right forearm; as6 04:11 Drug: Ketorolac IVP 30 mg Route: IVP; Site: right forearm; as6 04:11 Drug: Ondansetron IVP 4 mg Route: IVP; Site: right forearm; as6 04:11 Drug: NS 0.9% IV 1000 ml Route: IV; Rate: 1 bolus; Site: right forearm; as6 04:11 Drug: Rocephin - Rocephin (cefTRIAXone) IVPB 1 grams Route: IVPB; Infused Over: 30 as6 mins; Site: right forearm; 04:12 Drug: metroNIDAZOLE IVPB 500 mg Volume: 100 ml; Route: IVPB; Rate: 200 ml/hr; Infused as6 Over: 30 mins; Site: right forearm; Medication: 06:05 VIS not applicable for this client. as6 Outcome: 06:16 Decision to Hospitalize by Provider. sp4 06:31 Admitted to ER Hold. Please see [facility] for further documentation. as6 06:31 Condition: stable 06:31 Instructed on the need for admit. 20:36 Patient left the ED. lg3 Signatures: Dispatcher [employer] EDMarlee Hagen, RN Timothy Brown Lacie, RN RN lg3 Margarita Morrison Ashby, RN RN as6 Campbell, Kaitlyn, RN RN kc6 Potepalov, Sergey, MD MD sp4
--- NOTE | 2022-11-26 06:17 | EDPHYS ---
Physician Documentation [facility] Name: Adilson Patel Age: 52 yrs Sex: Female : 1970 Arrival Date: 11/26/2022 Time: 02:40 Bed 19 Private MD: ED Physician Abel Suarez HPI: 11/26 02:51 This 52 yrs old Female presents to ER via Unassigned with complaints of sp4 Pelvic Pain, Nausea. 06:10 Very pleasant 53-year-old female with history of diabetes, diverticulitis, sp4 hypercholesterolemia, hypertension presents with acute onset of lower abdominal pain mostly on the left side starting yesterday evening associated with nausea without vomiting. Patient denied fever, states pain is similar to prior episode of diverticulitis. . 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 - Social history:: Smoking status: Patient denies any tobacco usage or history of. - Family history:: not pertinent. ROS: 06:10 Constitutional: Negative for fever, chills, and weight loss, Eyes: Negative for injury, sp4 pain, redness, and discharge, ENT: Negative for injury, pain, and discharge, Neck: Negative for injury, pain, and swelling, Cardiovascular: Negative for chest pain, palpitations, and edema, Respiratory: Negative for shortness of breath, cough, wheezing, and pleuritic chest pain, Abdomen/GI: Negative for , vomiting, diarrhea, and constipation, positive for abdominal pain and nausea positive for lower abdominal pain on the left Back: Negative for injury and pain, : Negative for injury, bleeding, discharge, and swelling, MS/Extremity: Negative for injury and deformity, Skin: Negative for injury, rash, and discoloration, Neuro: Negative for headache, weakness, numbness, tingling, and seizure, Psych: Negative for depression, anxiety, Allergy/Immunology: Negative for hives, rash, and allergies Endocrine: Negative for neck swelling, polydipsia, polyuria, polyphagia, and weight changes Hematologic/Lymphatic: Negative for swollen nodes, abnormal bleeding, and unusual bruising Exam: 06:10 Constitutional: This is a well developed, well nourished patient who is awake, alert, sp4 uncomfortable appearing female Head/Face: Normocephalic, atraumatic. Eyes: Pupils equal round and reactive to light, extra-ocular motions intact. Lids and lashes normal. Conjunctiva and sclera are not injected. Cornea within normal limits. Periorbital areas with no swelling, redness, or edema. ENT: Nares patent. No nasal discharge, no septal abnormalities noted. Tympanic membranes are normal and external auditory canals are clear. Oropharynx with no redness, swelling, or masses, exudates, or evidence of obstruction, uvula midline. Mucous membranes moist. 06:14 Neck: Trachea midline, no thyromegaly or masses palpated, and no cervical sp4 lymphadenopathy. Supple, full range of motion without nuchal rigidity, or vertebral point tenderness. No Meningismus. Chest/axilla: Normal chest wall appearance and motion. Nontender with no deformity. No lesions are appreciated. Cardiovascular: Regular rate and rhythm with a normal S1 and S2. No gallops, murmurs, or rubs. Normal PMI, no JVD. No pulse deficits. Respiratory: Lungs have equal breath sounds bilaterally, clear to auscultation and percussion. No rales, rhonchi or wheezes noted. No increased work of breathing, no retractions or nasal flaring. Abdomen/GI: Soft,. No distension or tympany. No rigidity, positive tenderness diffusely worse in left lower quadrant, positive rebound, positive voluntary guarding Back: No spinal tenderness. No costovertebral tenderness. Skin: Warm, dry with normal turgor. Normal color with no rashes, no lesions, and no evidence of cellulitis. MS/ Extremity: Pulses equal, no cyanosis. Neurovascular intact. Full, normal range of motion. Neuro: Awake and alert, GCS 15, oriented to person, place, time, and situation. Cranial nerves II-XII grossly intact. Motor strength 5/5 in all extremities. Sensory grossly intact. Psych: Awake, alert, with orientation to person, place and time. Behavior, mood, and affect are within normal limits Vital Signs: 03:02 BP 156 / 80; Pulse 85; Resp 18; Temp 97.6(O); Pulse Ox 100% on R/A; Weight 79.5 kg (M); kl Pain 05/08; 04:12 BP 135 / 71; Pulse 78; Resp 18 S; Pulse Ox 98% on R/A; as6 03:02 Pain Scale: Adult kl MDM: 02:51 Patient medically screened. sp4 06:14 Differential diagnosis: Nonspecific abd pain, gastritis, cholecystitis, pancreatitis, sp4 appendicitis, diverticulitis, viral gastroenteritis, gastroenteritis. Data reviewed: vital signs, nurses notes, old medical records, lab test result(s), radiologic studies, CT scan. Consideration of Admission/Observation Patient was admitted/placed on observation. Escalation of care including admission/observation considered. Management of patient was discussed with the following: Hospitalist: Admitting hospital. ED course: 52-year-old female presents with acute onset left lower quadrant abdominal pain CT revealed sigmoid diverticulitis without perforation or free air , patient was given IV Rocephin and Flagyl, patient admitted in stable condition for management of diverticulitis. 11/26 02:51 Order name: Urinalysis W/Microscopic; Complete Time: 05:13 sp4 11/26 02:51 Order name: CBC with Diff; Complete Time: 05:13 sp4 11/26 02:51 Order name: CMP; Complete Time: 05:13 sp4 11/26 02:51 Order name: Lipase; Complete Time: 05:13 sp4 11/26 07:37 Order name: Glucose, Ancillary Testing EDMS 11/26 11:45 Order name: Glucose, Ancillary Testing EDMS 11/26 17:38 Order name: Glucose, Ancillary Testing EDMS 11/26 04:28 Order name: Abdomen EDMS 11/26 02:51 Order name: IV Saline Lock; Complete Time: 03:16 sp4 11/26 02:51 Order name: Labs collected and sent; Complete Time: 03:16 sp4 Administered Medications: 03:16 Drug: Ondansetron IVP 4 mg Route: IVP; Site: right forearm; kl 04:11 Drug: morphine IVP or IV 4 mg Route: IVP; Infused Over: 4 mins; Site: right forearm; as6 04:11 Drug: Ketorolac IVP 30 mg Route: IVP; Site: right forearm; as6 04:11 Drug: Ondansetron IVP 4 mg Route: IVP; Site: right forearm; as6 04:11 Drug: NS 0.9% IV 1000 ml Route: IV; Rate: 1 bolus; Site: right forearm; as6 04:11 Drug: Rocephin - Rocephin (cefTRIAXone) IVPB 1 grams Route: IVPB; Infused Over: 30 as6 mins; Site: right forearm; 04:12 Drug: metroNIDAZOLE IVPB 500 mg Volume: 100 ml; Route: IVPB; Rate: 200 ml/hr; Infused as6 Over: 30 mins; Site: right forearm; Disposition Summary: 11/26/22 06:16 Hospitalization Ordered Hospitalization Status: Inpatient Admission sp4 Provider: Hilario Jensen spJimenez Condition: Stable sp4 Problem: new sp4 Symptoms: have improved sp4 Bed/Room Type: Standard sp4 Location: Telemetry/MedSurg (Inpatient)(11/26/22 19:36) eb1 Room Assignment: [facility](11/26/22 19:36) eb1 Diagnosis - Diverticulitis of large intestine without perforation or abscess without bleeding sp4 - Acute sigmoid diverticulitis sp4 Forms: - Medication Reconciliation Form sp4 - SBAR form sp4 Signatures: Dispatcher [employer] EDMS Marlee Muir RN Yari Ayala RN RN Carole Cordoba RN RN eb1 Cedric Beyer RN RN as6 Abel Suarez MD MD sp4 Corrections: (The following items were deleted from the chart) 04:28 03:46 Abdomen W/ Con+CT.RAD.BRZ ordered. EDNH EDMS 06:48 06:16 Telemetry/MedSurg (Inpatient) sp4 cg 06:48 06:16 sp4 cg 19:36 06:48 BR ER HOLD cg eb1 19:36 06:48 ERHOLD- cg eb1
--- NOTE | 2022-11-26 06:22 | P.HP ---
Certification for Inpatient Patient admitted to: Inpatient With expected LOS: >2 Midnights Patient will require the following post-hospital care: None Practitioner: I am a practitioner with admitting privileges, knowledge of patient current condition, hospital course, and medical plan of care. Services: Services provided to patient in accordance with Admission requirements found in Title 42 Section 412.3 of the Code of Federal Regulations <Alireza Woods Lucho Garcia - Last Filed: 11/26/22 06:18> Patient History Date of Service: 11/26/22 Reason for admission: Acute sigmoid diverticulitis History of Present Illness: 52-year-old female with history of djh-twwdrzn-afuyxprlu diabetes, hypertension, hyperlipidemia presents the emergency department with chief complaint of 1 day of left lower quadrant abdominal pain, nausea. She was evaluated in the emergency department her labs were significant for white blood cell count of 10.7 glucose 172 lipase [address] shows acute sigmoid diverticulitis without complications. She was given IV antibiotics Rocephin/Flagyl, will admit under observation for acute diverticulitis. Lipase is greater than 3 times upper limit of normal, also has mild epigastric tenderness, no CT findings for acute pancreatitis. He does report with previous episodes of enteritis/diverticulitis she has had mild pancreatitis. Will admit for further evaluation and management. - Past Medical/Surgical History Diabetic: No -: Zye-pogcxvr-vvopskclo diabetes mellitus -: Hypertension -: Hyperlipidemia -: 03/30/2015 Heart Cath Psychosocial/ Personal History: Patient lives at home with family - Family History Mother -: Heart disease (WPW) Brother -: Heart disease (CABG) - Social History Smoking Status: Never smoker Alcohol use: No CD- Drugs: No Caffeine use: No Place of Residence: Home <MariaaAlireza caraballo - Last Filed: 11/26/22 06:18> Date of Service: 11/26/22 <Hilario Jensen - Last Filed: 11/26/22 11:40> Allergies bacitracin [From Neosporin ([id number])] Allergy (Intermediate, Verified 03/28/15 07:58) Hives/Rash bacitracin zinc [From Neosporin ([id number]-[id number]-[id number])] Allergy (Intermediate, Verified 03/28/15 07:58) Hives/Rash latex Allergy (Intermediate, Verified 03/28/15 07:58) Hives/Rash neomycin sulfate [From Neosporin ([id number])] Allergy (Intermediate, Verified 03/28/15 07:58) Hives/Rash polymyxin B [From Neosporin (mha-tzc-vfnwh)] Allergy (Intermediate, Verified 03/28/15 07:58) Hives/Rash Latex, Natural Rubber Allergy (Unverified 03/21/17 07:09) Unknown erythromycin (bulk) Allergy (Uncoded 04/14/15 23:51) Unknown mycins Allergy (Uncoded 03/21/17 07:09) Unknown Home Medications: Acetylcysteine [Nac] 600 mg PO DAILY 11/26/22 Aspirin [Aspirin EC 81 MG] 81 mg PO DAILY 11/26/22 Atorvastatin Calcium [Lipitor] 40 mg PO DAILY 11/26/22 Glipizide [Glipizide ER] 10 mg PO BID* 11/26/22 Loratadine [Claritin] 10 mg PO DAILY 11/26/22 Losartan Potassium [Cozaar] 50 mg PO DAILY 11/26/22 Metformin ER [Glucophage ER] 500 mg PO BID 11/26/22 Montelukast [Singulair] 10 mg PO DAILY 11/26/22 Review of Systems 10-point ROS is otherwise unremarkable Gastrointestinal: Nausea, Abdominal Pain <Alireza Woods Jose - Last Filed: 11/26/22 06:18> Physical Examination - Physical Exam General: Alert, In no apparent distress, Oriented x3 HEENT: Atraumatic, PERRLA, Mucous membr. moist/pink, EOMI, Sclerae nonicteric Neck: Supple, 2+ carotid pulse no bruit, No LAD, Without JVD or thyroid abnormality Respiratory: Clear to auscultation bilaterally, Normal air movement Cardiovascular: Regular rate/rhythm, Normal S1 S2 Gastrointestinal: Normal bowel sounds, Tenderness (Moderate left lower quadrant tenderness, mild epigastric tenderness), Rebound (Positive rebound tenderness), Guarding (Positive voluntary guarding left lower quadrant) Musculoskeletal: No tenderness Integumentary: No rashes Neurological: Normal speech, Normal strength at 5/5 x4 extr, Normal tone, Normal affect - Studies Laboratory Data (last 24 hrs) 11/26/22 03:12: Sodium 137, Potassium 4.2, BUN 10, Creatinine 0.71, Glucose 172 H, Total Bilirubin 0.4, AST 31, ALT 42, Alkaline Phosphatase 117, Lipase 269 H 11/26/22 03:12: WBC 10.70, Hgb 12.0, Hct 37.5, Plt Count 229 <Alireza Woods - Last Filed: 11/26/22 06:18> - Studies Laboratory Data (last 24 hrs) 11/26/22 03:12: Sodium 137, Potassium 4.2, BUN 10, Creatinine 0.71, Glucose 172 H, Total Bilirubin 0.4, AST 31, ALT 42, Alkaline Phosphatase 117, Lipase 269 H 11/26/22 03:12: WBC 10.70, Hgb 12.0, Hct 37.5, Plt Count 229 <Hilario Jensen - Last Filed: 11/26/22 11:40> Assessment and Plan - Plan Assessment: Acute sigmoid diverticulitis Acute pancreatitis Diabetes mellitus type 3jvw-kbyesfb-heoodnbgy Hypertension Hyperlipidemia Plan: Acute sigmoid diverticulitis N.p.o., IVF, IV antibiotics,. Pain medications and antiemetics. Serial abdominal exams. No complications on CT currently. Moderate tenderness. Consider surgical consult. Acute pancreatitis Lipase greater than 3 times upper limits of normal, mild epigastric tenderness, no CT findings for acute pancreatitis. Continue IVF, n.p.o. status. She has reported similar episodes in the past when she has enteritis/diverticulitis. Diabetes mellitus type 8pnd-bhedeek-jsbakeins Q6h accucheck, SSI Hypertension Hyperlipidemia Hold oral medications, restart when appropriate. DVT PPX: Lovenox Code status: Full Discharge Plan: Home Plan to discharge in: 24 Hours - Advance Directives Does patient have a Living Will: No Does patient have a Durable POA for Healthcare: No - Code Status/Comfort Care Code Status Assessed: Yes (full code) Critical Care: No Time Spent Managing Pts Care (In Minutes): 55 <Alireza Woods - Last Filed: 11/26/22 06:18> Physician Review: Patient Assessed, Agree with Above Assessment and Plan Physician Review Additional Text: This is a pleasant 52-year-old female admitted for acute sigmoid diverticulitis. Per CT report, no evidence of abscess or free air. General Surgery consulted and she was evaluated by Dr. Driscoll. NPO for now and advance diet as tolerated. Continue IV antibiotics. She was counseled that diverticulitis can be a early sign of colon cancer. She was advised to have a colonoscopy in 4-6 weeks to evaluate for colon cancer. She verbalized understanding and agreed to make this appointment. Hilario Jensen MD <Hilario Jensen - Last Filed: 11/26/22 11:40>
[2022-11-26] MEDS ORDERED: CIPROFLOXACIN 400mg IV 400 MG/200 ML BAG IV ONE ×2 (06:32→06:43)
[2022-11-26] MEDS ORDERED: Ringers Lactate 1,000 ML IV ONE ×2 (06:43→15:11)
[2022-11-26] MEDS: Ringers Lactate 1,000 ML IV SCH ×3 (06:45→23:00)
[2022-11-26 06:46] VITALS: BMI 31.0
[2022-11-26] MEDS: INSULIN -REGULAR HUMAN 50 UNIT/0.5 ML ML SQ SCH ×4 (07:30→20:36)
[2022-11-26] MEDS ORDERED: INSULIN -REGULAR HUMAN 50 UNIT/0.5 ML ML ONE (08:22)
[2022-11-26] MEDS ORDERED: MORPHINE 2 MG/ML SYR ONE ×3 (08:22→19:45)
[2022-11-26] MEDS: MORPHINE 2 MG/ML SYR IV PRN ×3 (08:24→19:45)
[2022-11-26] MEDS: METRONIDAZOLE 500mg IVPB 500 MG/100 ML BAG IV SCH ×2 (09:00→17:00)
[2022-11-26] MEDS ORDERED: ENOXAPARIN 40 MG/0.4 ML SQ SCH (09:00)
--- NOTE | 2022-11-26 10:41 | CON ---
Date of Consultation: 11/26/2022 Reason For Consultation: Abdominal pain. History Of Present Illness: The patient is a 52-year-old female, sent in with 1-day history of left- sided abdominal pain and she came to the emergency room for evaluation. She denies any vomiting, but she does have nausea. No diarrhea or constipation. No blood in her stool. No dysuria or hematuria . No family history of colorectal malignancy. She has had a similar episode of diverticulitis in e past. She has never had a colonoscopy. She denies any sore throat, runny nose, cough, headaches, dizziness, chest pain, fever, or chills. Review of Systems: Otherwise unremarkable. Past Medical History: Significant for type 2 diabetes, hypertension, hyperlipidemia. Past Surgical History: Heart catheterization, which was normal 7 years ago. Allergies: REVIEWED AND INCLUDE BACITRACIN, LATEX, NEOMYCIN, POLYMYXIN, ERYTHROMYCIN. Social History: The patient does not smoke or drink alcohol. Family History: Significant for heart disease. Physical Examination: Vital Signs: Stable. She is currently afebrile. General: She is awake, alert, and oriented x3. Head and Neck: Cranial nerves 2 through 12 grossly within normal limits. No neck masses. No JVD. Throat clear. Neck is supple. Chest: Clear. Heart: S1, S2. Abdomen: Soft, nondistended. Positive bowel sounds. Positive right lower quadrant tenderness with rebound. No rigidity or guarding. Extremity: Adequately perfused. Nontender. Neuro: Nonfocal. Laboratory Data: Shows white count of 10.7. Chemistry reviewed. Lipase is slightly elevated at [address] of the abdomen and pelvis shows acute sigmoid diverticulitis. Assessment: Acute sigmoid diverticulitis. Recommendations: Admit, n.p.o. except ice chips for now, IV fluids, IV antibiotics, serial abdominal exam, slowly advance clear liquids to full liquids, low-fiber, colonoscopy in 4-6 weeks as an outpat ient, 2 weeks of outpatient oral antibiotic therapy and may be evaluation by the colorectal surgeon f or possible segmental resection in the future. JOSE ANGEL/MODL Voice ID: [id number] Report ID: [id number]
[2022-11-26] MEDS: ONDANSETRON 4 MG/2 ML VIAL IV PRN ×2 (13:42→19:46)
[2022-11-26 20:54] VITALS: O2SAT 98
[2022-11-27] MEDS: METRONIDAZOLE 500mg IVPB 500 MG/100 ML BAG IV SCH ×3 (00:12→16:37)
[2022-11-27] MEDS: Ringers Lactate 1,000 ML IV SCH ×4 (00:17→22:04)
[2022-11-27] MEDS: ONDANSETRON 4 MG/2 ML VIAL IV PRN ×2 (06:55→22:04)
[2022-11-27] MEDS: MORPHINE 2 MG/ML SYR IV PRN ×2 (06:55→16:37)
[2022-11-27 07:16] LABS: Absolute Lymphocytes (CBC) 1.9 K/uL (0.7-4.9); Hematocrit 33.6 % (36.0-45.0); Lymphocytes % 21.6 % (15.3-44.8); MCV 82.3 fL (80-100); MPV 7.7 fL (7.6-11.3); RBC Red Blood Cell Count 4.08 M/uL (3.86-4.86)
[2022-11-27] MEDS: INSULIN -REGULAR HUMAN 50 UNIT/0.5 ML ML SQ SCH ×4 (07:30→20:43)
[2022-11-27 07:42] LABS: Albumin 2.7 g/dL (3.4-5.0); Bilirubin Total 0.5 mg/dL (0.2-1.0); Protein, Total 6.5 g/dL (6.4-8.2); Thyroid Stimulating Hormone 1.96 uIU/mL (0.358-3.740)
[2022-11-27] MEDS: ENOXAPARIN 40 MG/0.4 ML SQ SCH (07:51)
--- NOTE | 2022-11-27 10:22 | RAD REPORT ---
EXAM DESCRIPTION: CT - Abdomen Pelvis W Contrast - 11/26/2022 7:23 am CLINICAL HISTORY: 52 years Female ABD PAIN COMPARISON: CT abdomen pelvis 10/09/2022 TECHNIQUE: CT of the abdomen and pelvis with intravenous contrast. All CT scans at this facility use dose modulation, iterative reconstruction, and/or weight based dosi ng when appropriate to reduce radiation dose to as low as reasonably achievable. FINDINGS: Lower thorax: Bibasilar atelectasis. Abdomen: Stomach: Within normal limits Liver: No focal lesions. Hepatic steatosis. No intrahepatic ductal distention. Gallbladder: Nondistended Pancreas: Within normal limits Spleen: Within normal limits Right kidney: No hydronephrosis. No focal lesion. Left kidney: No hydronephrosis. No focal lesion. Adrenal glands: Within normal limits Vascular structures: Mild atherosclerosis of the abdominal aorta and major branches. Nodes: No lymphadenopathy by size criteria Pelvis: Small bowel: No significant distention. Appendix: Within normal limits Colon: Sigmoid colonic diverticulosis with superimposed wall thickening and pericolonic stranding. No adjacent rim-enhancing collections. Peritoneum: No free intraperitoneal fluid or air. Bones: No acute bone findings. Bladder: Unremarkable. Reproductive organs: No acute findings. IMPRESSION: 1. Acute sigmoid colonic diverticulitis. No adjacent rim-enhancing collections. No renata e air. 2. Hepatic steatosis. Electronically signed by: Bernard Carmona MD 11/26/2022 5:22 AM CDT Due to temporary technical issues with the PACS/Fluency reporting system, reports are being signed by the in house radiologist without review as a courtesy to ensure prompt reporting. The interpreting r adiologist is fully responsible for the content of the report.
--- NOTE | 2022-11-27 15:07 | PN ---
Date of Progress Note: 11/27/2022 Subjective: The patient is awake, alert. No complaints. Objective: Vital Signs: Stable, afebrile. Abdomen: Soft, nondistended. Minimal tenderness in the left lower quadrant. Assessment: Acute sigmoid diverticulitis. Plan: We will start the patient on clear liquids, slowly advance to full liquids, and low-fiber diet as tolerated. The patient will need to be discharged on oral antibiotics for 3 weeks. Follow up [facility] for colonoscopy in 4-6 weeks. /MODL Voice ID: [id number] Report ID: [id number]
[2022-11-28] MEDS: METRONIDAZOLE 500mg IVPB 500 MG/100 ML BAG IV SCH ×2 (00:21→08:30)
[2022-11-28 04:01] LABS: Absolute Lymphocytes (CBC) 1.5 K/uL (0.7-4.9); Hematocrit 31.2 % (36.0-45.0); Lymphocytes % 23.8 % (15.3-44.8); MCV 82.4 fL (80-100); MPV 7.8 fL (7.6-11.3); RBC Red Blood Cell Count 3.79 M/uL (3.86-4.86)
[2022-11-28 04:21] LABS: Albumin 2.6 g/dL (3.4-5.0); Bilirubin Total 0.4 mg/dL (0.2-1.0); Protein, Total 6.3 g/dL (6.4-8.2)
[2022-11-28] MEDS: Ringers Lactate 1,000 ML IV SCH (07:03)
[2022-11-28] MEDS: INSULIN -REGULAR HUMAN 50 UNIT/0.5 ML ML SQ SCH (07:30)
[2022-11-28] MEDS: ENOXAPARIN 40 MG/0.4 ML SQ SCH (08:30)
[2022-11-28 09:43] VITALS: BP 134/63; TEMP 98.4
[2022-11-28] MEDS: ONDANSETRON 4 MG/2 ML VIAL IV PRN (10:18)
== END 2022-11-28 11:06 | disposition home or self-care (01) ==
LOC: ER 02:40 → ERHOLD 06:14 → 4TH 19:51
PROVIDERS: ADMIT Internal Medicine; ATTEND Hospitalist
DX: K57.32 Diverticulitis of large intestine without perforation or abscess without bleeding (principal); E11.9 Type 2 diabetes mellitus without complications; I10 Essential (primary) hypertension; E78.5 Hyperlipidemia, unspecified; K85.90 Acute pancreatitis without necrosis or infection, unspecified; Z88.3 Allergy status to other anti-infective agents
CPT/HCPCS: 85025 ×3; 81001; 36415 ×3; 80061; 82947 ×11; 84443; 84439; 83690 ×2; 80053 ×3; 74177; 96375; 96374; 99285; Q9967; J1815 ×2; J1650 ×2; J2270 ×5; J2405 ×7; J0744; G0378 ×6; J7120 ×8; J7030; J0696